=== PATIENT | female | born 1960 | race Caucasian/White ===

== ENCOUNTER → 2017-12-12 08:29 | Outpatient (CLI) | payer BC, MEDICARE, SELFPAY ==
--- NOTE | 2017-12-12 09:00 | XR_ITS ---
XR KUB CLINICAL INDICATION: ITS.REASON: TREATMENT TECHNICIAN FOR BE. PT TO BE RESCHEDULED PER ORDERING PHYSICIAN: Ronaldo Morrell MD PATIENT AGE: 57 years COMPARISON: None FINDINGS: Hydraulic Specialist exam obtained with barium in a shows residual stool within the transverse colon. Patient is rescheduled following more thorough bowel prep. There are degenerative changes in the lumbar spine. IMPRESSION: Mild amount of residual stool in the transverse colon
== END ==
PROVIDERS: Family Provider Internal Medicine Adolescent Medicine; PCP Internal Medicine Adolescent Medicine; Visit Provider Surgery
DX: Z86.010 Personal history of colon polyps (principal)
CPT/HCPCS: 74018

== ENCOUNTER → 2017-12-13 08:26 | Outpatient (CLI) | payer BC, MEDICARE, SELFPAY ==
--- NOTE | 2017-12-13 08:32 | FL_ITS ---
FL barium enema CLINICAL INDICATION: Evaluate for neoplasm ITS.REASON: FAILED COLONOSCOPY ORDERING PHYSICIAN: Ronaldo Morrell MD PATIENT AGE: 57 years COMPARISON: None FINDINGS: Case Management Specialist exam is unremarkable aside from some degenerative changes within the lower lumbar spine. The colon is visualized from rectum to cecum. The terminal ileum was not filled. There are scattered diverticula noted within the descending and sigmoid colon. No evidence of diverticulitis. No annular constricting lesions. No fixed polypoid filling defects. Small appendiceal stump did fill IMPRESSION: 1. Diverticulosis. 2. Otherwise negative air contrast barium enema
== END ==
PROVIDERS: Family Provider Internal Medicine Adolescent Medicine; PCP Internal Medicine Adolescent Medicine; Visit Provider Surgery
DX: Z86.010 Personal history of colon polyps (principal)
CPT/HCPCS: 74270

== ENCOUNTER → 2018-02-12 13:33 | Outpatient (CLI) | payer BC, MEDICARE, SELFPAY | PROVIDERS: Family Provider Internal Medicine Adolescent Medicine; PCP Internal Medicine Adolescent Medicine; Visit Provider Obstetrics & Gynecology | DX: N64.59 Other signs and symptoms in breast (principal); R92.8 Other abnormal and inconclusive findings on diagnostic imaging of breast | CPT/HCPCS: 77065 ==

== ENCOUNTER 2018-07-18 10:00 | Outpatient (RCR) | payer BC, MEDICARE, SELFPAY ==
--- NOTE | 2018-07-08 10:29 | HMH.PTOPWND ---
Rehab Outpt Wound Evaluation Rehab OP Wound Evaluation Start: 07/08/18 09:54 Freq: Status: Active Protocol: Document 07/08/18 10:07 CORNELL (Rec: 07/08/18 10:29 PHORPHAN [id number]) Electronically Signed By Ehsan Kim, PT 07/08/18 10:07 Subjective/History History History Pt is 58 yowf who presents with c/o savannah LE edema x ~ 2 yrs with insidious onset of syptoms. She reports edema is increased at night and results in pain and tingling. She reports being prescribed lasix for the edema with no decrease in symptoms. She has hx of appy, CLAUDIA, left foot bunionectomy and hammer toe fixation, right knee lawrence osetotomy, left knee scope, HTN, and fibromyalgia. Lymphedema Eval Classification of Lymphedema Secondary Lymphedema Yes Stemmer's sign Stemmer's Sign no Skin Changes Dry Skin Yes Other Changes Yes Pain Scale Pain Scale (0-10) 8 Affected Extremities Areas Affected by Lymphedema/Edema Right Lower Extremity Left Lower Extremity Manual Lymphatic Drainage Treatment Area MLD Treatment Area Right Lower Extremity Left Lower Extremity Wound Problems/Impairments Impairments Problems/Impairmments Palpation Tenderness Increased Edema Lymphedema Present Subjective C/O Pain Impaired Self Care/Self Management Prognosis Rehab Potential Good Clinical Impression Consistent with Diagnosis Yes Short Term Goals Number of Weeks 4 Decreased Palpation Tenderness Yes: to min Decrease Subjective C/O Pain Yes: 6/10 Patient to Understand Lymphedema Yes Treatment and Exercises Decrease Girth Measurments by (cm) Yes: by 5 cm Senior Care Goals Number of Weeks 8 Decreased Palpation Tenderness Yes: to none Decrease Subjective C/O Pain Yes: 3/10 Patient to be Ind w/ HEP Yes Patient to Adhere Lymphedema Precautions Yes Decrease Girth Measurments by (cm) Yes: by 15 cm Outpatient Therapy Plan of Care Treatment Plan May Include Therapeutic Exercise Including Home Yes Exercise Program Manual Therapy Techniques Yes Neuromuscular Re-education Yes Orthotics/Bracing/Splinting Yes Vasopneumatic Compression Pump
== END 2018-07-18 10:01 | disposition home or self-care (01) ==
LOC: PT 10:00
PROVIDERS: Visit Provider Internal Medicine Adolescent Medicine
DX: I89.0 Lymphedema, not elsewhere classified (principal)
CPT/HCPCS: 97140; 97162; 97760

== ENCOUNTER → 2018-09-22 08:45 | Outpatient (CLI) | payer BC, SELFPAY ==
--- NOTE | 2018-09-22 08:47 | XR_ITS ---
XR DEXA axial skeleton HISTORY: ITS.REASON: SCREENING ORDERING PHYSICIAN: Familia Ordoñez MD PATIENT AGE: 58 years COMPARISON: None FINDINGS: The BMD measured at the [Right] femoral neck is 0.981 g/cm squared with a T score of -0.4. This is considered Normal according to the World Health Organization criteria. Fracture risk is Low. Treatment is advised. L1 L4 density has a T score of 3.4 IMPRESSION: Normal bone density with low fracture risk. Recommend follow-up exam September 2020
--- NOTE | 2018-09-22 08:47 | MM_ITS ---
MM Dig screening mamm BI w/CAD CAD Screening COMPARISON: Digital mammograms with CAD 09/02/2017 and 6 month follow-up views right breast 02/12/2018 INDICATION: There is a history of breast cancer patient's paternal aunt diagnosed after menopause. There have been previous biopsies on each breast for benign disease. TECHNIQUE: Standard CC and MLO images were obtained. R2 CAD reviewed. FINDINGS: Moderate scattered fibroglandular densities are seen throughout both breasts. The asymmetric density central portion of the right breast is stable and unchanged from previous exams. There are scattered benign-appearing microcalcifications in each breast. There is a biopsy clip right breast. There is no suspicious lesion and no suspicious microcalcifications. IMPRESSION: Moderate breast density with no suspicious lesion seen BI-RADS Category: 2 Benign Finding(s) RECOMMENDED FOLLOW-UP: 1YR - 1 YEAR FOLLOW-UP (A letter has been sent to the patient regarding results of the study.)
== END ==
PROVIDERS: PCP Internal Medicine Adolescent Medicine; Visit Provider Obstetrics & Gynecology
DX: Z12.31 Encounter for screening mammogram for malignant neoplasm of breast (principal); Z01.419 Encounter for gynecological examination (general) (routine) without abnormal findings; Z78.0 Asymptomatic menopausal state; Z13.820 Encounter for screening for osteoporosis
CPT/HCPCS: 77067; 77080

== ENCOUNTER 2019-08-10 15:00 | Outpatient (RCR) | payer BC, SELFPAY ==
--- NOTE | 2019-08-06 17:34 | HMH.PTOPEV ---
PT Outpatient Evaluation Rehab PT Outpatient Evaluation Start: 08/06/19 16:36 Freq: Status: Active Protocol: Document 08/06/19 16:36 PDESEROUX (Rec: 08/06/19 17:34 PDESEROUX [id number]) Electronically Signed By Darian Monroe PT 08/06/19 16:36 Outpatient Therapy Subjective History Subjective History Pt. is a 59 year old female who presents to outpatient PT with complaints of chronic L 1st/2nd DIP ft. P !. Pt. reports recent exacerbation beginning in February 2019 d/t walking more. Pt. reports symptom relief with taping and using pads when she 's walking for a prolonged period of time. Pt. 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 Current medications include Lyrica, Furosemide, Diltiazem, Ranitidine, Oxybutynin, and Cyanocobalamin. PMH includes Cortisone inj. L knee, L/R Knee ATS, surgical reconstruction of hammertoe L ft., and a L ft. bunionectomy. Chief Complaint Pain Symptom Type Ache,Numbness Symptoms Relieved By Rest/Positioning,Brace/Support Symptoms Aggravated By Standing,Physical Activity, Walking Prior Functional Limitations None Current Functional Limitations Standing,Squatting,Recreation Activity,Walking,Stairs Symptom Description Constant but Variable Level of pain today (0-10) 6 Pain scale - at its best (0-10) 1 Pain scale - at its worst (0-10) 8 Ankle/Foot Eval Gait Observation General Gait Pattern Observation No Deviations/Normal Assistive Device Ambulation Assistive Device None Palpation Tenderness left Ankle/Foot Palpation Findings Tenderness Ankle/Foot Palpation Overall Comment grade 3 +TTP to 1st/2nd plantar DIP ROM bilateral Ankle/Foot ROM Reason Not Measured Within Functional Limits Great Toe ROM Reason Not Measured Within Functional Limits Accessory Movements Metatarsal Accessory Movements that 1st/2nd DIP L ft. Elicit Symptoms Toe Accessory Movement that Elicit DIP Dorsal [place],DIP Volar Symptoms [place],DIP Medial [place],DIP Lateral [place] MMT bilateral Ankle Dorsiflexion Strength Grade 5 Normal Ankle Plantarflexion Strength Grade 5 Normal
== END 2019-08-24 16:03 | disposition home or self-care (01) ==
LOC: PT.CARL 15:00
PROVIDERS: PCP Internal Medicine Adolescent Medicine; Visit Provider Internal Medicine Adolescent Medicine
DX: M20.42 Other hammer toe(s) (acquired), left foot (principal)
CPT/HCPCS: 97110; 97140; 97163

== ENCOUNTER → 2020-05-16 12:45 | Outpatient (CLI) | payer MEDICARE, BC, SELFPAY ==
--- NOTE | 2020-05-16 12:56 | MM_ITS ---
PROCEDURE: MM DIG SCREENING MAMM BI W/CAD Digital Breast Tomosynthesis Included CLINICAL INDICATION: SCREENING There is a history of breast cancer patient's paternal aunt. There has been a previous biopsy right breast for benign disease. There has been previous bilateral breast reduction surgery. Patient is currently on estrogen COMPARISON: MG DMDB DIG MAMM-DX LILI W/CAD from 09/02/2017 MG DXIMPRT MM Dig mamm DX implant RT CAD from 02/12/2018 MG SCBI MM Dig screening mamm BI w/CAD from 09/22/2018 TECHNIQUE: Standard CC and MLO images and 3D Tomosynthesis was obtained. R2 CAD reviewed. FINDINGS: Diffuse fibroglandular densities are seen throughout both breasts. There multiple benign-appearing micro in a few scattered macro calcifications in each breast. However there is a somewhat irregular asymmetric density upper-outer quadrant right breast with associated microcalcifications which appear to be somewhat indeterminate in appearance and have increased in number since the previous exam 09/22/2018. Recommend the patient return for spot compression magnification views and ultrasound for better evaluation and to determine if biopsy is indicated. No other suspicious abnormality is noted. IMPRESSION: Fibrofatty parenchyma with possible change in asymmetric density right breast with new somewhat indeterminate microcalcifications BI-RAD Category: 0 Need Additional Imaging Evaluation FOLLOW-UP: IMM Immediate Follow-up Recommended (A letter has been sent to the patient regarding results of the study.) Dictated Dr. Lenny Lindquist MD 05/20/2020 11:24 Dr. Lenny Urbina MD in [place] 05/20/2020 11:24
== END ==
PROVIDERS: PCP Internal Medicine Adolescent Medicine; Visit Provider Internal Medicine Adolescent Medicine
DX: Z12.31 Encounter for screening mammogram for malignant neoplasm of breast (principal)
CPT/HCPCS: 77063; 77067

== ENCOUNTER → 2020-05-25 08:11 | Outpatient (CLI) | payer MEDICARE, BC, SELFPAY ==
[2020-05-25 12:08] LABS: Coronavirus 19 IgM Antibody Negative (Negative)
[2020-05-25 12:10] LABS: Coronavirus 19 IgG Antibody Positive (Negative)
== END ==
PROVIDERS: Visit Provider Surgery
DX: Z20.828 Contact with and (suspected) exposure to other viral communicable diseases (principal)
CPT/HCPCS: 36415; 86328

== ENCOUNTER 2020-05-26 07:16 | Day surgery (SDC) | payer MEDICARE, BC, SELFPAY ==
[2020-05-24 12:59] VITALS: BMI 25.8
[2020-05-26] VITALS (7 sets, daily range): BP systolic 89–135; BP diastolic 51–93; PULSE 69–86; RESP 16–18; TEMP 36.3–36.4; O2SAT 94–98
--- NOTE | 2020-05-26 08:23 | P.PN_ITS ---
[facility] Anesthesia Checklist - Patient Identification Patient Identification: Arm Band - Structural Data Admitted From: Home Planned Operative Procedure/s: egd/colonoscopy Consent for Planned Operative Procedure(s) Verified: Yes Verified Documents: Surgical Consent, History and Physical - NPO Status Verified Time NPO: 00:00 - Additional verifications Anesthesia Reactions: No Hx Blood Transfusions: No Blood Transfusion Reaction: No - Airway Assessment C-Spine Mobility Assessed: Yes (mp2) TMJ Mobility Assessed: Yes Dentition: Good Dentition - Neurological Assessment Level of Consciousness: Awake, Alert - Anesthesia Plan Anesthesia Risk discussed: Yes Anesthesia Plan: Verified ASA Class: II Anesthesia Type: MAC [facility] History I have reviewed the patient's past medical history: Yes Medical History: Reports:: Gastroesophageal Reflux Disease(GERD), Hypertension Denies:: Cancer, Diabetes Mellitus Type 1, Diabetes Mellitus Type 2, Internal Pacemaker, Lung Disease, MRSA, Seizures *Have you ever received a pneumonia vaccine?: No *Have you received a flu vaccine this season?: Yes Other Medical History: Denies: Blood Transfusion Reaction Anesthesia experience/problems:: nac Laterality Cases: Right: Arthroscopy Shoulder, Bilateral: Arthroscopy Knee, Carpal Tunnel Release Other Surgeries: Yes: Appendectomy, Cardiac Catheterization, Colonoscopy, Hysterectomy-Total, Other. No: Pacemaker Amputation: No Fractures: No - *Social History Last grade of school completed: High school graduate Smoking Status: Never smoker # Packs/Day (cigarettes): 0 #Yrs smoked (if former smoker): 0 Alcohol Intake: never Substance Use Type: denies use *Occupational Status:: retired Housing: house Household Members: spouse *Travel in the last 8 weeks: None Family Hx:: Unable to obtain
--- NOTE | 2020-05-26 09:17 | HMH.SCOPE ---
- Procedure: Date: 05/26/20 Procedure Performed:: Esophagogastroduodenoscopy with biopsy Colonoscopy with polypectomy Indications:: History of peptic ulcer disease History of colon polyps Diverticulosis Abdominal pain Reflux Note: Significant difficulties in visualization on prior colonoscopy. Barium enema revealed no significant abnormality. Performing Provider:: Ronaldo Morrell MD Referring Provider:: . Sedation:: Monitored anesthesia care Procedure:: After informed consent was obtained the patient was taken to the endoscopy suite. Sedation ensued after the patient was transferred to the left lateral decubitus position. Pulse, blood pressure, and oxygen saturation were monitored throughout the procedure. The endoscope was advanced beyond the duodenal bulb. Retroflexion within the gastric lumen was accomplished. The gastroscope was carefully removed. Digital rectal exam revealed no significant abnormality. The colonoscope was placed in position. The entire colon was evaluated. The colonoscope was carefully removed and the patient was transferred to recovery in stable condition. Please see findings and specimens below for detail. Findings:: Gastroesophageal junction at 35 cm Moderate esophageal spasticity Mild to moderate streaking gastritis Minimal duodenitis Bowel preparation moderate Hemorrhoidal cushions Significant tortuosity of colon (especially sigmoid) Fairly severe spasticity/lack of relaxation Scattered diverticulosis Sessile polyp at 10 cm Specimens:: Antral biopsy Sessile colorectal polyp at 10 cm Recommendations:: Continue proton pump inhibition Timing of repeat colonoscopy is pending pathology but will likely be between 2-3 years secondary to history of complex polyps, spasticity, and lack of relaxation. Ongoing consideration of possible UGI/SBFT, gastric emptying study, and gastroenterology consultation. Complications:: No immediate Estimated blood obtained (mL): 1
== END 2020-05-26 10:18 | disposition home or self-care (01) ==
PROVIDERS: PCP Internal Medicine Adolescent Medicine; Visit Provider Surgery
PROC: 0DJ08ZZ Inspection of Upper Intestinal Tract, Via Natural or Artificial Opening Endoscopic (ICD-10-PCS; CPT 43235; principal; 2020-05-26 08:30)
DX: Z12.11 Encounter for screening for malignant neoplasm of colon (principal); K21.9 Gastro-esophageal reflux disease without esophagitis; K57.30 Diverticulosis of large intestine without perforation or abscess without bleeding; Z86.010 Personal history of colon polyps; K64.0 First degree hemorrhoids; Q43.8 Other specified congenital malformations of intestine; K62.1 Rectal polyp; Z87.11 Personal history of peptic ulcer disease; K22.4 Dyskinesia of esophagus; K29.60 Other gastritis without bleeding; K29.80 Duodenitis without bleeding; I10 Essential (primary) hypertension
CPT/HCPCS: 43239; 45380; 88305; J2704

== ENCOUNTER → 2020-06-07 13:50 | Outpatient (CLI) | payer MEDICARE, BC, SELFPAY ==
--- NOTE | 2020-06-07 13:59 | US_ITS ---
PROCEDURE: MM DIG MAMM DX UNILAT RT CAD Digital Breast Tomosynthesis Included CLINICAL INDICATION: ABN MAMM Abnormal mammogram COMPARISON: US BR US BREAST-RT COMPLETE W/AXILLA from 02/13/2017 MG DXIMPRT MM Dig mamm DX implant RT CAD from 02/12/2018 MG SCBI MM Dig screening mamm BI w/CAD from 09/22/2018 MG MM DIG SCREENING MAMM BI W/CAD from 05/16/2020 US US BREAST RT COMPLETE from 06/07/2020 TECHNIQUE: Spot-compression views performed along with right breast ultrasound FINDINGS: Magnification views of the right breast demonstrates coarse and fine granular somewhat dystrophic calcifications in the upper outer right breast. Suspect that the fine granular calcifications are so shaded with a vessel and therefore biopsy would be prohibitive. Would therefore recommend a six-month follow-up with Mag views to confirm short term stability. Right breast ultrasound: At 10 o'clock there are 2 nodules measuring 8 and 10 mm. These show peripheral areas of increased echogenicity with some heterogeneous decreased echogenicity centrally with some shadowing posteriorly under consistent with partially calcified cyst as seen on the mammogram possibly due to partially calcified oil cyst. No suspicious nodules are evident. IMPRESSION: BI-RAD Category: 3 Probably Benign Finding Short Term Follow-up FOLLOW-UP: 6M 6Month Follow-up (A letter has been sent to the patient regarding results of the study.) Dictated by: Lino Magana MD 06/13/2020 13:35 Lino Magana MD in [place] 06/13/2020 13:35
== END ==
PROVIDERS: PCP Internal Medicine Adolescent Medicine; Visit Provider Internal Medicine Adolescent Medicine
DX: R92.8 Other abnormal and inconclusive findings on diagnostic imaging of breast (principal)
CPT/HCPCS: 76641; 77061; 77065; G0279

== ENCOUNTER → 2020-06-15 16:39 | Outpatient (CLI) | payer MEDICARE, BC, SELFPAY ==
--- NOTE | 2020-06-15 16:43 | XR_ITS ---
PROCEDURE: XR KNEE RT 3V CLINICAL INDICATION: ACUTE PAIN OF R KNEE, EFUSSION, R KNEE COMPARISON: No exams were available for comparison FINDINGS: No fracture or dislocation. No lytic or blastic change. There is normal mineralization. There are minimal osteoarthritic changes of the medial and lateral compartment and at the patellofemoral joint with small suprapatellar effusion. There are 2 screws within the tibial tuberosity Other findings:None. IMPRESSION: Mild osteoarthritis with small knee joint effusion and postsurgical change Dictated by: Lino Magana MD 06/15/2020 17:50 Lino Magana MD in [place] 06/15/2020 17:50
== END ==
PROVIDERS: PCP Internal Medicine Adolescent Medicine; Visit Provider Nurse Practitioner Family
DX: M25.561 Pain in right knee (principal); M25.461 Effusion, right knee
CPT/HCPCS: 73562

== ENCOUNTER → 2020-07-12 08:41 | Outpatient (CLI) | payer MEDICARE, BC, SELFPAY ==
--- NOTE | 2020-07-12 08:41 | FL_ITS ---
PROCEDURE: FL UPPER GI SMALL BOWEL CLINICAL INDICATION: reflux Feels like food is stuck in stomach COMPARISON: No exams were available for comparison TECHNIQUE: FLUOROSCOPY TIME : 2 minutes and 9 seconds FINDINGS: The divider operator exam shows a faint soft tissue calcification along the mid aspect of the abdomen on the left. There are degenerative changes in the lumbar spine. There is some tertiary contraction of the esophagus. No hiatal hernia or annular constricting lesion. Stomach and duodenum have an unremarkable appearance. No ulcer or mass evident. The small bowel is unremarkable. No obstructing lesions masses or mucosal abnormalities. IMPRESSION: Mild esophageal dysmotility Otherwise negative upper GI and small-bowel follow-through. Dictated by: Lino Magana MD 07/12/2020 16:33 Lino Magana MD in [place] 07/12/2020 16:33
== END ==
PROVIDERS: PCP Internal Medicine Adolescent Medicine; Visit Provider Surgery
DX: K21.0 Gastro-esophageal reflux disease with esophagitis (principal); R10.10 Upper abdominal pain, unspecified
CPT/HCPCS: 74246; 74248

== ENCOUNTER → 2020-07-25 09:39 | Outpatient (CLI) | payer MEDICARE, BC, SELFPAY ==
--- NOTE | 2020-07-25 09:52 | NM_ITS ---
PROCEDURE: NM GASTRIC EMPTYING STUDY CLINICAL INDICATION: REFLUX AND UPPER ABD PAIN COMPARISON: No exams were available for comparison TECHNIQUE: Dose 0.58 mCi technetium sulfur colloid in radial labeled meal FINDINGS: The 1/2 emptying time is 72 minutes which is normal. At 243 minutes there was 19 percent retention. Images do not demonstrate any reflux. IMPRESSION: The 1/2 emptying time is normal at 72 minutes. However there was some delayed retention of approximately 19 percent at 240 minutes. Dictated by: Lino Magana MD 07/25/2020 14:45 Lino Magana MD in [place] 07/25/2020 14:45
--- NOTE | 2020-07-25 10:47 | HMH.ITSHM ---
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 []PROPRANOLOL PREGABALIN OXYBUTININ FUROSEMIDE ESTRADIOL DILTIAZEM SUCRALFATE OMEPRAZOLE
== END ==
PROVIDERS: PCP Internal Medicine Adolescent Medicine; Visit Provider Surgery
DX: K21.9 Gastro-esophageal reflux disease without esophagitis (principal); R10.10 Upper abdominal pain, unspecified
CPT/HCPCS: 78264; A9541

== ENCOUNTER 2020-08-30 10:00 | Outpatient (RCR) | payer MEDICARE, BC, SELFPAY | END 2020-09-05 17:30 | disposition home or self-care (01) | LOC: PT.CARL 10:00 | PROVIDERS: PCP Internal Medicine Adolescent Medicine; Visit Provider Orthopaedic Surgery | DX: M25.561 Pain in right knee (principal) | CPT/HCPCS: 97010; 97014; 97110; 97140; 97163; G0283 ==

== ENCOUNTER → 2020-10-17 09:30 | Outpatient (POV) | payer MEDICARE, BC, SELFPAY | PROVIDERS: Visit Provider Nurse Practitioner Family | DX: Z00.00 Encounter for general adult medical examination without abnormal findings (principal) ==

== ENCOUNTER → 2020-11-17 13:25 | Outpatient (CLI) | payer MEDICARE, BC, SELFPAY ==
--- NOTE | 2020-11-17 13:31 | XR_ITS ---
PROCEDURE: XR HAND RT MIN 3V CLINICAL INDICATION: OSTEOARTHRITIS Pain COMPARISON: No exams were available for comparison FINDINGS: No fracture or dislocation. No lytic or blastic change. There is normal mineralization. Mild osteoarthritic changes are present at the 1st metacarpophalangeal joint and 1st interphalangeal joint as well as the DIP and PIP of the 2nd digit and the DIP of the 3rd and 4th fingers. There has been prior joint replacement at the 1st carpal metacarpal joint with a metallic ball at this joint space. Other findings:None. IMPRESSION: Mild osteoarthritic changes. Dictated by: Lino Magana MD 11/17/2020 15:57 Lino Magana MD in [place] 11/17/2020 15:57
--- NOTE | 2020-11-17 13:31 | MM_ITS ---
PROCEDURE: MM DIG MAMM DX UNILAT RT CAD Digital Breast Tomosynthesis Included CLINICAL INDICATION: 6 mth f/u rt breast calcifications COMPARISON: MG SCBI MM Dig screening mamm BI w/CAD from 09/22/2018 MG MM DIG SCREENING MAMM BI W/CAD from 05/16/2020 MG MM DIG MAMM DX UNILAT RT CAD from 06/07/2020 TECHNIQUE: Standard images performed along with Mag views and 3D tomosynthesis FINDINGS: Average fibroglandular tissue. Multiple benign areas of calcification are noted with suspected or oil cyst. Indeterminate calcification noted in the upper outer aspect of the right breast. The calcifications may have slightly increased in number. Stereotactic biopsy suggested for further evaluation. IMPRESSION: BI-RAD Category: 4 Suspicious Abnormality - Biopsy Considered FOLLOW-UP: BIO Biopsy Recommended (A letter has been sent to the patient regarding results of the study.) Dictated by: Lino Magana MD 11/25/2020 13:16 Lino Magana MD in [place] 11/25/2020 13:16
--- NOTE | 2020-11-17 13:31 | XR_ITS ---
PROCEDURE: XR HAND LT MIN 3V CLINICAL INDICATION: Pain COMPARISON: No exams were available for comparison FINDINGS: There are mild osteoarthritic changes at the PIP and DIP of the 2nd and 3rd digits in the PIP of the 4th finger as well as the metacarpophalangeal joint of digits 2 and 3. The trapezium is not identified. Osteoarthritic changes present at the scapho triquetrum joint and at the 1st metacarpal-carpal joint. The base of the 1st metacarpal appears to articulate with the scaphoid with a trapezium not identified. IMPRESSION: Degenerative changes as described above Dictated by: Lino Magana MD 11/17/2020 16:00 Lino Magana MD in [place] 11/17/2020 16:00
== END ==
PROVIDERS: PCP Internal Medicine Adolescent Medicine; Visit Provider Internal Medicine Adolescent Medicine
DX: R92.8 Other abnormal and inconclusive findings on diagnostic imaging of breast (principal); M19.042 Primary osteoarthritis, left hand; M19.041 Primary osteoarthritis, right hand
CPT/HCPCS: 73130; 77061; 77065; G0279

== ENCOUNTER → 2020-12-21 09:29 | Outpatient (CLI) | payer MEDICARE, BC, SELFPAY ==
--- NOTE | 2020-12-21 | MM_ITS ---
PROCEDURE: MM STEREOTACTIC LOC RT CLINICAL INDICATION: ABN RT BREAST MAMM Right breast calcifications FINDINGS: Limited focused H&P: Limited physical exam performed by . Lungs: Clear. Heart: Regular rate and rhythm. Mental status: Within normal limits. Informed consent was obtained prior to the procedure. TECHNIQUE: The patient was given 1 mg of Xanax, Lortab 7.5 Mg, and analgesia and minor sedation. The patient was placed on the stereotactic table and the calcifications in the upper outer aspect of the right breast was localized in the most appropriate projection. The breast was prepped in the routine manner, with sterile prep and the overlying skin anesthetized. A 3 to 4 mm skin incision was performed and the 9 gauge sorus vacuum-assisted core biopsy needle was advanced to the region of the calcification. Pre- and post fire images were obtained. After adequate positioning relative to the calcifications was ensured, multiple biopsies were obtained in the region of the calcifications specifically. The core biopsies obtained were sent for specimen mammography. After the calcifications were indeed identified on the specimen mammogram, the procedure was terminated. There are a few calcifications demonstrated on the specimen radiograph. The clip placement however showed the clip to be in the region of the abnormal calcifications. Recommend six-month follow-up to confirm stability. Pathology: Benign breast showing mildly proliferative fibrocystic changes including adenosis and stromal fibrosis with features of early fibroma toys change. Microcalcifications were noted in fat necrosis and adenosis. Negative for carcinoma. A tiny titanium nonferromagnetic MicroMark as positioned through the mammotome needle into the biopsy site. IMPRESSION: 1. Successful stereotactic vacuum-assisted core biopsy of the breast calcifications. 2. Successful placement of a titanium metal MicroMark. 3. No noted complications. SPECIMEN RADIOGRAPH: The mammographically evident calcifications from the prior study are currently evident within the Peace dish and within the specimens obtained during mammotome procedure. This is considered an adequate specimen and the procedure was terminated. IMPRESSION: Successful removal of described breast calcifications. BREAST MAMMOGRAM: Compared to the prior study, a few of the previously noted calcification have been removed. A small MicroMark clip was inserted into the region of the calcifications. There is evidence of soft tissue changes in the region of the biopsy was soft tissue gas and edema. 4. Adequate placement of the MicroMark clip postbiopsy. 5. Postbiopsy changes within the breast. Dictated by: Lino Magana MD 01/06/2021 10:29 Lino Magana MD in [place] 01/06/2021 10:29
== END ==
PROVIDERS: PCP Internal Medicine Adolescent Medicine; Visit Provider Internal Medicine Adolescent Medicine
DX: R92.8 Other abnormal and inconclusive findings on diagnostic imaging of breast (principal); R92.1 Mammographic calcification found on diagnostic imaging of breast
CPT/HCPCS: 19081; 76098; 77065; 88305

== ENCOUNTER → 2021-01-16 08:47 | Outpatient (POV) | payer BC, MEDICARE, SELFPAY | PROVIDERS: Visit Provider Nurse Practitioner Family | DX: Z00.00 Encounter for general adult medical examination without abnormal findings (principal) ==

== ENCOUNTER → 2021-09-26 19:50 | Outpatient (CLI) | payer MEDICARE, BC, SELFPAY ==
[2021-09-26 20:02] LABS: Basophils # 0.1 K/mm3 (0-0.2); Basophils % 1.4 % (0.1-2.0); Eosinophils # 0.1 K/mm3 (0.0-0.4); Eosinophils % 1.2 % (0.1-12.0); Hemoglobin 14.3 g/dL (12.2-16.2); Lymphocytes # 2.2 K/mm3 (0.7-4.5); Lymphocytes % 36.3 % (10-50); Mean Corpuscular HGB Conc 33.9 g/dL (31.8-35.4); Mean Corpuscular Hemoglobin 32.3 pg (27.0-31.2); Mean Corpuscular Volume 95.2 fl (81-99); Mean Platelet Volume 9.7 fl (7.4-10.4); Monocytes # 0.4 K/mm3 (0.1-1.0); Monocytes % 6.8 % (1.7-9.3); Neutrophils # 3.3 K/mm3 (1.8-7.8); Neutrophils % 54.3 % (37.0-80.0); Platelet Count 293 K/mm3 (142-424); Red Blood Count 4.42 M/mm3 (4.20-5.40); Red Cell Distribution Width 12.8 % (11.5-17.5)
[2021-09-26 20:37] LABS: Alanine Aminotransferase 34 U/L (12-78); Albumin Level 4.4 g/dl (3.5-5.0); Albumin/Globulin Ratio 1.6 (1.1-1.8); Alkaline Phosphatase 91 U/L (38-126); Anion Gap 10.3 mEq/L (5-15); Aspartate Amino Transferase 34 U/L (14-36); Bilirubin,Total 0.3 mg/dl (0.2-1.3); Blood Urea Nitrogen 16 mg/dl (7-17); Calcium 9.1 mg/dl (8.4-10.2); Carbon Dioxide 27 mmol/L (22.0-30.0); Chloride 104 mmol/L (98-107); Chol/HDL Ratio 4.3 (1-3.5); Cholesterol 153 mg/dl (140-200); Estimated Glomerular Filt Rate 101 ml/min (>60); GFR (African American) 123 ML/MIN (>60); Globulin 2.7 g/dL (1.3-3.2); Glucose 92 mg/dl (74-100); HDL Cholesterol 36 mg/dl (40-60); Potassium 4.3 mmoL/L (3.5-5.1); Sodium 137 mmol/L (136-145); Total Protein,Serum 7.1 g/dl (6.3-8.2); Triglycerides 198 mg/dl (30-150); VLDL Cholesterol 40 mg/dL (0-40)
[2021-09-26 20:48] LABS: Direct LDL Cholesterol 82.58 mg/dL (100-129)
[2021-09-26 21:24] LABS: Vitamin B12 449 pg/mL (239-931)
[2021-09-26 21:49] LABS: Hemoglobin A1C 5.3 % (4.0-6.0)
[2021-09-26 22:03] LABS: 25-OH Vitamin D, Total 72.2 ng/mL (30-100)
[2021-09-26 22:04] LABS: Free Thyroxine Index 2.9 ug/dL (5.93-13.13); T4 (Thyroxine) 7.4 ug/dl (5.53-11.0); Triiodothryronine (T3) Uptake 39 % (23.5-40.5)
[2021-09-26 22:18] LABS: Thyroid Stimulating Hormone 1.75 uIU/mL (0.465-4.68)
== END ==
PROVIDERS: Visit Provider Internal Medicine Adolescent Medicine
DX: I10 Essential (primary) hypertension (principal); E53.8 Deficiency of other specified B group vitamins; G62.9 Polyneuropathy, unspecified; M81.0 Age-related osteoporosis without current pathological fracture; Z79.899 Other long term (current) drug therapy
CPT/HCPCS: 80053; 80061; 82306; 82607; 83036; 84436; 84443; 84479; 85025

== ENCOUNTER → 2021-10-23 08:52 | Outpatient (CLI) | payer MEDICARE, BC, SELFPAY ==
--- NOTE | 2021-10-23 08:57 | XR_ITS ---
FINAL REPORT TECHNIQUE: Bone mineral density was calculated of the lumbar spine and hip. CLINICAL HISTORY: OSTEOPOROSIS FINDINGS: Using L1-4, the bone mineral density of the spine is 1.458 g/cm2, corresponding to T-score of 3.6. Using the left hip, the bone mineral density of the femoral neck is 0.820 g/cm2, corresponding to a T-score of -0.3. NOTE: T-score: Standard deviation compared with peak bone mass of young adult mean. *Following the recommendations of the International Society of Bone densitometry, classification of hip BMD is based on the lower of two T-scores; total hip or femoral neck. IMPRESSION: Normal bone mineral density of the lumbar spine and left hip. Reviewed, Interpreted and Dictated by Andrés Hunt III, MD Transcribed by Marina Mullins Authenticated by Andrés Hunt III, MD on 10/23/2021 10:53:50 AM [facility]
== END ==
PROVIDERS: PCP Internal Medicine Adolescent Medicine; Visit Provider Internal Medicine Adolescent Medicine
DX: Z78.0 Asymptomatic menopausal state (principal)
CPT/HCPCS: 77080

== ENCOUNTER → 2021-12-14 10:01 | Outpatient (CLI) | payer MEDICARE, BC, SELFPAY ==
--- NOTE | 2021-12-14 10:05 | MM_ITS ---
PROCEDURE INFORMATION: Exam: MG Bilateral Screening 3D Mammography Exam date and time: 12/14/2021 10:05 AM Age: 61 years old Clinical indication: Encounter for screening mammogram for malignant neoplasm of breast; h/o breast reduction and lift TECHNIQUE: Imaging protocol: Bilateral Screening tomosynthesis and 2D mammography including computer-aided detection (CAD) when performed. COMPARISON: 1. MG MM CLIP PLACEMENT RT 12/21/2020 10:58 AM 2. MG DIGMAMMDX MAMMOGRAM DX-GREEN BUILDING DESIGN SPECIALIST N/C 09/12/2009 1:34 PM FINDINGS: MAMMOGRAPHY: Breast composition: The breast tissue is composed of scattered areas of fibroglandular density. Mass: None. Architectural distortion: Questionable architectural distortion in the posterior third of the right upper outer quadrant Calcifications: No suspicious calcifications. Asymmetric density: None. Skin thickening: None. Axillary adenopathy: None. IMPRESSION: Patient to be recalled for spot compression views of the right breast in the CC and MLO projections, a full 90 degree lateral view, and right breast ultrasound for further evaluation of questionable distortion ASSESSMENT: BI-RADS Category 0: Incomplete- Need Additional Imaging Evaluation and/or Prior Mammograms for Comparison
== END ==
PROVIDERS: PCP Internal Medicine Adolescent Medicine; Visit Provider Internal Medicine Adolescent Medicine
DX: Z12.31 Encounter for screening mammogram for malignant neoplasm of breast (principal)
CPT/HCPCS: 77063; 77067

== ENCOUNTER → 2022-01-12 14:09 | Outpatient (CLI) | payer MEDICARE, BC, SELFPAY ==
--- NOTE | 2022-01-12 14:13 | MM_ITS ---
PROCEDURE INFORMATION: Exam: US Right Breast, Complete MG Right Diagnostic Breast Tomosynthesis Exam date and time: 01/12/2022 2:21 PM Age: 61 years old Clinical indication: Patient recalled on the basis of a screening mammogram for further evaluation; Right breast; questionable distortion. History of prior mastopexy TECHNIQUE: Imaging protocol: Complete ultrasound of all four quadrants of the Right breast and the retroareolar regions, including ultrasound of the axilla when performed. Right Diagnostic tomosynthesis and 2D mammography including computer-aided detection (CAD) when performed. Unilateral or bilateral exam. COMPARISON: MG MM DIG SCREENING MAMM BI W/CAD 12/14/2021 10:05 AM FINDINGS: MAMMOGRAPHY: Digital diagnostic spot compression views of the right breast demonstrate normal overlapping fibroglandular structures without persistent distortion ULTRASOUND: Sonographic images of the right breast including the retroareolar region, all 4 quadrants and the axilla do not demonstrate any solid or cystic masses. No architectural distortion or acoustical shadowing. No skin thickening or axillary adenopathy. IMPRESSION: No mammographic or sonographic evidence of malignancy. Annual bilateral mammographic screening is recommended unless otherwise clinically indicated. ASSESSMENT: BI-RADS Category 1: Negative
== END ==
PROVIDERS: PCP Internal Medicine Adolescent Medicine; Visit Provider Internal Medicine Adolescent Medicine
DX: R92.8 Other abnormal and inconclusive findings on diagnostic imaging of breast (principal)
CPT/HCPCS: 76641; 77061; 77065; G0279

== ENCOUNTER 2022-04-25 09:00 | Outpatient (RCR) | payer MEDICARE, BC, OTHER, SELFPAY ==
--- NOTE | 2022-03-26 12:57 | HMH.PTOPEV ---
PT Outpatient Evaluation Rehab PT Outpatient Evaluation Start: 03/26/22 10:30 Freq: Status: Active Protocol: Document 03/26/22 10:30 HERMES (Rec: 03/26/22 12:57 PDESEROUX [id number]) Electronically Signed By Darian Monroe PT 03/26/22 10:30 Outpatient Therapy Subjective History Subjective History Pt. is a 61 year old female who presents to [facility] Out[facility] Therapy Services in [place] for the initial evaluation this date( 03/26/22) w/ c/o subacute on chronic and constant RUE shldr ./elbow/hand P!, numbness, weakness, and burning of insidious onset 4 weeks ago. Pt. reports having a chronic history of similar RUE shldr. symptoms, but states her Chiropractor would help to provide her w/ symptom relief through cervical/thoracic and rib manipulations. However, pt . reports having no symptom relief w/ going to her Chiropractor and was referred back to PCP for further assessment. Pt. reports having some symptom relief w/ a steroid injection, but states symptoms have returned. Pt. denies having any recent diagnostic imaging for current complaint. Pt. reports her hand will go numb while holding and looking down at her phone and scrubbing the floor. Pt. reports having some symptom relief w/ resting and OTC Ibuprofen. Pt. denies having any numbness/tingling into the LUE, denies having a pacemaker, denies history of cancer(self), denies Diabetes, denies latex allergy, but reports having a medicational allergy to Sulfa drugs. Current medications include Ibuprofen and Lyrica. PMH includes S/P RUE shldr. RC Repair, S/P Carpal Tunnel
== END 2022-05-15 09:24 | disposition home or self-care (01) ==
LOC: PT.CARL 09:00
PROVIDERS: PCP Internal Medicine Adolescent Medicine; Visit Provider Internal Medicine Adolescent Medicine
DX: M25.511 Pain in right shoulder (principal)
CPT/HCPCS: 20560; 97010; 97014; 97110; 97140; 97163; G0283

== ENCOUNTER → 2022-05-19 08:41 | Outpatient (CLI) | payer MEDICARE, BC, SELFPAY | PROVIDERS: PCP Internal Medicine Adolescent Medicine; Visit Provider Surgery | DX: U07.1 COVID-19 (principal) | CPT/HCPCS: C9803; U0003; U0005 ==

== ENCOUNTER → 2022-05-20 14:52 | Outpatient (CLI) | payer MEDICARE, BC, SELFPAY | PROVIDERS: PCP Internal Medicine Adolescent Medicine; Visit Provider Surgery | DX: Z01.812 Encounter for preprocedural laboratory examination (principal); Z20.822 Contact with and (suspected) exposure to COVID-19; Z12.11 Encounter for screening for malignant neoplasm of colon | CPT/HCPCS: C9803; U0003; U0005 ==

== ENCOUNTER → 2022-05-21 10:38 | Outpatient (CLI) | payer MEDICARE, BC, SELFPAY ==
[2022-05-21 10:57] LABS: Coronavirus 19, PCR Not Detected (NotDetected); Influenza A, PCR Not Detected (NotDetected); Influenza B, PCR Not Detected (NotDetected)
== END ==
PROVIDERS: PCP Internal Medicine Adolescent Medicine; Visit Provider Surgery
DX: Z01.812 Encounter for preprocedural laboratory examination (principal); Z20.822 Contact with and (suspected) exposure to COVID-19; Z12.11 Encounter for screening for malignant neoplasm of colon
CPT/HCPCS: C9803; U0003; U0005

== ENCOUNTER 2022-05-22 06:10 | Day surgery (SDC) | payer MEDICARE, BC, SELFPAY ==
[2022-05-17 12:13] VITALS: BMI 26.4
--- NOTE | 2022-05-20 09:54 | PC.NURSE ---
Attempted to call and notifiy pt of positive results for covid swab. no answer at home or on cell. message left to call house back. [phone]
[2022-05-22] VITALS (7 sets, daily range): BP systolic 82–137; BP diastolic 59–96; PULSE 69–75; RESP 16–18; TEMP 36.6; O2SAT 91–98
--- NOTE | 2022-05-22 07:02 | HMH.ANESCL ---
[facility] Anesthesia Checklist - Patient Identification Patient Identification: Arm Band - Structural Data Admitted From: Home Planned Operative Procedure/s: Colonoscopy Consent for Planned Operative Procedure(s) Verified: Yes - NPO Status Verified Time NPO: 02:30 (Prep) - Additional verifications Anesthesia Reactions: No Hx Blood Transfusions: No Blood Transfusion Reaction: No - Airway Assessment C-Spine Mobility Assessed: Yes TMJ Mobility Assessed: Yes Dentition: Good Dentition - Neurological Assessment Level of Consciousness: Awake Hx Seizures: No Numbness or tingling in extremities: No - Anesthesia Plan Anesthesia Risk discussed: Yes Anesthesia Plan: Verified ASA Class: II Anesthesia Type: MAC [facility] History I have reviewed the patient's past medical history: Yes Medical History: Reports:: Gastroesophageal Reflux Disease(GERD), Hypertension Denies:: Cancer, Diabetes Mellitus Type 1, Diabetes Mellitus Type 2, Internal Pacemaker, Lung Disease, MRSA, Seizures *Have you ever received a pneumonia vaccine?: No *Have you received a flu vaccine this season?: Yes Other Medical History: Denies: Blood Transfusion Reaction Anesthesia experience/problems:: None Laterality Cases: Right: Arthroscopy Shoulder, Bilateral: Arthroscopy Knee, Carpal Tunnel Release Other Surgeries: Yes: Appendectomy, Cardiac Catheterization, Colonoscopy, EGD, Hysterectomy-Total, Other. No: Pacemaker Amputation: No Fractures: No - *Social History Last grade of school completed: High school graduate Smoking Status: Never smoker # Packs/Day (cigarettes): 0 #Yrs smoked (if former smoker): 0 Alcohol Intake: never Substance Use Type: denies use *Occupational Status:: retired Housing: house Household Members: spouse *Travel in the last 8 weeks: None Family Hx:: Diabetes, Heart Attack, Hypertension
--- NOTE | 2022-05-22 08:06 | P.PCN_ITS ---
- Procedure: Date: 05/22/22 Patient Date of :: 1960 Procedure Performed:: Colonoscopy Indications:: History of colon polyps Colonoscopy 2 years ago revealed adenoma at 10 cm. Hemorrhoids and sigmoid diverticulosis also confirmed. Visualization somewhat limited secondary to tortuosity/spasticity/lack of relaxation. Performing Provider:: Ronaldo Morrell MD Referring Provider:: . Sedation:: Monitored anesthesia care Procedure:: After informed consent was obtained the patient was taken to the endoscopy suite. Sedation ensued after the patient was transferred to the left lateral decubitus position. Pulse, blood pressure, and oxygen saturation were monitored throughout the procedure. Digital rectal exam revealed no significant abnormali ty. The colonoscope was placed in position. The entire colon was evaluated. The colonoscope was carefully removed and the patient was transferred to recovery in stable condition. Please see findings and specimens below for detail. Findings:: Unchanged hemorrhoidal cushions Bowel preparation moderate Scattered sigmoid diverticulosis Fairly severe sigmoid tortuosity Moderate lack of relaxation/spasticity Specimens:: None Recommendations:: Repeat colonoscopy in 3-5 years secondary to history of polyps, slightly- limiting bowel preparation, and spasticity/tortuosity/lack of relaxation. Complications:: No immediate Estimated blood obtained (mL): 0
== END 2022-05-22 08:44 | disposition home or self-care (01) ==
LOC: OUTP 06:12
PROVIDERS: PCP Internal Medicine Adolescent Medicine; Visit Provider Surgery
PROC: 0DJD8ZZ Inspection of Lower Intestinal Tract, Via Natural or Artificial Opening Endoscopic (ICD-10-PCS; principal; 2022-05-22 07:30)
DX: Z12.11 Encounter for screening for malignant neoplasm of colon (principal); Z86.010 Personal history of colon polyps; I10 Essential (primary) hypertension; K21.9 Gastro-esophageal reflux disease without esophagitis; Z79.899 Other long term (current) drug therapy
CPT/HCPCS: G0105; J2704

== ENCOUNTER → 2022-07-23 06:11 | Outpatient (CLI) | payer MEDICARE, BC, OTHER, SELFPAY ==
--- NOTE | 2022-07-23 | CA_ITS ---
APPROVED REPORT Exam: Exercise Treadmill Technologist: Sherron Matson, Ht: 5 ft 6 in Wt: 171 lbs BSA: 1.87 m2 HR: 57 bpm BP: 143/93 mmHg Medical History Medications: Omeprazole,,,,, Propranolol,,,,, Lyrica,,,,, Sucralfate,,,,, LiNZESS,,,,, Furosemide,,,,, DilTiazem HCI,,,,, Stress Test Details Test: Arsenio HR Resting HR: 49 bpm Max Heart Rate (APMHR): 157.699729 bpm Max HR Achieved: 136 bpm Target HR (85% APMHR): 133.959418 bpm % of APMHR: 86.62 Recovery HR: 104 bpm BP Resting BP: 143/92 mmHg Max BP: 191/103 mmHg Recovery BP: 175.0/100.0 mmHg ECG Clinical Exercise duration: 09:06 min Highest Stage Achieved: IV Exercise capacity: 10.1 METs Stress ECG Conclusion Monitor having trouble accurately reading Heart rate. Symptoms: No CP/SOA present. Arrhythmias/Ectopy: occasional PAC/PVC ST-T Changes: <1.5mm ST changes. Test Summary REST . . . . . . . Sitting REST . . . . . . . Sitting REST . . . . . . . Standing REST 08:09 0.0 0.0 49 . 143/ 92 . . Stage 1 01:00 10.0 1.7 78 . . . . Stage 1 02:00 10.0 1.7 46 . . . . Stage 1 03:00 10.0 1.7 37 . 148/ 94 . . Stage 2 01:00 12.0 2.5 33 . . . . Stage 2 02:00 12.0 2.5 102 . . . . Stage 2 03:00 12.0 2.5 58 . 158/ 98 . . Stage 3 01:00 14.0 3.4 97 . . . . Stage 3 02:00 14.0 3.4 66 . . . . Stage 3 03:00 14.0 3.4 85 . 150/100 . . Stage 4 00:06 16.0 4.2 88 . . . Stop exercise at 09:06 RECOVERY 01:00 0.0 0.0 74 . . . . RECOVERY 02:00 0.0 0.0 . . 191/103 . . RECOVERY 03:00 0.0 0.0 . . 173/104 . . RECOVERY 03:58 0.0 0.0 . . 175/100 . . Electronically signed by : Lamine Fernandez MD 07/24/2022 06:34:37
--- NOTE | 2022-07-23 06:19 | NM_ITS ---
APPROVED REPORT Exam: Nuclear Stress Test Indication: fm hx, c.p., lt arm pain, palpitations, sycope Patient Location: Outpatient Stress Tech: Sherron Louis CO Tech:Brit Perkins, ARRT RT (R)(N)(M) Ht: 5 ft 6 in Wt: 165 lbs Bra Size: 36C HR: 49 bpm BP: 143/92 mmHg BSA: 1.84 m2 TID: 1.42 BMI: 26.6 History: fm hx, c.p., lt arm pain, palpitations, sycope Procedure: Patient exercised on Arsenio protocol 9:06 minutes and sec, resting heart rate 49 bpm, resting blood pressure 143/92 mmHg, with exercise maximum heart rate achived was 136 bpm which is 87 % of the maximum predicted heart rate and blood pressure was 197/103 mmHg. Test was stopped due to fatigue. Patient denied any complaint of chest pain. Patient has good exercise capacity, achieved 10.1 METs of workload on treadmill, the blood pressure response to exercise was Hypertensive. Electrocardiogram Resting electrocardiogram shows sinus rhythm low-voltage QRS complexes right ventricular conduction delay, with exercise there is less than 1.[address] segment depression noted from the baseline EKG. The EKG portion of the exercise Myoview is negative for ischemia. Cardiac Stress and Resting SPECT Images: Cardiac Stress and Resting SPECT images were obtained using technetium 99m Myoview 31.7 mCi stress and 10.52 mCi at rest. Gated SPECT for analysis of segmental wall motion and calculation of the ejection fraction also done. Prone images were also obtained. Cardiac stress and rest SPECT may show uniform myocardial activity without segmental perfusion abnormality, computer derived ejection fraction is 59% with no regional wall motion abnormality, right ventricle is normal size and contractility. There is transient ischemic dilatation of the left ventricular with value of 1.45 . Conclusion: 1. The EKG portion of the exercise is negative for ischemia, patient has good exercise capacity achieved 10.1 METs of workload on treadmill, the blood pressure response to exercise was hypertensive. There was no exercise-induced chest discomfort. 2. No scintigraphic evidence of reversible ischemia seen, computer derived ejection fraction is 59% with no regional wall motion abnormality, right ventricle is normal size and contractility. There is transient ischemic dilatation of the left ventricle seen as described above, but causes for transient ischemic dilatation without perfusion abnormality include hypertensive heart disease, microvascular disease, diabetes and elevated left ventricular end-diastolic pressure. Clinical correlation is recommended. 3. Likely normal exercise Myoview study with exception of hypertensive blood pressure response to exercise. Electronically signed by : Lamine Fenrandez MD 07/24/2022 06:41:16
== END ==
PROVIDERS: PCP Internal Medicine Adolescent Medicine; Visit Provider Internal Medicine Adolescent Medicine
DX: M25.511 Pain in right shoulder (principal); R07.9 Chest pain, unspecified; R00.2 Palpitations
CPT/HCPCS: 78452; 93017; A9502

== ENCOUNTER 2022-10-25 10:00 | Outpatient (RCR) | payer MEDICARE, BC, SELFPAY ==
--- NOTE | 2022-10-08 10:40 | HMH.PTOPWND ---
Rehab Outpt Wound Evaluation Rehab OP Wound Evaluation Start: 10/08/22 09:56 Freq: Status: Active Protocol: Document 10/08/22 10:27 CORNELL (Rec: 10/08/22 10:40 PHORPHAN [id number]) E-signed By Ehsan Kim, PT Subjective/History History History This is the initial PT eval for Ruthy Giraldo 62 yowf who presents with B LE edema over the past several years, but worse over the past 1-2 mos. She reports significant increased pain in B feet and ankles as well. She reports swelling is worse as the day goes on, especially with dependent positioning of B LE. She reports hx of L foot surgery, B knee surgery, CLAUDIA, spleen cyst removal, abdominal hernia repair, SBO with ex-lap, tummy tuck, and fibromyalgia. Subjective Subjective Pt c/o 5/10 pain at this time in B feet and legs, 10/10 at worst. 1+ pitting edema noted to B ankles this date. .1/4 tenderness to palpation noted to B LE in gaitor area. Lymphedema Eval Classification of Lymphedema Secondary Lymphedema Yes Stemmer's sign Stemmer's Sign no Stage of Lymphedema Lymphedema stages Stage I (Pitting edema, reduces w/ elevation, no fibrosis) Skin Changes Dry Skin Yes Discoloration of Skin Yes Other Changes Yes Pain Scale Pain Scale (0-10) 5 Affected Extremities Areas Affected by Lymphedema/Edema Right Lower Extremity,Left Lower Extremity Manual Lymphatic Drainage Treatment Area MLD Treatment Area Right Lower Extremity,Left Lower Extremity Wound Problems/Impairments Impairments Problems/Impairmments Palpation Tenderness,Impaired Walking,Impaired Standing, Impaired Sitting,Impaired Recreational Activities, Increased Edema,Lymphedema Present,Subjective C/O Pain, Impaired Self Care/Self Management Prognosis Rehab Potential Good Clinical Impressi
== END 2022-10-25 10:05 | disposition home or self-care (01) ==
LOC: PT 10:00
PROVIDERS: PCP Internal Medicine Cardiovascular Disease; Visit Provider Internal Medicine Adolescent Medicine
DX: I89.0 Lymphedema, not elsewhere classified (principal)
CPT/HCPCS: 97140; 97162

== ENCOUNTER 2022-11-03 11:11 | Emergency (ER) | payer MEDICARE, BC, SELFPAY ==
[2022-11-03 11:25] VITALS: BP 130/78; PULSE 82; RESP 18; TEMP 36.6; O2SAT 99; BMI 31.7
[2022-11-03 11:30] VITALS: BP 130/78; PULSE 82; RESP 18; TEMP 36.7; O2SAT 99; BMI 31.6
--- NOTE | 2022-11-03 11:45 | EXP.UTC ---
Discharge Plan Disposition Patient Disposition: Home, Self-Care Condition: Good Prescriptions Prescriptions: New erythromycin 5 mg/gram (0.5 %) ointment 0.5 inch ophthalmic (eye) BID Qty: 3.5 0RF No Action diltiazem HCl 30 mg tablet 30 mg PO DAILY furosemide 20 mg tablet 20 mg PO TID pregabalin [Lyrica] 200 mg capsule 200 mg PO BID Linzess 72 mcg capsule 72 mcg PO DAILY esomeprazole magnesium 20 MG granules for susp in packet 20 mg PO DAILY famotidine 20 MG tablet 20 mg PO BID progesterone micronized 200 MG capsule 200 mg PO DAILY xpnczfva-mqy-IR-lycopen-lutein 1 EACH tablet 1 each PO DAILY thyroid (pork) 30 MG tablet 30 mg PO DAILY Bifidobacterium animalis 6 MG capsule 6 mg PO DAILY L. acidophilus-dig enz cmb 5 1 EACH capsule 1 each PO DAILY Referrals Follow up/Referrals: Toy Paredes MD [Primary Care Provider] - See instructions Activity Restrictions/Add. Instructions Additional Instructions/Restrictions: keep eye patch in place for 24 hours then remove, call Dr Arechiga for any issues Clinical Impressions Clinical Impression: Acute left eye pain Instructions Patient Instructions: Conjunctivitis Discharge ED Provider: Sherlyn ([facility])[place] [facility] [place] General Stated complaint: LT Eye inflammation redness and pain Mode of Arrival: Ambulatory Source of Information: Patient Limitations: No Limitations Time Seen by Provider: 11/03/22 11:45 Description of Symptoms (Recalled from Triage Doc. by RN): PATIENT C/O REDNESS, WATERING, AND IRRITATION TO LEFT EYE THAT STARTED TODAY. HEENT Symptoms (Recalled from RN notes): Yes Resp Symptoms (Recalled from RN notes): No Skin Symptoms (Recalled from RN notes): No MS Symptoms (Recalled from RN notes): No Functional Status (Recalled from RN notes): WNL History of Present Illness Provider Complaint: 62 yr old female presents for left eye watering, sensitive to light, red and painful. pt states no injury. pt states she woke up this am with her eye hurting and draining. Related Data Home Medications Medication Instructions Recorded Confirmed furosemide 20 mg tablet 20 mg PO TID Edema 10/15/17 05/22/22 diltiazem HCl 30 mg tablet 30 mg PO DAILY High blood pressure 10/01/19 05/22/22 linaclotide 72 mcg capsule 72 mcg PO DAILY . 03/15/22 05/22/22 (Linzess) pregabalin 200 mg capsule (Lyrica) 200 mg PO BID fibromyalgea 03/15/22 05/22/22 esomeprazole magnesium 20 mg 20 mg PO DAILY GERD 05/17/22 05/22/22 granules delayed release for susp Bifidobacterium animalis 6 mg (5 6 mg PO DAILY Supplement 05/22/22 05/22/22 billion cell) capsule L. acidophilus 5 mg-digestive 1 each PO DAILY Supplement 05/22/22 05/22/22 enzymes combo no.5 250 mg capsule famotidine 20 mg tablet 20 mg PO BID Reflux/Acid reflux 05/22/22 05/22/22 ygtmhdbf-sfw-tsobb acid 0.4 1 each PO DAILY supplement' 05/22/22 05/22/22 mg-lycopene 300 mcg-lutein 250 mcg tablet progesterone micronized 200 mg 200 mg PO DAILY Supplement 05/22/22 05/22/22 capsule thyroid (pork) 30 mg tablet 30 mg PO DAILY thyroid 05/22/22 05/22/22 Previous Rx's Medication Instructions Recorded erythromycin 5 mg/gram (0.5 %) eye 0.5 inch ophthalmic (eye) BID #3.5 11/03/22 ointment grams Allergies Allergy/AdvReac Type Severity Reaction Status Date / Time Sulfa (Sulfonamide Allergy Unknown I-HIVES Verified 03/15/22 10:18 Antibiotics) [SULFA (SULFONAMIDE ANTIBIOTICS)] Worker's Comp Is this a Worker's Comp case?: No [facility] Disclaimer: The information contained in this section may have been updated after the patient was seen, as this information can be updated by other users. Medical History , BAT[employer]CH[employer]IC) History of gastroesophageal reflux (GERD) Surgical History , BATTER[employer] MECH[employer]IC) History of appendectomy History of
[2022-11-03 12:00] VITALS: BP 130/78; PULSE 82; RESP 18; TEMP 36.7; O2SAT 99
== END 2022-11-03 12:04 | disposition home or self-care (01) ==
PROVIDERS: Emergency Provider Nurse Practitioner Family; PCP Internal Medicine Adolescent Medicine
DX: H57.12 Ocular pain, left eye
CPT/HCPCS: 99212; 99213; G0463

== ENCOUNTER → 2023-01-28 10:16 | Outpatient (CLI) | payer MEDICARE, BC, SELFPAY ==
--- NOTE | 2023-01-28 10:26 | MM_ITS ---
PROCEDURE INFORMATION: Exam: MG Bilateral Screening 3D Mammography Exam date and time: 01/28/2023 10:28 AM Age: 62 years old Clinical indication: Screening examination. A paternal aunt had breast cancer. TECHNIQUE: Imaging protocol: Bilateral Screening tomosynthesis and 2D mammography including computer-aided detection (CAD) when performed. COMPARISON: 1. MG MM DIG MAMM DX UNILAT RT CAD 01/12/2022 2:21 PM 2. MG MM DIG SCREENING MAMM BI W/CAD 12/14/2021 10:05 AM 3. MG MM CLIP PLACEMENT RT 12/21/2020 10:58 AM 4. 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 Mass: None. Architectural distortion: Stable diffuse bilateral architectural distortion with history of mastopexy. Calcifications: No suspicious calcifications. Asymmetric density: None. Skin thickening: None. Axillary adenopathy: None. IMPRESSION: No mammographic evidence of malignancy. Annual screening is recommended unless otherwise clinically indicated. ASSESSMENT: BI-RADS Category 2: Benign
== END ==
PROVIDERS: PCP Internal Medicine Adolescent Medicine; Visit Provider Internal Medicine Adolescent Medicine
DX: Z12.31 Encounter for screening mammogram for malignant neoplasm of breast (principal)
CPT/HCPCS: 77063; 77067

== ENCOUNTER 2024-01-31 12:43 | Outpatient (CLI) | payer MEDICARE, BC, SELFPAY ==
--- NOTE | 2024-01-31 12:47 | MM_ITS ---
PROCEDURE INFORMATION: Exam: MG Bilateral Screening 3D Mammography Exam date and time: 01/31/2024 12:54 PM Age: 63 years old Clinical indication: Screening examination TECHNIQUE: Imaging protocol: Bilateral Screening tomosynthesis and 2D mammography including computer-aided detection (CAD) when performed. COMPARISON: 1. MG MM DIG SCREENING MAMM BI W/CAD 01/28/2023 10:28 AM 2. MG MM DIG MAMM DX UNILAT RT CAD 01/12/2022 2:21 PM FINDINGS: MAMMOGRAPHY: Breast composition: There are scattered areas of fibroglandular density. Mass: None. Architectural distortion: None. Calcifications: No suspicious calcifications. Asymmetric density: None. Skin thickening: None. Axillary adenopathy: None. IMPRESSION: No mammographic evidence of malignancy. Annual screening is recommended unless otherwise clinically indicated. ASSESSMENT: BI-RADS Category 1: Negative
== END 2024-01-31 23:59 ==
LOC: RAD 12:43
PROVIDERS: PCP Internal Medicine Adolescent Medicine; Visit Provider Internal Medicine Adolescent Medicine
DX: Z12.31 Encounter for screening mammogram for malignant neoplasm of breast (principal)
CPT/HCPCS: 77063; 77067

== ENCOUNTER 2024-03-26 14:00 | Outpatient (RCR) | payer MEDICARE, BC, SELFPAY | END 2024-05-04 09:12 | disposition home or self-care (01) | LOC: PT 14:00 | PROVIDERS: Visit Provider Orthopaedic Surgery | DX: M25.522 Pain in left elbow (principal) | CPT/HCPCS: 97010; 97014; 97110; 97140; 97163; 97164; 97530; G0283 ==

== ENCOUNTER 2024-11-12 10:00 | Outpatient (RCR) | payer MEDICARE, BC, SELFPAY | END 2024-11-12 23:59 | disposition home or self-care (01) | LOC: PT 10:00 | PROVIDERS: PCP Internal Medicine Adolescent Medicine; Visit Provider Orthopaedic Surgery | DX: Z96.651 Presence of right artificial knee joint (principal) | CPT/HCPCS: 97014; 97110; 97163; G0283 ==

== ENCOUNTER 2024-11-30 10:00 | Outpatient (RCR) | payer MEDICARE, BC, SELFPAY | END 2024-11-30 23:59 | disposition home or self-care (01) | LOC: PT 10:00 | PROVIDERS: PCP Internal Medicine Adolescent Medicine; Visit Provider Orthopaedic Surgery | DX: Z96.651 Presence of right artificial knee joint (principal) | CPT/HCPCS: 97014; 97110; 97530; G0283 ==

== ENCOUNTER 2025-02-01 07:41 | Outpatient (CLI) | payer MEDICARE, BC, SELFPAY ==
--- NOTE | 2025-02-01 07:44 | MM_ITS ---
PROCEDURE INFORMATION: Exam: MG Bilateral Screening 3D Mammography Exam date and time: 02/01/2025 8:12 AM Age: 64 years old Clinical indication: Screening examination TECHNIQUE: Imaging protocol: Bilateral Screening tomosynthesis and 2D mammography including computer-aided detection (CAD) when performed. COMPARISON: 1. MG MM DIG SCREENING MAMM BI W/CAD 01/31/2024 12:54 PM 2. MG MM DIG SCREENING MAMM BI W/CAD 01/28/2023 10:28 AM FINDINGS: MAMMOGRAPHY: Breast composition: There are scattered areas of fibroglandular density. Mass: None. Architectural distortion: No unexplained distortion. Calcifications: No suspicious calcifications. Asymmetric density: None. Skin thickening: None. Axillary adenopathy: None. IMPRESSION: No mammographic evidence of malignancy. Annual screening is recommended unless otherwise clinically indicated. ASSESSMENT: BI-RADS Category 1: Negative.
== END 2025-02-01 23:59 | disposition home or self-care (01) ==
LOC: RAD 07:41
PROVIDERS: PCP Internal Medicine Adolescent Medicine; Visit Provider Internal Medicine Adolescent Medicine
DX: Z12.31 Encounter for screening mammogram for malignant neoplasm of breast (principal)
CPT/HCPCS: 77063; 77067

== ENCOUNTER 2025-05-20 12:01 | Day surgery (SDC) | payer MEDICARE, BC, SELFPAY ==
[2025-05-11 11:04] VITALS: BMI 25.8
[2025-05-20 12:59] VITALS: BP 160/90; PULSE 87; RESP 19; TEMP 36.4; O2SAT 96
--- NOTE | 2025-05-20 13:41 | EXP.HP ---
History of Present Illness *Admission Date: 05/20/25 *History of present illness: Mrs. Giraldo is a 64-year-old female who is here for surveillance/screening colonoscopy secondary to a personal history of adenomatous colon polyps. She did have a colonoscopy in 2019 (Ronaldo Morrell M.D) and had a single polyp (tubular adenoma removed). The examination is deemed medically necessary for screening/surveillance colonoscopy. The patient has been seen, interviewed and examined prior to the procedure by both myself and the anesthesia provider. [facility] Disclaimer: The information contained in this section may have been updated after the patient was seen, as this information can be updated by other users. Medical History History of gastroesophageal reflux (GERD) Surgical History Colonoscopy planned History of tubal ligation History of hysterectomy History of cholecystectomy History of appendectomy Family History Other No significant family history Social History Smoking Status: Never smoker alcohol intake: never substance use type: denies use current occupational status: retired Travel in the last 8 weeks?: None household members: spouse housing: house current occupational exposures/hazards: No caffeine: Yes Have you lived/traveled outside US in past 30 days?: No Contact w/someone who lives/traveled outside US past 30 days?: No Exposure to someone with infectious disease in past 14 days?: No Do you have a fever (greater than 100.4 F or 38 C)?: No Have you tested positive for COVID-19?: No Exposed to someone with COVID-19 in past 14 days?: No Do you have a sore throat?: No Do you have a cough?: No Do you have any weakness?: No Do you have any diarrhea?: No Are you experiencing any unusual bleeding?: No Do you have any muscle aches/pain?: No Do you have any abdominal pain?: No Are you experiencing loss of taste or smell?: No Other Medical History Have you received the Flu Vaccine for this season: Yes Have you received the Pneumonia Vaccine: No Review of Systems Review of Systems Review of systems (narrative): Negative *Cardiovascular Comments: Negative *Gastrointestinal Comments: Negative *Genitourinary Comments: Negative *Musculoskeletal Comments: Negative *Neurologic Comments: Negative Meds Home Medications and Allergies Home Medications ?Medication ?Instructions ?Recorded ?Confirmed ?Type furosemide 20 mg tablet 20 mg PO TID Edema 10/15/17 05/11/25 History diltiazem HCl 30 mg tablet 30 mg PO DAILY High blood pressure 10/01/19 05/11/25 History famotidine 20 mg tablet 20 mg PO BID Reflux/Acid reflux 05/22/22 05/11/25 History ggkmfbdy-kwc-vqzns acid 0.4 1 each PO DAILY supplement' 05/22/22 05/11/25 History mg-lycopene 300 mcg-lutein 250 mcg tablet ondansetron HCl 4 mg tablet 4 mg PO NEEDED PRN . 01/11/25 05/11/25 History pregabalin 200 mg capsule (Lyrica) 225 mg PO BID fibromyalgea 01/11/25 05/11/25 History rosuvastatin 10 mg tablet 10 mg PO DAILY 01/11/25 05/11/25 History semaglutide 0.25 mg or 0.5 mg (2 0.5 mg SQ WEEKLY 01/11/25 05/11/25 History mg/3 mL) subcutaneous pen injector (Ozempic) venlafaxine 37.5 mg tablet 37.5 mg PO DAILY 01/11/25 05/11/25 History linaclotide 72 mcg capsule 72 mcg PO DAILY . #90 caps 05/03/25 05/11/25 Rx (Linzess) buspirone 10 mg tablet 10 mg PO DAILY 05/11/25 05/11/25 History New Prescriptions to Start Prescriptions: Allergies Allergy/AdvReac Type Severity Reaction Status Date / Time Sulfa (Sulfonamide Allergy Unknown I-HIVES Verified 05/20/25 12:56 Antibiotics) (SULFA (SULFONAMIDE ANTIBIOTICS)) Exam Data for Last 24 hours Vital signs and Labs for Last 24 Hours: Temp Pulse Resp BP Pulse Ox O2 Del Method 97.5 F L 87 19 160/90 H 96 Room Air 05/20/25 12:59 05/20/25 12:59 05/20/25 12:59 05/20/25 12:59 05/20/25 12:59 05/20/25 12:59 *Routine HEENT Exam Head: Present normocephalic Eye: Present EOMI and PERRL ENT: Present mucous membranes moist *Routine Neck Exam Neck: Present supple *Routine Respiratory Exam Respiratory: Present CTA bilaterally *Routine Cardiovascular Exam Cardiovascular: Present RRR *Routine Abdominal Exam Abdominal: Present soft and normoactive bowel sounds; Absent tenderness *Routine Rectal Exam Rectal:: deferred *Routine Genitalia Exam Genitalia:: deferred *Routine Extremities Exam Extremities: Absent cyanosis, clubbing or edema *Routine Skin Exam Skin: Present warm; Absent rash *Routine Neurological Exam Neurological: Present alert and oriented X3 Assessment and Plan *Assessment and plan (1) History of adenomatous polyp of colon: Status: Acute Category: Medical Code(s): Z86.0101 - Personal history of adenomatous and serrated colon polyps Plan A/P: 1. Personal history of adenomatous colon polyp is the preprocedural diagnosis. The patient will be anesthetized/sedated using MAC sedation. The patient has been seen and examined. Cardiac and lung assessment prior to the examination is stable. Proceed with planned screening/surveillance colonoscopy.
--- NOTE | 2025-05-20 13:58 | EXP.ANES.CKL ---
[facility] Disclaimer: The information contained in this section may have been updated after the patient was seen, as this information can be updated by other users. Medical History History of gastroesophageal reflux (GERD) Surgical History Colonoscopy planned History of tubal ligation History of hysterectomy History of cholecystectomy History of appendectomy Family History Other No significant family history Social History Smoking Status: Never smoker alcohol intake: never substance use type: denies use current occupational status: retired Travel in the last 8 weeks?: None household members: spouse housing: house current occupational exposures/hazards: No caffeine: Yes Have you lived/traveled outside US in past 30 days?: No Contact w/someone who lives/traveled outside US past 30 days?: No Exposure to someone with infectious disease in past 14 days?: No Do you have a fever (greater than 100.4 F or 38 C)?: No Have you tested positive for COVID-19?: No Exposed to someone with COVID-19 in past 14 days?: No Do you have a sore throat?: No Do you have a cough?: No Do you have any weakness?: No Do you have any diarrhea?: No Are you experiencing any unusual bleeding?: No Do you have any muscle aches/pain?: No Do you have any abdominal pain?: No Are you experiencing loss of taste or smell?: No [facility] Anesthesia Checklist Patient Identification Patient Identification: Arm Band and Family Structural Data Admitted From: Home Planned Operative Procedure/s: Colonoscopy Consent for Planned Operative Procedure(s) Verified: Yes Verified Documents: Surgical Consent and History and Physical NPO Status Verified Time NPO: 00:00 Additional verifications Patient : No Anesthesia Reactions: No Hx Blood Transfusions: No Blood Transfusion Reaction: No Cephalosporin Allergy: No Airway Assessment Mallampati Score:: Class II C-Spine Mobility Assessed: Yes TMJ Mobility Assessed: Yes Dentition: Good Dentition Neurological Assessment Level of Consciousness: Awake, Alert and Appropriate Hx Seizures: No Numbness or tingling in extremities: No Anesthesia Plan Anesthesia Risk discussed: Yes ASA Class: II Anesthesia Type: MAC
--- NOTE | 2025-05-20 14:07 | HMH.PROCNOTE ---
[facility] Procedure Note Date: 05/20/25 Time: 14:25 Procedure Note:: Colonoscopy Procedure Report: Colonoscopy Endoscopist: Matt Rivas II, MD Referring physician: Toy Paredes M.D. Date of Procedure: May 20, 2025 Equipment: Olympus [id number] adult colonoscope Sedation: MAC sedation Indication: Mrs. Giraldo is a 64-year-old female who is here for follow-up screening/surveillance colonoscopy secondary to a personal history of an adenomatous colon polyp. She did have a colonoscopy and May 2020 (Ronaldo Morrell M.D.) and had a single polyp (tubular adenoma) removed. The patient reports no abdominal pain, weight loss, change in her bowel habits or rectal bleeding. She reports no family history of colon cancer. The patient does have a long history of IBS and has been on Linzess plus fiber bowel regimen (MiraLAX plus Metamucil). She also has a history of sucrase deficiency and has been on Sucraid and low sucrose diet. Procedure: Prior to the procedure, a history and physical exam was performed, and patient's medications and allergies were reviewed. The risks, benefits and alternatives of the sedation and procedure were discussed with the patient. All questions were answered and informed consent was obtained. The patient was brought to the procedure room. Patient identification and proposed procedure were verified by the physician and the nurse. The patient was placed in a left lateral decubitus position and the scope was passed under direct vision. Throughout the procedure, the patient's blood pressure, pulse, and oxygen saturations were monitored continuously. The colonoscopy was accomplished without difficulty. The patient tolerated the procedure well. Findings: On digital rectal examination there was normal rectal tone. There were no external hemorrhoids and small external tags. The colonoscope was introduced through the anal canal to the rectum and advanced to the cecum. The ileocecal valve and appendiceal orifice were identified. The scope was advanced a short distance into the ileum which appeared grossly normal. The scope was then withdrawn into the colon. The cecum, ascending and transverse colon and mucosa were grossly normal. There were extensively scattered diverticuli throughout the descending and sigmoid colon (LEFT colon). There were some pericolonic adhesions adjacent to the sigmoid colon (presumably from prior hysterectomy). The rectum itself was normal. Upon retroflexion within the rectum there were grade 1-2 internal hemorrhoids. The preparation was excellent throughout with Bingham Preparation Score of 9. The cecal time was 12 minutes. Impression: 1. Extensive left-sided diverticulosis 2. Grade 1-2 internal hemorrhoids Plan: The patient will not require surveillance colonoscopy again for 10 years by ACS guidelines. I would continue the fiber bowel regimen (combined MiraLAX plus Metamucil) and Linzess.
[2025-05-20 14:29] VITALS: BP 113/67; PULSE 83; RESP 16; TEMP 36.5; O2SAT 93
[2025-05-20 14:39] VITALS: BP 118/59; PULSE 78; RESP 16; O2SAT 94
[2025-05-20 14:49] VITALS: BP 116/75; PULSE 79; RESP 16; O2SAT 98
[2025-05-20 14:59] VITALS: BP 121/74; PULSE 80; RESP 18; O2SAT 98
== END 2025-05-20 15:03 | disposition home or self-care (01) ==
PROVIDERS: PCP Internal Medicine Adolescent Medicine; Visit Provider Internal Medicine Gastroenterology
PROC: 0DJD8ZZ Inspection of Lower Intestinal Tract, Via Natural or Artificial Opening Endoscopic (ICD-10-PCS; CPT 45378; principal; 2025-05-20 13:30)
DX: Z12.11 Encounter for screening for malignant neoplasm of colon (principal); K57.30 Diverticulosis of large intestine without perforation or abscess without bleeding; K64.0 First degree hemorrhoids; K64.1 Second degree hemorrhoids; Z86.0101 Personal history of adenomatous and serrated colon polyps; K21.9 Gastro-esophageal reflux disease without esophagitis; Z88.2 Allergy status to sulfonamides; Z79.84 Long term (current) use of oral hypoglycemic drugs; Z79.899 Other long term (current) drug therapy
CPT/HCPCS: 45378; J2003; J2704

== ENCOUNTER 2025-08-02 15:53 | Inpatient (IN) | payer MEDICARE, BC, SELFPAY ==
--- OUTSIDE RECORDS SUMMARY | 2024-02-27 07:45 | XMS_ITS ---
Author Organization [facility] Address [address] [place] [address] Care Team Providers Care Income Tax Preparer Name Role Phone Toy Paredes Primary Care Provider [phone] Encounters Encounter Location Date Provider Diagnosis [place] [address] [address] 02/27/2024 Toy Paredes Plan Of Treatment Next Appt Details Provider Name:Toy Paredes, 08/03/2025 10:45:00 AM, [address] [place] [address], [phone], Provider Name:Toy Paredes, 08/10/2025 10:15:00 AM, [address] [place] [address], [phone], Progress Notes * My GIRALDOhDOB: (65 yo F)Acc No.[id number]:02/27/2024 Progress Notes Patient: Naga Ruthy MEDINA Provider: Jo Ann Paredes MD :1960 A ge:63 Y S ex:Female Date:02/27/2024 [address] [id number] Subjective: * Chief Complaints: * * Medical History: Objective: * Vitals: Assessment: Plan: * Treatment: * * Electronic signature of Orlando Paredes MD FAAP on 08/02/2025 at 04:12 PM EDT Sign off status: Pending * Provider: Jo Ann Paredes MD Date: 0 02/27/2024 Generated for Araceli qiu/Debbie/Ayaz on: 1 04:12 PM EDT
--- OUTSIDE RECORDS SUMMARY | 2025-01-16 17:30 | XMS_ITS ---
Author Organization 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 Name Role Phone Toy Paredes Primary Care Provider Migration, Provider Unavailable Unavailable Allergies Allergen (clinical drug ingredient) Drug/Non Drug Allergy documented on EMR Reaction Allergy Type Onset Date Status SULFA (uncoded) Unknown Allergy Acti ve [facility] Conversion Encounter Medications Medication SIG (Take, Route, Frequency, Duration) Notes Start Date End Date Status Venlafaxine HCl 37.5 MG 1 tab(s) orally 2 times a day; Duration: 30 days Active OZEMPIC 2 MG/3 ML (0.25 MG OR 0.5 MG DOSE) 0.5 MG SUBCUTANEOUSLY ONCE A WEEK; Duration: 30 DAYS *Please review for potential replacement for e-prescription and drug interaction check* Active Furosemide 20 MG 3 tabs orally daily; Duration: 90 days Active ADACEL (TDAP) 5 UNITS-2 UNITS-15.5 MCG/0.5 ML 0.5 ML INTRAMUSCULARLY ONCE; Duration: 1 DAYS *Please review for potential replacement for e-prescription and drug interaction check* 12/22/2024 Active Pregabalin 225 MG 1 cap(s) orally 2 times a day; Duration: 30 days 12/22/2024 Active Rosuvastatin Calcium 10 MG 1 tab(s) orally once a day; Duration: 90 days Active Diclofenac Sodium 75 MG 1 tab(s) orally BID as needed for arthritis pain; Duration: 30 day(s) 06/15/2020 Active Famotidine 20 MG 1 tab(s) orally 2 times a day; Duration: 30 days 04/05/2020 Active dilTIAZem HCl 30 MG 1 tab(s) orally ever y 12 hours; Duration: 90 days Active Fluticasone Propionate 50 MCG/ACT 1 spray(s) intranasally once a day; Duration: 90 days Active busPIRone HCl 10 MG 1 tab(s) orally once daily Active BEANO *Please review for potential replacement for e-prescription and drug interaction check* Active Progesterone 200 MG 1 cap(s) orally once a day; Duration: 10 day(s) Active Linzess 72 MCG 1 cap(s) orally once a day; Duration: 30 day(s) Active MiraLax - DIRECTED ORALLY TWICE DAILY *Please review and pick correct strength-formulat ion from GoMore options. If intended option is not shown, discontinue and re-order from Quick Search* Active Metamucil Smooth Texture 58.6 % as directed orally once a day; Duration: 7 day(s) Active Sucralfate 1 GM/10ML 10 mL orally 4 times a day (before meals and at bedtime) Active Acyclovir 400 MG 1 tab(s) orally 2 times a day Active Encounters Encounter Location Date Provider Diagnosis [facility] [address] [facility] [address] [place] [address] 01/16/2025 Provider Migration Fibromyalgia M79.7 and Encounter for immunization Z23 Assessments Encounter Date Diagnosis (ICD Code) Assessment Notes Treatment Notes Treatment Clinical Notes Section Notes 01/16/2025 Fibromyalgia (ICD-10 - M79.7) 01/16/2025 Encounter for immunization (ICD-10 - Z23) Plan Of Treatment Medication Medication Name Sig Start Date Stop Date Notes ADACEL (TDAP) 5 UNITS-2 UNITS-15.5 MCG/0.5 ML 0.5 ML INTRAMUSCULARLY ONCE; Duration: 1 DAYS 12/22/2024 *Please review fo r potential replacement for e-prescription and drug interaction check* Pregabalin 225 MG 1 cap(s) orally 2 ti mes a day; Duration: 30 days 12/22/2024 Next Appt Details Provider Name:Toy Paredes, 08/10/2025 10:15:00 AM, [address] [facility], [place], [address], Progress Notes * My GIRALDOhDOB: (65 yo F)Acc No.[id number]:01/16/2025 Patient: Ruthy DOMINGUEZ Provider: Marbin baca Migration :1960 A ge:64 Y S ex:Female Date:01/16/2025 Address:[address] [place] [address], [place], [id number] Pcp:Toy Paredes Subjective: * Chief Complaints: * 1 . [facility] Conversion Encounter. * Medical History: * Medications: T aking Acyclovir 400 MG Tablet 1 tab(s) orally 2 times a day , Taking Sucralfate 1 GM/10ML Suspension 10 mL orally 4 times a day (before meals and at bedtime) , Taking Metamucil Smooth Texture 58.6 % Powder as directed orally once a day , Taking BEANO , Notes to Pharmacist: *Please review for potential replacement for e-prescription and drug interaction check*, Taking busPIRone HCl 10 MG Tablet 1 tab(s) orally once daily , Taking MiraLax - POWDER FOR RECONSTITUTION DIRECTED ORALLY TWICE DAILY , Notes to Pharmacist: *Please review and pick correct strength-formulation from Medispan options. If intended option is not shown, discontinue and re-order from Quick Search*, Taking Linzess 72 MCG Capsule 1 cap(s) orally once a day , Taking Progesterone 200 MG Capsule 1 cap(s) orally once a day , Taking Famotidine 20 MG Tablet 1 tab(s) orally 2 times a day , Taking Diclofenac Sodium 75 MG Tablet Delayed Release 1 tab(s) orally BID as needed for arthritis pain , Taking Fluticasone Propionate 50 MCG/ACT Suspension 1 spray(s) intranasally once a day , Taking dilTIAZem HCl 30 MG Tablet 1 tab(s) orally every 12 hours , Taking Rosuvastatin Calcium 10 MG Tablet 1 tab(s) orally once a day , Taking Venlafaxine HCl 37.5 MG Tablet 1 tab(s) orally 2 times a day , Taking Furosemide 20 MG Tablet 3 tabs orally daily , Taking OZEMPIC 2 MG/3 ML (0.25 MG OR 0.5 MG DOSE) SOLUTION 0.5 MG SUBCUTANEOUSLY ONCE A WEEK , Notes to Pharmacist: *Please review for potential replacement for e-prescription and drug interaction check* * Allergies: S ULFA. Objective: * Vitals: Assessment: * Assessment: 1. F ibromyalgia - M79.7 2 . E ncounter for immunization - Z23 ? Plan: * Treatment: 2. E ncounter for immunization Start ADACEL (TDAP) SUSPENSION, 5 UNITS-2 UNITS-15.5 MCG/0.5 ML, 0.5 ML, INTRAMUSCULARLY, ONCE, 1 DAYS, 1, Refills 0, Notes to Pharmacist: *Please review for potential replacement for e-prescription and drug interaction check*. * * Electronic signature of Matias macdonald Migration on 08/03/2025 at 03:25 PM EDT Sign off status: Pending * Provider: Marbin baca Migration Date: 0 01/16/2025 Generated for Araceli qiu/Debbie/Elieitting on: 1 03:25 PM EDT
--- OUTSIDE RECORDS SUMMARY | 2025-01-16 17:30 | XMS_ITS ---
Author Organization [facility] Address [address] [place] [address] Care Team Providers Care Collector Of Aquarium Specimens Name Role Phone Toy Paredes Primary Care Provider Migration, Provider Unavailable Unavailable Allergies Allergen (clinical drug ingredient) Drug/Non Drug Allergy documented on EMR Reaction Allergy Type Onset Date Status SULFA (uncoded) Unknown Allergy Acti ve [facility] Conversion Encounter Medications Medication SIG (Take, Route, [...] review and pick correct strength-formulat ion from Encore Alert options. If intended option is not shown, discontinue and re-order from Quick Search* Active Metamucil Smooth Texture 58.6 % as directed orally once a day; Duration: 7 day(s) Active Sucralfate 1 GM/10ML 10 mL orally 4 times a day (before meals and at bedtime) Active Acyclovir 400 MG 1 tab(s) orally 2 times a day Active Encounters Encounter Location Date Provider Diagnosis [facility] [address] [facility] [address] [place] [address] 01/16/2025 Provider Migration Fibromyalgia M79.7 and Encounter [...] 12/22/2024 Next Appt Details Provider Name:Toy Paredes, 08/03/2025 10:45:00 AM, [address] [address], [place], [address], Provider Name:Toy Paredes, 08/10/2025 10:15:00 AM, [address] [address], [place], [address], Progress Notes * My GIRALDOhDOB: (65 yo F)Acc No.[id number]:01/16/2025 Patient: Ruthy DOMINGUEZ Provider: Marbin Lyon :1960 A ge:64 Y S ex:Female Date:01/16/2025 Address:[address] [place] [address], [id number] Pcp:Toy Paredes Subjective: * Chief Complaints: * [facility] . [facility]. * Medical History: * Medications: [...] interaction check*. * * Electronic signature of Prov ider Migration on 08/02/2025 at 04:12 PM EDT Sign off status: Pending * Provider: Marbin baca Migration Date: 0 01/16/2025 Generated for Araceli qiu/Debbie/Ayaz on: 1 04:12 PM EDT
--- OUTSIDE RECORDS SUMMARY | 2025-06-29 06:15 | XMS_ITS ---
Author Organization [facility]AFUL Address [address] [place] [address] Care Team Providers Care Foreign Correspondent Name Role Phone Toy Paredes Primary Care Provider Allergies Allergen (clinical drug ingredient) Drug/Non Drug Allergy documented on EMR Reaction Allergy Type Onset Date Status SULFA (uncoded) Unknown Allergy Acti ve Results Component Value Reference Range Notes Microalbumin (In-House) Reviewed date:06/29/2025 10:51:03 AM Interpretation:Abnormal Performing Lab: Notes/Report: Abnormal ALB 80 CRE 50 A:C 30-300 THYROID PANEL WITH TSH (7444 ) Reviewed date:07/01/2025 10:37:45 AM Interpretation: Performing Lab:STEVEN, Xencor-TrustID [id number] Cirrus InsightteKen Cadet [id number] Marty John Notes/Report: NON-FASTING; NON-FASTING; NON-FASTING; NON-FASTING; NON-FAST FASTING:YES FASTING: YES T3 UPTAKE 29 22-35 % T4 (THYROXINE), TOTAL 5.3 5.1-11.9 mcg/dL FREE T4 INDEX (T7) 1.5 1.4-3.8 TSH 1.46 0.40-4.50 mIU/L LIPID PANEL, STANDARD (7600) Reviewed date:07/01/2025 10:32:50 AM Interpretation: Performing Lab:STEVEN Mozenda [id number] Mitt[address] [facility] [id number] Marty John Notes/Report: NON-FASTING; NON-FASTING; NON-FASTING; NON-FASTING; NON-FAST FASTING:YES FASTING: YES CHOLESTEROL, TOTAL 126 <200 mg/dL HDL CHOLESTEROL 60 > OR = 50 mg/dL TRIGLYCERIDES 211 <150 mg/dL If a non-fasting specimen was collected, consider repeat triglyceride testing on a fasting specimen if clinically indicated. Rajani et al. J. of Clin. Lipidol. 2015;9:129-169. LDL-CHOLESTEROL 38 Reference range: <100 Desirable range <100 mg/dL for primary prevention; <70 mg/dL for patients with CHD or diabetic patients with > or = 2 CHD risk factors. LDL-C is now calculated using the Abad-Novak calculation, which is a validated novel method providing better accuracy than the Friedewald equation in the estimation of LDL-C. Abad ANNA et al. NATALIA. 2013;310(19): 1999-8707 (http://education.[employer]/faq/FDG425) CHOL/HDLC RATIO 2.1 <5.0 (calc) NON HDL CHOLESTEROL 66 <130 mg/dL (calc) For patients with diabetes plus 1 major ASCVD risk factor, treating to a non-HDL-C goal of <100 mg/dL (LDL-C of <70 mg/dL) is considered a therapeutic option. COMPREHENSIVE METABOLIC ALYSE Borges (40573) Reviewed date:07/01/2025 10:32:56 AM Interpretation: Performing Lab:CB, Yuanfen~[facility] [id number] [facility], [facility] CenterGkvmEM[address] Marty John Notes/Report: NON-FASTING; NON-FASTING; NON-FASTING; NON-FASTING; NON-FAST FASTING:YES FASTING: YES GLUCOSE 93 65-99 mg/dL Fasting reference interval UREA NITROGEN (BUN) 9 7-25 mg/dL CREATININE 0.69 0.50-1.05 mg/dL EGFR 96 > OR = 60 mL/min/1.73m2 BUN/CREATININE RATIO SEE NOTE: 6-22 (calc) Not Reported: BUN and Creatinine are within reference range. SODIUM 138 135-146 mmol/L POTASSIUM 4.0 3.5-5.3 mmol/L CHLORIDE 99 98-110 mmol/L CARBON DIOXIDE 26 20-32 mmol/L CALCIUM 9.3 8.6-10.4 mg/dL PROTEIN, TOTAL 7.2 6.1-8.1 g/dL ALBUMIN 4.3 3.6-5.1 g/dL GLOBULIN 2.9 1.9-3.7 g/dL (calc) ALBUMIN/GLOBULIN RATIO 1.5 1.0-2.5 (calc) BILIRUBIN, TOTAL 0.4 0.2-1.2 mg/dL ALKALINE PHOSPHATASE 81 37-153 U/L AST 22 10-35 U/L ALT 24 6-29 U/L CBC (INCLUDES DIFF/PLT) (639 9) Reviewed date:07/01/2025 10:32:43 AM Interpretation: Performing Lab:STEVEN Xencor-Ken Salazare1355 [facility] UnitKen [id number] Marty John Notes/Report: NON-FASTING; NON-FASTING; NON-FASTING; NON-FASTING; NON-FAST FASTING:YES FASTING: YES WHITE BLOOD CELL COUNT 6.6 3.8-10.8 Thousand/ uL RED BLOOD CELL COUNT 4.66 3.80-5.10 Million/uL HEMOGLOBIN 14.9 11.7-15.5 g/dL HEMATOCRIT 45.4 35.0-45.0 % MCV 97.4 80.0-100.0 fL MCH 32.0 27.0-33.0 pg MCHC 32.8 32.0-36.0 g/dL For adults, a slight decrease in the calculated MCHC value (in the range of 30 to 32 g/dL) is most likely not clinically significant; however, it should be interpreted with caution in correlation with other red cell parameters and the patient's clinical condition. RDW 13.8 11.0-15.0 % PLATELET COUNT 282 140-400 Thousand/uL MPV 9.3 7.5-12.5 fL ABSOLUTE NEUTROPHILS 3584 0245-8100 cells/uL ABSOLUTE LYMPHOCYTES 2145 850-3900 cells/uL ABSOLUTE MONOCYTES 673 200-950 cells/uL ABSOLUTE EOSINOPHILS 139 15-500 cells/uL ABSOLUTE BASOPHILS 59 0-200 cells/uL NEUTROPHILS 54.3 LYMPHOCYTES 32.5 MONOCYTES 10.2 EOSINOPHILS 2.1 BASOPHILS 0.9 HEMOGLOBIN A1c (496) Reviewed date:07/01/2025 10:32:26 AM Interpretation: Performing Lab:STEVEN Xencor-TrustID [id number] [facility] [employer]ighttel [facility], [facility] [id number] Marty John Notes/Report: NON-FASTING; NON-FASTING; NON-FASTING; NON-FASTING; NON-FAST FASTING:YES FASTING: YES HEMOGLOBIN A1c 5.9 <5.7 % For someone without known diabetes, a hemoglobin A1c value between 5.7% and 6.4% is consistent with prediabetes and should be confirmed with a follow-up test. For someone with known diabetes, a value <7% indicates that their diabetes is well controlled. A1c targets should be individualized based on duration of diabetes, age, comorbid conditions, and other considerations. This assay result is consistent with an increased risk of diabetes. Currently, no consensus exists regarding use of hemoglobin A1c for diagnosis of diabetes for children. VITAMIN B12/FOLATE, SERUM GILMER SCHAEFER (7065) Reviewed date:07/01/2025 10:32:37 AM Interpretation: Performing Lab:STEVEN, Xencor-TrustID [id number] [facility] [employer], [facility] [id number] Marty John Notes/Report: NON-FASTING; NON-FASTING; NON-FASTING; NON-FASTING; NON-FAST FASTING:YES FASTING: YES VITAMIN B12 259 496-8975 pg/mL Please Note: Although the reference range for vitamin B12 is 200-1100 pg/mL, it has been reported that between 5 and 10% of patients with values between 200 and 400 pg/mL may experience neuropsychiatric and hematologic abnormalities due to occult B12 deficiency; less than 1% of patients with values above 400 pg/mL will have symptoms. FOLATE, SERUM >24.0 Reference Range Low: <3.4 Borderline: 3.4-5.4 Normal: >5.4 REASON FOR VISIT 3 month ck, sinus pressure , cough , yellowish mucus since Saturday Medications Medication SIG (Take, Route, Frequency, Duration) Notes Start Date End Date Status Pregabalin 225 MG 1 cap(s) orally 2 times a day; Duration: 30 days 03/30/2025 Active Losartan Potassium 25 MG 1 tablet Orally Once a day; Duration: 90 days 06/29/2025 Active Rosuvastatin Calcium 10 MG Take 1 tablet by mouth once daily; Duration: 90 Active Venlafaxine HCl 37.5 MG Take 1 tablet by mouth twice daily for 30 days; Duration: 30 days Active Ozempic (0.25 or 0.5 MG/DOSE) 2 MG/3ML INJECT 0.5MG SUBCUTANEOUSLY ONCE A WEEK; Duration: 28 Active Diclofenac Sodium 75 MG 1 tab(s) orally BID as needed for arthritis pain; Duration: 30 day(s) 06/15/2020 Active dilTIAZem HCl 30 MG 1 tab(s) orally ever y 12 hours; Duration: 90 days Active Fluticasone Propionate 50 MCG/ACT 1 spray(s) intranasally once a day; Duration: 90 days Active Furosemide 20 MG 3 tabs orally daily; Duration: 90 days Active Zithromax Z-Adalid 250 MG 2 tablets on the first day, then 1 tablet daily for 4 days orally once a day; Duration: 5 days 06/29/2025 Active Famotidine 20 MG 1 tab(s) orally 2 times a day; Duration: 30 days 04/05/2020 Active MiraLax - DIRECTED ORALLY TWICE DAILY *Please review and pick correct strength-formulati on from [employer] Software options. If intended option is not shown, discontinue and re-order from Quick Search* Active busPIRone HCl 10 MG 1 tab(s) orally once daily Active Progesterone 200 MG 1 cap(s) orally once a day; Duration: 10 day(s) Active Linzess 72 MCG 1 cap(s) orally once a day; Duration: 30 day(s) Active Acyclovir 400 MG 1 tab(s) orally 2 times a day Active Metamucil Smooth Texture 58.6 % as directed orally once a day; Duration: 7 day(s) Active Sucralfate 1 GM/10ML 10 mL orally 4 times a day (before meals and at bedtime) Active BEANO *Please review f or potential replacement for e-prescription and drug interaction check* Active Social History Tobacco Use: Social History Observation Description Date Details (start date - stop date) Never Smoker NA - NA Smoking: Question Answer Notes Are you a: nonsmoker Additional Findings: Tobacco Non-User Current no n-smoker Section Notes: Lives with spouse. Vital Signs Temperature 98 degrees Fahrenheit 06/29/2025 Blood pressure systolic 112 mm Hg 06/29/20 25 Blood pressure diastolic 78 mm Hg 025 Heart Rate 78 /min 06/29/2025 Height 65 in 06/29/2025 Weight 170 lbs 06/29/2025 BMI 28.29 kg/m2 06/29/2025 Encounters Encounter Location Date Provider Diagnosis [facility] [address] [address] 06/29/2025 Toy Paredes Acute bronchitis, unspecified organism J20.9 ; Type 2 diabetes mellitus with other specified complication E11.69 ; Hyperlipidemia, unspecified E78.5 ; Acquired hypothyroidism E03.9 and Vitamin B12 deficiency E53.8 Assessments Encounter Date Diagnosis (ICD Code) Assessment Notes Treatment Notes Treatment Clinical Notes Section Notes 06/29/2025 Acute bronchitis, unspecified organism (ICD-10 - J20.9) Discussed the etiology and expected course of bronchitis. Discussed the rationale for antibiotics and steroid use and the importance of completeing the prescription as prescribed. Discussed supportive care. Discussed the signs and symptoms of worsening infection/respir atory distress that may indicate need for reassement in clinic/ED. 06/29/2025 Type 2 diabetes mellitus with other specified complication (ICD-10 - E11.69) Microalbumin testing shows mild proteinuria. Start low-dose losartan. Her blood pressure is 112 systolic, discussed that if she felt weak would drop down to 1/2 tablet. Follow-up in 6 weeks to reevaluate blood pressure, flu shot, excetra. Check A1c today. All reviewed personally 06/29/2025 Hyperlipidemia, unspecified (ICD-10 - E78.5) 06/29/2025 Acquired hypothyroidism (ICD-10 - E03.9) Check labs to monitor her therapy 06/29/2025 Vitamin B12 deficiency (ICD-10 - E53.8) Plan Of Treatment Medication Medication Name Sig Start Date Stop Date Notes Losartan Potassium 25 MG 1 tablet Orally Once a day; Duration: 90 days 06/29/2025 Zithromax Z-Adalid 250 MG 2 tablets on the first day, then 1 tablet daily for 4 days orally once a day; Duration: 5 days 06/29/2025 Treatment Notes Assessment Notes Acute bronchitis, unspecified organism D iscussed the etiology and expected course of bronchitis. Discussed the rationale for antibiotics and steroid use and the importance of completeing the prescription as prescribed. Discussed supportive care. Discussed the signs and symptoms of worsening infection/respiratory distress that may indicate need for reassement in clinic/ED. Type 2 diabetes mellitus wit h other specified complication Microalbumin testing shows mild proteinuria. Start low-dose losartan. Her blood pressure is 112 systolic, discussed that if she felt weak would drop down to 1/2 tablet. Follow-up in 6 weeks to reevaluate blood pressure, flu shot, excetra. Check A1c today. All reviewed personally Acquired hypothyroidism Check labs to mo nitor her therapy Next Appt Details Follow Up: 6 Weeks, Reason: Provider Name:Toy Paredes, 08/10/2025 10:15:00 AM, [address] [place] [address], [id number], Progress Notes * SAMANTHA, DeborahDOB: (65 yo F)Acc No.[id number]:06/29/2025 Progress Notes Patient: Ruthy DOMINGUEZ Provider: Jo Ann Paredes MD :[id number] A ge:65 Y S ex:Female Date:06/29/2025 Address:[address] [place] [address], [id number] Subjective: * Chief Complaints: * 1 . 3 month ck. 2. sinus pressure , cough , yellowish mucus since Saturday. * HPI: g en: Patient here to follow-up for multiple medical problems. Reports that her fibromyalgia is under good control with low-dose pregabalin. No dizziness, no falls, recently returned from a cruise with her , no issues with functional status. Does have a cough productive of yellow sputum and some low-grade temperatures over the past 4 to 5 days. Her 's had a similar illness but he improved. He is due for labs. Otherwise no complaints. * Medical History: H ormone replacement therapy, Esophageal reflux, Depressive disorder, HLD, Arthritis, Trigeminal neuralgia, Goiter, Neuropathy, Depressive disorder NOS, Colonoscopy 2008: no polyps. Repeat in 2018. Repeated in 2019 with complex polyps - no polyps in 05/2022, normal bone density via DEXA scan 2016 and normal DEXA scan October 2021 - Diagnosis of osteoporosis based on compression fracture but osteopenia on DEXA scan 04/07, Breast US and mamm with suspicious lesions in 2020-biopsy was negative for carcinoma -repeat ultrasound in and December - And a normal mammogram again January 2023, Raynaud's syndrome, Normal Mammogram 02/05. * Surgical History: r ight hand , right elbow , right shoulder , right knee , tummy tuck/ hernia repair x 3 06/2015, Lt knee replacement , LT arm , RT knee replacement 10/21/2024, colonscopy 05/2025. * Hospitalization/Major Diagno stic Procedure: lyle cheek [facility]- knee surgery 10/21-06/2025. * Family History: F ather: , lupus. M other: , diagnosed with Heart Disease, Hypertension, Diabetes. P aternal Grand Father: . P aternal Grand Mother: . M aternal Grand Father: . M aternal Grand Mother: . P aternal uncle: alive. P aternal aunt: alive. M aternal aunt: alive. S iblings: , [place], diagnosed with Diabetes, Hypertension, Heart Disease. C gloriaen: alive, diagnosed with Hypertension. 1 brother(s) . 1 son(s) - healthy. . Cousin dx with breast cancer. * Social History: S moking A re you a: n onsmoker, A dditional Findings: Tobacco Non-User C urrent non-smoker. R ecreational drug use: no, Walking 5-10K steps daily. Exercise: yes. Home smoke detector use: yes. Caffeine: no. Living Will: No. Alcohol: no, Type: , Frequency: ,Years: , Determination:. Sexually active: yes. Travel outside [place]: no. Occupation: retired. Lives with spouse. * Medications: T aking Acyclovir 400 MG [...] tab(s) orally every 12 hours , Taking Furosemide 20 MG Tablet 3 tabs orally daily , Taking Pregabalin 225 MG Capsule 1 cap(s) orally 2 times a day , Taking Rosuvastatin Calcium 10 MG Tablet Take 1 tablet by mouth once daily , Taking Ozempic (0.25 or 0.5 MG/DOSE) 2 MG/3ML Solution Pen-injector INJECT 0.5MG SUBCUTANEOUSLY ONCE A WEEK , Taking Venlafaxine HCl 37.5 MG Tablet Take 1 tablet by mouth twice daily for 30 days , Medication List reviewed and reconciled with the patient * Allergies: S ULFA. Objective: * Vitals: N urse: dw, Pain: 6, Temp: 98, RR: 20, HR: 78, BP: 112/78, Ht: 65, Wt: 170, BMI:28.29. * Examination: G eneral Examination: General P leasant and Cooperative, NAD on RA,. Heart: R egular Rate and Rhythm, no murmur, rubs or gallops. Lungs: S cattered Rhonchi that clear with coughing. No wheezes, crackles, or focal sounds,. Abdomen: S oft, NTND, BSNA, No organomegaly or peritoneal signs.. Assessment: * Assessment: 1. A cute bronchitis, unspecified organism - J20.9 (Primary) 2 . T ype 2 diabetes mellitus with other specified complication - E11.69 3 . H yperlipidemia, unspecified - E78.5 4 . A cquired hypothyroidism - E03.9 5 . Vitamin B12 deficiency - E53.8 Plan: * Treatment: 2. T ype 2 diabetes mellitus with other specified complication Start Losartan Potassium Tablet, 25 MG, 1 tablet, Orally, Once a day, 90 days, 90 Tablet, Refills 1. L AB: COMPREHENSIVE METABOLIC PANEL (41537) Value Reference Range G LUCOSE 93 65-99 - mg/dL * U KAMRAN NITROGEN (BUN) 9 7-25 - mg/dL * C REATININE 0.69 0.50-1.05 - mg/dL * B UN/CREATININE RATIO SEE NOTE: 04-04 - (calc) * S ODIUM 138 135-146 - mmol/L * P OTASSIUM 4.0 3.5-5.3 - mmol/L * C HLORIDE 99 98-110 - mmol/L * C ARBON DIOXIDE 26 20-32 - mmol/L * C ALCIUM 9.3 8.6-10.4 - mg/dL * P ROTEIN, TOTAL 7.2 6.1-8.1 - g/dL * A LBUMIN 4.3 3.6-5.1 - g/dL * G LOBULIN 2.9 1.9-3.7 - g/dL (calc ) * A LBUMIN/GLOBULIN RATIO 1.5 1.0-2.5 - (calc) * B ILIRUBIN, TOTAL 0.4 0.2-1.2 - mg/dL * A LKALINE PHOSPHATASE 81 37-153 - U/L * A ST 22 10-35 - U/L * A LT 24 6-29 - U/L * E GFR 96 > OR = 60 - mL/min/1 .73m2 * This lab was reviewed by Danii Romero on 07/01/2025 at 10:32 AM EDT ?LAB: HEMOGLOBIN A1c (496)* Value Reference Range H EMOGLOBIN A1c 5.9 H <5.7 - % * This lab was reviewed by Danii Romero on 07/01/2025 at 10:32 AM EDT ?LAB: Microalbumin (In-House) (Collection Date & Time - 06/29/2025)?Abnormal * Value Reference Range A LB 80 * C RE 50 * A :C 30-300 Notes: Microalbumin testing shows mild proteinuria. Start low-dose losartan. Her blood pressure is 112 systolic, discussed that if she felt weak would drop down to 1/2 tablet. Follow-up in 6 weeks to reevaluate blood pressure, flu shot, excetra. Check A1c today. All reviewed personally??3.?Hyperlipidemia, unspecified?LAB: LIPID PANEL, STANDARD (1120)* Value Reference Range T RIGLYCERIDES 211 H <150 - mg/dL * C HOLESTEROL, TOTAL 126 <200 - mg/dL * H DL CHOLESTEROL 60 > OR = 50 - mg/dL * L DL-CHOLESTEROL 38 - mg/dL (calc) * C HOL/HDLC RATIO 2.1 <5.0 - (calc) * N ON HDL CHOLESTEROL 66 <130 - mg/dL (calc) * This lab was reviewed by Danii Romero on 07/01/2025 at 10:32 AM EDT 4.?Acquired hypothyroidism?LAB: THYROID PANEL WITH TSH (7444)* Value Reference Range T 3 UPTAKE 29 22-35 - % * T 4 (THYROXINE), TOTAL 5.3 5.1-11.9 - mcg/dL * F REE T4 INDEX (T7) 1.5 1.4-3.8 - * T SH 1.46 0.40-4.50 - mIU/L * Helena Romero 07/01/2025 10:37:34 AM EDT > patient informedThis lab was reviewed by Helena Romero on 07/01/2025 at 10:37 AM EDT ?LAB: CBC (INCLUDES DIFF/PLT) (2960)* Value Reference Range W STELLA BLOOD CELL COUNT 6.6 3.8-10.8 - Thousan d/uL * R ED BLOOD CELL COUNT 4.66 3.80-5.10 - Million/ uL * H EMOGLOBIN 14.9 11.7-15.5 - g/dL * H EMATOCRIT 45.4 H 35.0-45.0 - % * M CV 97.4 80.0-100.0 - fL * M CH 32.0 27.0-33.0 - pg * M CHC 32.8 32.0-36.0 - g/dL * R DW 13.8 11.0-15.0 - % * P LATELET COUNT 282 140-400 - Thousand/u L * N EUTROPHILS 54.3 - % * A BSOLUTE NEUTROPHILS 3584 6556-4462 - cells/uL * L YMPHOCYTES 32.5 - % * A BSOLUTE LYMPHOCYTES 2145 850-3900 - cells/uL * M ONOCYTES 10.2 - % * A BSOLUTE MONOCYTES 673 200-950 - cells/uL * E OSINOPHILS 2.1 - % * A BSOLUTE EOSINOPHILS 139 15-500 - cells/uL * B ASOPHILS 0.9 - % * A BSOLUTE BASOPHILS 59 0-200 - cells/uL * M PV 9.3 7.5-12.5 - fL * This lab was reviewed by Danii Romero on 07/01/2025 at 10:32 AM EDT ?LAB: VITAMIN B12/FOLATE, SERUM PANEL (7065)* Value Reference Range F OLATE, SERUM >24.0 - ng/mL * V ITAMIN B12 074 947-3712 - pg/mL * This lab was reviewed by Danii Romero on 07/01/2025 at 10:32 AM EDT Notes: Check labs to monitor her therapy??5.?Vitamin B12 deficiency?LAB: THYROID PANEL WITH TSH (7444)* Value Reference Range T 3 UPTAKE 29 22-35 - % * T 4 (THYROXINE), TOTAL 5.3 5.1-11.9 - mcg/dL * F REE T4 INDEX (T7) 1.5 1.4-3.8 - * T SH 1.46 0.40-4.50 - mIU/L * Helena Romero 07/01/2025 10:37:34 AM EDT > patient informedThis lab was reviewed by Helena Romero on 07/01/2025 at 10:37 AM EDT ?LAB: CBC (INCLUDES DIFF/PLT) (3203)* Value Reference Range W STELLA BLOOD CELL COUNT 6.6 3.8-10.8 - Thousan d/uL * R ED BLOOD CELL COUNT 4.66 3.80-5.10 - Million/ uL * H EMOGLOBIN 14.9 11.7-15.5 - g/dL * H EMATOCRIT 45.4 H 35.0-45.0 - % * M CV 97.4 80.0-100.0 - fL * M CH 32.0 27.0-33.0 - pg * M CHC 32.8 32.0-36.0 - g/dL * R DW 13.8 11.0-15.0 - % * P LATELET COUNT 282 140-400 - Thousand/u L * N EUTROPHILS 54.3 - % * A BSOLUTE NEUTROPHILS 3584 2285-1937 - cells/uL * L YMPHOCYTES 32.5 - % * A BSOLUTE LYMPHOCYTES 2145 850-3900 - cells/uL * M ONOCYTES 10.2 - % * A BSOLUTE MONOCYTES 673 200-950 - cells/uL * E OSINOPHILS 2.1 - % * A BSOLUTE EOSINOPHILS 139 15-500 - cells/uL * B ASOPHILS 0.9 - % * A BSOLUTE BASOPHILS 59 0-200 - cells/uL * M PV 9.3 7.5-12.5 - fL * This lab was reviewed by Danii Romero on 07/01/2025 at 10:32 AM EDT ?LAB: VITAMIN B12/FOLATE, SERUM PANEL (7065)* Value Reference Range F OLATE, SERUM >24.0 - ng/mL * V ITAMIN B12 279 201-3037 - pg/mL * This lab was reviewed by Danii Romero on 07/01/2025 at 10:32 AM EDT * Procedure Codes: 8 2044 MICROALBUMIN, URINE, Modifiers: QW , G2211 Complex e/m visit add on * Follow Up: 6 Weeks * * Sign off status: Completed true * Provider: Jo Ann Paredes MD Date: 0 06/29/2025 Generated for Gildardoi ng/Josselineg/eTransmitting on: 1 03:26 PM EDT History and Physical Notes * HPI (History of Present Illness) Category Sub-Category Detail Notes Category Not es gen Patient here to follow-up for multiple medical problems. Reports that her fibromyalgia is under good control with low-dose pregabalin. No dizziness, no falls, recently returned from a cruise with her , no issues with functional status. Does have a cough productive of yellow sputum and some low-grade temperatures over the past 4 to 5 days. Her 's had a similar illness but he improved. He is due for labs. Otherwise no complaints. Examination Category Sub-Category Detail Notes Category Not es General Examination Heart: Regular Rate and Rhythm, no murmur, rubs or gallops Lungs: Scattered Rhonchi th at clear with coughing. No wheezes, crackles, or focal sounds, Abdomen: Soft, NTND, BSNA, No organomegaly or peritoneal signs. General Pleasant and Coopera tive, NAD on RA,
--- OUTSIDE RECORDS SUMMARY | 2025-06-29 06:15 | XMS_ITS ---
Author Organization [facility] Address [address] [place] [address] Care Team Providers Care Outside Sales Account Representative Name Role Phone Toy Paredes Primary Care Provider [phone] Allergies Allergen (clinical drug ingredient) Drug/Non Drug Allergy documented on EMR Reaction Allergy Type Onset Date Status SULFA (uncoded) Unknown Allergy Acti ve Results Component Value Reference Range Notes Microalbumin (In-House) Reviewed date:06/29/2025 10:51:03 AM Interpretation:Abnormal Performing Lab: Notes/Report: Abnormal ALB 80 CRE 50 A:C 30-300 THYROID PANEL WITH TSH (7444 ) Reviewed date:07/01/2025 10:37:45 AM Interpretation: Performing Lab:STEVEN, [facility] [id number] [id number] Marty John Notes/Report: NON-FASTING; NON-FASTING; NON-FASTING; NON-FASTING; NON-FAST FASTING:YES FASTING: YES T3 UPTAKE 29 22-35 % T4 (THYROXINE), TOTAL 5.3 5.1-11.9 mcg/dL FREE T4 INDEX (T7) 1.5 1.4-3.8 TSH 1.46 0.40-4.50 mIU/L LIPID PANEL, STANDARD (7600) Reviewed date:07/01/2025 10:32:50 AM Interpretation: Performing Lab:STEVEN [employer] [id number] [facility] [facility] HospitalAhzwAP[address] Marty John Notes/Report: NON-FASTING; NON-FASTING; NON-FASTING; NON-FASTING; [...] LDL-C. Abad ANNA et al. NATALIA. 2013;310(19): 7671-0805 (http://education.[employer]/faq/JVT245) CHOL/HDLC RATIO 2.1 <5.0 (calc) NON HDL CHOLESTEROL 66 <130 mg/dL (calc) For patients with diabetes plus 1 major ASCVD risk factor, treating to a non-HDL-C goal of <100 mg/dL (LDL-C of <70 mg/dL) is considered a therapeutic option. COMPREHENSIVE METABOLIC ALYSE Borges (35887) Reviewed date:07/01/2025 10:32:56 AM Interpretation: Performing Lab:CB, [facility] W[address] [facility], [facility] HospitalLtpqVQ[address] Marty John Notes/Report: NON-FASTING; NON-FASTING; NON-FASTING; NON-FASTING; [...] Reviewed date:07/01/2025 10:32:43 AM Interpretation: Performing Lab:STEVEN [facility] Salazare[address] [facility] HospitalKen OneillL[address] Marty John Notes/Report: NON-FASTING; NON-FASTING; NON-FASTING; [...] MPV 9.3 7.5-12.5 fL ABSOLUTE NEUTROPHILS 3584 8197-9716 cells/uL ABSOLUTE LYMPHOCYTES 2145 850-3900 cells/uL ABSOLUTE MONOCYTES 673 200-950 cells/uL ABSOLUTE EOSINOPHILS 139 15-500 cells/uL ABSOLUTE BASOPHILS 59 0-200 cells/uL NEUTROPHILS 54.3 LYMPHOCYTES 32.5 MONOCYTES 10.2 EOSINOPHILS 2.1 BASOPHILS 0.9 HEMOGLOBIN A1c (496) Reviewed date:07/01/2025 10:32:26 AM Interpretation: Performing Lab:STEVEN [facility] Th[address] [facility], [facility] HospitalScyiJJ[address] Marty John Notes/Report: NON-FASTING; NON-FASTING; NON-FASTING; NON-FASTING; [...] Reviewed date:07/01/2025 10:32:37 AM Interpretation: Performing Lab:STEVEN, [facility] Mqat[address] [facility], [facility] HospitalHngiDI[address] Marty John Notes/Report: NON-FASTING; NON-FASTING; NON-FASTING; NON-FASTING; NON-FAST FASTING:YES FASTING: YES VITAMIN B12 [phone] pg/mL Please Note: Although the reference range [...] review and pick correct strength-formulati on from [employer] options. If intended option is not shown, [...] 06/29/2025 Encounters Encounter Location Date Provider Diagnosis [facility] [address] [address] 06/29/2025 Toy Paredes Acute bronchitis, unspecified organism [...] Up: 6 Weeks, Reason: Provider Name:Toy Paredes, 08/03/2025 10:45:00 AM, [address], [address], Provider Name:Toy Paredes, 08/10/2025 10:15:00 AM, 2016 [facility], [facility], [place], [address], Progress Notes * My GIRALDOhDOB: (65 yo F)Acc No.[id number]:06/29/2025 Progress Notes Patient: Naga LUISANTELMORuthy Provider: Jo Ann Paredes MD :[id number] A ge:65 Y S ex:Female Date:06/29/2025 Address:[address] [place] [address], [id number] Subjective: * Chief Complaints: * 1 . [...] was negative for carcinoma -repeat ultrasound in [place] and December - And a normal mammogram again January 2023, Raynaud's syndrome, Normal Mammogram 02/05. * Surgical History: r ight hand , right elbow , right shoulder , right knee , tummy tuck/ hernia repair x 3 06/2015, Lt knee replacement , LT arm , RT knee replacement 10/21/2024, colonscopy 05/2025. * Hospitalization/Major Diagno stic Procedure: lyle cheek [facility]- knee surgery 10/21-06/2025. * Family History: F ather: , lupus. M other: , diagnosed with Heart Disease, Hypertension, Diabetes. P aternal Grand Father: . P aternal Grand Mother: . M aternal Grand Father: . M aternal Grand Mother: . P aternal uncle: alive. P aternal aunt: alive. M aternal aunt: alive. S sonia: , DC, diagnosed with Diabetes, Hypertension, Heart Disease. C mayelin: alive, diagnosed with Hypertension. 1 brother(s) . [...] Refills 1. L AB: COMPREHENSIVE METABOLIC PANEL (98456) Value Reference Range G LUCOSE 93 65-99 - mg/dL * U KAMRAN NITROGEN (BUN) 9 7-25 - mg/dL * C REATININE 0.69 0.50-1.05 - mg/dL * B UN/CREATININE RATIO SEE NOTE: 6-22 - (calc) * S ODIUM 138 135-146 [...] All reviewed personally??3.?Hyperlipidemia, unspecified?LAB: LIPID PANEL, STANDARD (6340)* Value Reference Range T RIGLYCERIDES 211 H [...] EDT 4.?Acquired hypothyroidism?LAB: THYROID PANEL WITH TSH (5044)* Value Reference Range T 3 UPTAKE 29 22-35 - % * T 4 (THYROXINE), TOTAL 5.3 5.1-11.9 - mcg/dL * F REE T4 INDEX (T7) 1.5 1.4-3.8 - * T SH 1.46 0.40-4.50 - mIU/L * Helena Romero 07/01/2025 10:37:34 AM EDT > patient informedThis lab was reviewed by Helena Romero on 07/01/2025 at 10:37 AM EDT ?LAB: CBC (INCLUDES DIFF/PLT) (3682)* Value Reference Range W STELLA BLOOD CELL [...] - % * A BSOLUTE NEUTROPHILS 3584 7953-8348 - cells/uL * L YMPHOCYTES 32.5 - [...] >24.0 - ng/mL * V ITAMIN B12 435 561-7973 - pg/mL * This lab was reviewed [...] 10:37 AM EDT ?LAB: CBC (INCLUDES DIFF/PLT) (9099)* Value Reference Range W STELLA BLOOD CELL [...] - % * A BSOLUTE NEUTROPHILS 3584 2520-7496 - cells/uL * L YMPHOCYTES 32.5 - [...] >24.0 - ng/mL * V ITAMIN B12 636 295-0106 - pg/mL * This lab was reviewed by Danii Romero on 07/01/2025 at 10:32 AM EDT * Procedure Codes: 8 2044 MICROALBUMIN, URINE, Modifiers: QW , G2211 Complex e/m visit add on * Follow Up: 6 Weeks * * Sign off status: Completed true * Provider: Jo Ann Paredes MD Date: 0 06/29/2025 Generated for Printi ng/Faxing/eTransmitting on: 1 04:12 PM EDT History and Physical Notes * [...] or peritoneal signs. General Pleasant and Cooper[place] tive NAD on RA,
[2025-08-02] VITALS (9 sets, daily range): BP systolic 108–149; BP diastolic 63–88; PULSE 74–122; RESP 12–18; TEMP 37–37.1; O2SAT 92–96; BMI 26.6
--- NOTE | 2025-08-02 16:06 | ED_ITS ---
<Statement entered by Kasey Newberry DO - 08/03/25 00:05> I was consulted by the DAIANA, and we discussed the complexity of problems being addressed. I approve the treatment and management plan for this patient's care in the emergency department, thus performing a substantial portion of the medical decision making. Kasey Newberry DO Discharge Plan Disposition Chief Complaint: Extremity Injury, Upper Prescriptions Prescriptions: No Action diltiazem HCl 30 mg tablet 30 mg PO DAILY ondansetron HCl 4 mg tablet 4 mg PO NEEDED PRN (Reason: .) Patient Comments: TAKE 1 TABLET BY MOUTH EVERY 8 HOURS DIRECTED FOR NAUSEA AND VOMITING venlafaxine 37.5 mg tablet 37.5 mg PO DAILY rosuvastatin 10 mg tablet 10 mg PO DAILY Ozempic 0.25 mg or 0.5 mg (2 mg/3 mL) pen injector 0.5 mg SQ WEEKLY furosemide 20 mg tablet 20 mg PO TID pregabalin [Lyrica] 200 mg capsule 225 mg PO BID Linzess 72 mcg capsule 72 mcg PO DAILY Qty: 90 3RF buspirone 10 mg tablet See Rx Instructions .ROUTE .COMPLEX Qty: 90 0RF Dose Instruction: Take 1 tablet by mouth twice daily Rx Instructions: Take 1 tablet by mouth twice daily famotidine 20 MG tablet 20 mg PO BID ntedxwzj-ogn-UZ-lycopen-lutein 1 EACH tablet 1 each PO DAILY Referrals Follow up/Referrals: Toy Paredes MD [Primary Care Provider, Internal Medicine] - See instructions Print Language Print Language: Upper Sorbian Discharge ED Provider: Kasey Newberry General Adult HPI <GILMER Castaneda - Last Filed: 08/02/25 19:50> General Chief complaint: Extremity Injury, Upper Stated complaint: Rash on Right Forearm Time Seen by Provider: 08/02/25 16:00 Mode of Arrival: Ambulatory Source of Information: Patient Description of Symptoms (Recalled from ER Triage Doc. by RN): PT c/o R arm redness, swelling, and pain. Pt stated she woke up this morning and noticed her arm was red and hot. Pt also c/o just overall feeling unwell, tired, nausea, aches. History of Present Illness HPI narrative: This is a 65-year-old female with a past medical history of GERD, IBS, peptic ulcer disease presenting to the emergency department today for evaluation of right upper extremity redness and swelling that began this morning. Patient noticed her right upper extremity to be red and warm this morning. She also reports some swelling that is not typical. Additionally she has felt like she is short of breath throughout the day today. This is worse with exertion. She has not had any chest pain. She has felt some abdominal bloating. She reports normal bowel movements today. No nausea or vomiting. Patient denies hormone use, cancer history, recent sedentary state, and no recent travel. This has never happened in the past. She is otherwise healthy. Related Data Home Medications ?Medication ?Instructions ?Recorded ?Confirmed furosemide 20 mg tablet 20 mg PO TID Edema 10/15/17 08/02/25 diltiazem HCl 30 mg tablet 30 mg PO DAILY High blood p ressure 10/01/19 08/02/25 famotidine 20 mg tablet 20 mg PO BID Reflux/Acid ref lux 05/22/22 08/02/25 gzigfyeu-pgi-wyuaz acid 0.4 1 each PO DAILY supplement ' 05/22/22 08/02/25 mg-lycopene 300 mcg-lutein 250 mcg tablet ondansetron HCl 4 mg tablet 4 mg PO NEEDED PRN . 08/02/25 pregabalin 200 mg capsule (Lyrica) 225 mg PO BID fibro myalgea 01/11/25 08/02/25 rosuvastatin 10 mg tablet 10 mg PO DAILY 01/11/2507/15 semaglutide 0.25 mg or 0.5 mg (2 0.5 mg SQ WEEKLY 12/1408/02/25 mg/3 mL) subcutaneous pen injector (Ozempic) venlafaxine 37.5 mg tablet 37.5 mg PO DAILY 01/11/25 1 Previous Rx's ?Medication ?Instructions ?Recorded linaclotide 72 mcg capsule 72 mcg PO DAILY . #90 caps 05/03/25 (Linzess) buspirone 10 mg tablet See Rx Instructions .Route 1 .COMPLEX #90 tabs Allergies Allergy/AdvReac Type Severity Reaction Status Date / Time Sulfa (Sulfonamide Allergy Unknown I-HIVES Verified 05/20/25 12:56 Antibiotics) (SULFA (SULFONAMIDE ANTIBIOTICS)) PFS <GILMER Castaneda - Last Filed: 08/02/25 19:50> PFS Disclaimer: The information contained in this section may have been updated after the patient was seen, as this information can be updated by other users. Medical History History of gastroesophageal reflux (GERD) Surgical History Colonoscopy planned History of tubal ligation History of hysterectomy History of cholecystectomy History of appendectomy Family History Other No significant family history Social History Smoking Status: Never smoker alcohol intake: never substance use type: denies use current occupational status: retired Travel in the last 8 weeks?: None household members: spouse housing: house current occupational exposures/hazards: No caffeine: Yes Have you lived/traveled outside US in past 30 days?: No Contact w/someone who lives/traveled outside US past 30 days?: No Exposure to someone with infectious disease in past 14 days?: No Do you have a fever (greater than 100.4 F or 38 C)?: No Have you tested positive for COVID-19?: No Exposed to someone with COVID-19 in past 14 days?: No Do you have a sore throat?: No Do you have a cough?: No Do you have any weakness?: No Do you have any diarrhea?: No Are you experiencing any unusual bleeding?: No Do you have any muscle aches/pain?: No Do you have any abdominal pain?: No Are you experiencing loss of taste or smell?: No Other Medical History Have you received the Flu Vaccine for this season: Yes Have you received the Pneumonia Vaccine: No <GILMER Castaneda - Last Filed: 08/02/25 19:50> ROS Obtained: Yes Systems reviewed as appropriate & no additional complaints except as documented Physical Exam <GILMER Castaneda - Last Filed: 08/02/25 19:50> General General appearance: alert and in no apparent distress Head Head exam: atraumatic and normocephalic Neck Neck exam: Present normal inspection and full ROM Respiratory Respiratory exam: Present normal lung sounds bilaterally; Absent respiratory distress, wheezes or stridor Cardiovascular Cardiovascular exam: Present tachycardia Abdominal Exam Abdominal exam: Present soft; Absent distention or tenderness Expanded Upper Extremity Exam Right: Elbow exam: Present full ROM Forearm/Wrist exam: Present full ROM, swelling and erythema Hand exam: Present full ROM Neurological Exam Neurological exam: Present alert and oriented X3 Psychiatric Psychiatric exam: Present normal affect Skin Skin exam: Present other (distal right forearm erythematous and warm. Slightly larger than left upper extremity. Radial and ulnar pulses 2+ and equal bilaterally. Cap refill <2 seconds. No induration or fluctuance.) Medical Decision Making <GILMER Castaneda - Last Filed: 08/02/25 19:50> Medical Records Screening: Per USPSTF and CDC recommendations, given the prevalence of disease in our region, it is our hospital?s policy to screen for HIV and viral Hepatitis for all patients aged 18 and over and those with ongoing risk factors. Dileep Inquiry Pt receiving controlled substance: No Vital Signs: 08/02/25 15:56 08/02/25 16:01 08/02/25 16:30 Temperature 98.7 F 98.7 F Temperature Source Oral Oral Pulse Rate 122 H 114 H Pulse Rate [Right] 120 H Respiratory Rate 18 18 Blood Pressure 134/76 146/88 H Blood Pressure [Right Arm] 134/76 Blood Pressure Mean 98 Blood Pressure Mean [Right Arm] 95 Blood Pressure Source [Right Arm] Automatic Cuff Blood Pressure Position [Right Arm] Sitting 02 Sat by Pulse Oximetry 96 96 92 L Oxygen Delivery Method Room Air Room Air 08/02/25 17:11 08/02/25 17:30 08/02/25 17:50 Temperature Temperature Source Pulse Rate 100 H 95 H 102 H Pulse Rate [Right] Respiratory Rate Blood Pressure 108/63 L 117/65 134/66 Blood Pressure [Right Arm] Blood Pressure Mean 78 79 74 Blood Pressure Mean [Right Arm] Blood Pressure Source [Right Arm] Blood Pressure Position [Right Arm] 02 Sat by Pulse Oximetry 92 L 93 L 93 L Oxygen Delivery Method 08/02/25 18:00 Temperature Temperature Source Pulse Rate 102 H Pulse Rate [Right] Respiratory Rate Blood Pressure 122/78 Blood Pressure [Right Arm] Blood Pressure Mean 90 Blood Pressure Mean [Right Arm] Blood Pressure Source [Right Arm] Blood Pressure Position [Right Arm] 02 Sat by Pulse Oximetry 93 L Oxygen Delivery Method Lab Data Lab Results 08/02/25 16:15: WBC 23.8 H*, RBC 4.39, Hgb 13.9, Hct 41.8, MCV 95.2, MCH 31.7 H, MCHC 33.3, RDW 12.9, Plt Count 229, MPV 9.5, Neut % (Auto) 80.5 H, Lymph % (Auto) 10.1, [place] % (Auto) 7.8, Eos % (Auto) 0.1, Baso % (Auto) 0.4, Neut # (Auto) 19.2 H, Lymph # (Auto) 2.4, [place] # (Auto) 1.9 H, Eos # (Auto) 0.0, Baso # (Auto) 0.1, Total Counted 100, Neutrophils % (Manual) 85 H, Band Neutrophils % 3.0, Lymphocytes % (Manual) 9 L, Monocytes % (Manual) 3, Platelet Estimate Normal, RBC Morphology Normal, D-Dimer 0.98 H, Sodium 134 L, Potassium 3.3 L, C hloride 93 L, Carbon Dioxide 28, Anion Gap 16.3 H, BUN 12, Creatinine 0.80, Estimated Creat Clear 65, Estimated GFR 72, Est GFR ( Amer) 87, Glucose 163 H, Calcium 8.8, Total Bilirubin 1.5 H, AST 37 H, ALT 29, Alkaline Phosphatase 83, Troponin I < 0.01, C-Reactive Protein 124.6 H, Total Protein 7.3, Albumin 4.2, Globulin 3.1, Albumin/Globulin Ratio 1.4 08/02/25 16:56: SARS-CoV-2 (PCR) Not detected, Influenza A Untype (PCR) Not detected, Influenza Type B (PCR) Not detected 08/02/25 16:15 08/02/25 16:15 Orders (Tests/Meds): ED MEDICATIONS Generic Name Dose Route Start Last Admin Trade Name Freq PRN Reason Stop Dose Admin Miscellaneous 1 each 08/02/25 17:15 Vancomycin Consult Request NOTAPPLIC 09/01/25 17:14 CONSULT PHARMACY [facility] Sodium Chloride 10 ml 08/02/25 17:26 08/02/25 17:27 Sodium Chloride 0.9% 10ml Syr (Rad Only) IV 09/01/25 17:25 10 ml NEEDED PRN Administration Maintain IV Site Discontinued Medications Generic Name Dose Route Start Last Admin Trade Name Freq PRN Reason Stop Dose Admin Sodium Chloride 1,000 mls @ 999 mls/hr 08/02/25 17:06 08/02/25 18:23 Sod Chlor 0.9% 1000ml Bag IV 08/02/25 18:06 Infused .Q1H1M ONE Infusion Ceftriaxone Sodium 2 gm/ 100 mls @ 200 mls/hr 08/02/25 17:08 08/02/25 18:45 Sodium Chloride IV 08/02/25 17:37 Infused ONCE ONE Infusion Vancomycin/PEG/NADA/Lysine/Water 1.5 gm in 300 mls @ 150 mls/hr 08/02/25 17:15 08/02/25 18:38 Vancomycin 1.5gm/300ml (Peg) Premix IV 08/02/25 19:14 150 mls/hr ONCE ONE Administration Iopamidol 70 ml 08/02/25 17:26 08/02/25 17:27 Iopamidol-370 (76%);100ml Bottle IV 08/02/25 17:27 70 ml ONCE ONE Administration Ondansetron HCl 4 mg 08/02/25 16:51 08/02/25 17:00 Ondansetron 4mg/2ml Vial IV 08/02/25 16:52 4 mg ONCE ONE Administration Sodium Chloride 1,000 ml 08/02/25 16:39 08/02/25 17:05 Sodium Chloride 0.9% 500ml Bag IV 08/02/25 16:40 Not Given ONCE ONE Sodium Chloride 50 ml 08/02/25 17:26 08/02/25 17:27 0.9 % Sodium Chloride 50 Ml Vial IV 08/02/25 17:27 50 ml ONCE ONE Administration ORDERS Category Date Time Status CT abdomen pelvis w con Stat Cat Scan 08/02/25 16:[address] angio chest PE protocol Stat Cat Scan 08/02/25 16:39 Completed CBC w/Auto Diff [Complete Blood Count Auto Diff] Stat Lab 08/02/25 16:15 Completed CMP [Comprehensive Metabolic Panel] Stat Lab 08/02/25 16:15 Completed CRP [C-Reactive Protein] Stat Lab 08/02/25 16:15 Completed D-Dimer Stat Lab 08/02/25 16:15 Completed Rapid PCR Covid and Flu A/B Stat Lab 08/02/25 16:56 Completed Trop I [Troponin I] Stat Lab 08/02/25 16:15 Completed Troponin I Q3H Lab 08/02/25 19:45 Ordered Troponin I Q3H Lab 08/02/25 22:45 Ordered Blood Culture Stat Micro 08/02/25 17:47 Received CA venous doppler UE RT Stat Y 08/02/25 16:39 Completed Medical Decision Narrative: In summary, this is a 65-year-old female presenting to the emergency department today for evaluation of right upper extremity redness, warmth and swelling that began today. No known trauma, bite or injury. Patient also reports shortness of breath throughout the day that has worsened with exertion. She has never experienced this in the past. She denies chest pain. She does have some generalized abdominal pain but reports normal bowel and bladder output. On exam patient is well-appearing and in no acute distress. She is tachycardic. She speaks in full sentences without having to stop for breath. The lungs are clear to auscultation bilaterally without adventitious sounds. Respiratory rate and effort are normal and nonlabored. On exam of the right upper extremity there is right distal forearm erythema, warmth, and mild edema. Radial and ulnar pulses 2+ equal bilaterally. Capillary refill less than 2 seconds. The abdomen is soft and nondistended. Patient reports generalized tenderness to palpation. No CVA tenderness. Lower extremities without edema or skin changes. Exam otherwise unremarkable. Differential diagnoses include but are not limited to cellulitis, contusion, DVT, PE, among others. Will obtain laboratory workup as well as CTA of the chest to rule out pulmonary embolism. Will also obtain CT abdomen pelvis with IV contrast given reported abdominal bloating and generalized tenderness to palpation. We will give Zofran, and fluid bolus. 5:05PM Patient meets sepsis criteria. We will obtain blood cultures and will give broad spectrum antibiotics. CBC reveals white count of 23.8 with neutrophil shift of 80.5%. D-dimer elevated at 0.98. CRP elevated at 124.6. 6:05 PM On reassessment, patient remains well-profused with capillary refill <2-3 seconds. Antibiotics in process. CTAP without acute findings. 7:42 PM CTPE negative. Patient will require admission for treatment of right upper extremity cellulitis. I consulted our hospitalist to proceed with admission. Their team will evaluate and will continue management of RUE cellulitis. <Maria R Green (ED), VAMP LINER - Last Filed: 08/02/25 18:14> Vital Signs: 08/02/25 15:56 08/02/25 16:01 08/02/25 16:30 Temperature 98.7 F 98.7 F Temperature Source Oral Oral Pulse Rate 122 H 114 H Pulse Rate [Right] 120 H Respiratory Rate 18 18 Blood Pressure 134/76 146/88 H Blood Pressure [Right Arm] 134/76 Blood Pressure Mean 98 Blood Pressure Mean [Right Arm] 95 Blood Pressure Source [Right Arm] Automatic Cuff Blood Pressure Position [Right Arm] Sitting 02 Sat by Pulse Oximetry 96 96 92 L Oxygen Delivery Method Room Air Room Air 08/02/25 17:11 08/02/25 17:30 08/02/25 17:50 Temperature Temperature Source Pulse Rate 100 H 95 H 102 H Pulse Rate [Right] Respiratory Rate Blood Pressure 108/63 L 117/65 134/66 Blood Pressure [Right Arm] Blood Pressure Mean 78 79 74 Blood Pressure Mean [Right Arm] Blood Pressure Source [Right Arm] Blood Pressure Position [Right Arm] 02 Sat by Pulse Oximetry 92 L 93 L 93 L Oxygen Delivery Method 08/02/25 18:00 Temperature Temperature Source Pulse Rate 102 H Pulse Rate [Right] Respiratory Rate Blood Pressure 122/78 Blood Pressure [Right Arm] Blood Pressure Mean 90 Blood Pressure Mean [Right Arm] Blood Pressure Source [Right Arm] Blood Pressure Position [Right Arm] 02 Sat by Pulse Oximetry 93 L Oxygen Delivery Method Lab Data Lab Results 08/02/25 16:15: WBC 23.8 H*, RBC 4.39, Hgb 13.9, Hct 41.8, MCV 95.2, MCH 31.7 H, MCHC 33.3, RDW 12.9, Plt Count 229, MPV 9.5, Neut % (Auto) 80.5 H, Lymph % (Auto) 10.1, [place] % (Auto) 7.8, Eos % (Auto) 0.1, Baso % (Auto) 0.4, Neut # (Auto) 19.2 H, Lymph # (Auto) 2.4, [place] # (Auto) 1.9 H, Eos # (Auto) 0.0, Baso # (Auto) 0.1, Total Counted 100, Neutrophils % (Manual) 85 H, Band Neutrophils % 3.0, Lymphocytes % (Manual) 9 L, Monocytes % (Manual) 3, Platelet Estimate Normal, RBC Morphology Normal, D-Dimer 0.98 H, Sodium 134 L, Potassium 3.3 L, C hloride 93 L, Carbon Dioxide 28, Anion Gap 16.3 H, BUN 12, Creatinine 0.80, Estimated Creat Clear 65, Estimated GFR 72, Est GFR ( Amer) 87, Glucose 163 H, Calcium 8.8, Total Bilirubin 1.5 H, AST 37 H, ALT 29, Alkaline Phosphatase 83, Troponin I < 0.01, C-Reactive Protein 124.6 H, Total Protein 7.3, Albumin 4.2, Globulin 3.1, Albumin/Globulin Ratio 1.4 08/02/25 16:56: SARS-CoV-2 (PCR) Not detected, Influenza A Untype (PCR) Not detected, Influenza Type B (PCR) Not detected Orders (Tests/Meds): ED MEDICATIONS Generic Name Dose Route Start Last Admin Trade Name Freq PRN Reason Stop Dose Admin Miscellaneous 1 each 08/02/25 17:15 Vancomycin Consult Request NOTAPPLIC 09/01/25 17:14 CONSULT PH[facility]Y [facility] Sodium Chloride 10 ml 08/02/25 17:26 08/02/25 17:27 Sodium Chloride 0.9% 10ml Syr (Rad Only) IV 09/01/25 17:25 10 ml NEEDED PRN Administration Maintain IV Site Discontinued Medications Generic Name Dose Route Start Last Admin Trade Name Freq PRN Reason Stop Dose Admin Sodium Chloride 1,000 mls @ 999 mls/hr 08/02/25 17:06 08/02/25 18:23 Sod Chlor 0.9% 1000ml Bag IV 08/02/25 18:06 Infused .Q1H1M ONE Infusion Ceftriaxone Sodium 2 gm/ 100 mls @ 200 mls/hr 08/02/25 17:08 08/02/25 18:45 Sodium Chloride IV 08/02/25 17:37 Infused ONCE ONE Infusion Vancomycin/PEG/NADA/Lysine/Water 1.5 gm in 300 mls @ 150 mls/hr 08/02/25 17:15 08/02/25 18:38 Vancomycin 1.5gm/300ml (Peg) Premix IV 08/02/25 19:14 150 mls/hr ONCE ONE Administration Iopamidol 70 ml 08/02/25 17:26 08/02/25 17:27 Iopamidol-370 (76%);100ml Bottle IV 08/02/25 17:27 70 ml ONCE ONE Administration Ondansetron HCl 4 mg 08/02/25 16:51 08/02/25 17:00 Ondansetron 4mg/2ml Vial IV 08/02/25 16:52 4 mg ONCE ONE Administration Sodium Chloride 1,000 ml 08/02/25 16:39 08/02/25 17:05 Sodium Chloride 0.9% 500ml Bag IV 08/02/25 16:40 Not Given ONCE ONE Sodium Chloride 50 ml 08/02/25 17:26 08/02/25 17:27 0.9 % Sodium Chloride 50 Ml Vial IV 08/02/25 17:27 50 ml ONCE ONE Administration ORDERS Category Date Time Status CT abdomen pelvis w con Stat Cat Scan 08/02/25 16:[address] angio chest PE protocol Stat Cat Scan 08/02/25 16:39 Completed CBC w/Auto Diff [Complete Blood Count Auto Diff] Stat Lab 08/02/25 16:15 Completed CMP [Comprehensive Metabolic Panel] Stat Lab 08/02/25 16:15 Completed CRP [C-Reactive Protein] Stat Lab 08/02/25 16:15 Completed D-Dimer Stat Lab 08/02/25 16:15 Completed Rapid PCR Covid and Flu A/B Stat Lab 08/02/25 16:56 Completed Trop I [Troponin I] Stat Lab 08/02/25 16:15 Completed Troponin I Q3H Lab 08/02/25 19:45 Ordered Troponin I Q3H Lab 08/02/25 22:45 Ordered Blood Culture Stat Micro 08/02/25 17:47 Received CA venous doppler UE RT Stat Y 08/02/25 16:39 Completed Critical Care <Maria R Green (KOMAL), VAMP LINER - Last Filed: 08/02/25 18:14> Critical Care Time Critical Care Time: No
--- OUTSIDE RECORDS SUMMARY | 2025-08-02 16:11 | XMS_ITS | Clinical Summary ---
Author Organization Address [address] [place] [address] Care Team Providers Care Color Corrector Name Role Phone Toy Paredes MD Primary Care Provider + [phone] Allergies Active Allergy Reactions Criticality Noted Date Comments Sulfa Drugs Hives Medium 12/29/2023 Social History Tobacco Use Types Packs/Day Years Used Date Smoking Tobacco: Never Assessed Comments Unknown Sex and Gender Information Value Date Recorded Sex Assigned at Not on file Legal Sex Female 8:15 PM EDT Gender Identity Not on file Sexual Orientation Not on file Last Filed Vital Signs Vital Sign Reading Time Taken Comments Blood Pressure 140/93 12/29/2023 4:58 PM EDT Pulse 83 12/29/2023 4:58 PM EDT Temperature 36.3 C (97.4 F) 12/29/2023 4:58 PM EDT Respiratory Rate 18 12/29/2023 4:58 PM EDT Oxygen Saturation 96% 12/29/2023 4:58 PM EDT Inhaled Oxygen Concentration - - Weight 77.1 kg (170 lb) 12/29/2023 11:11 AM EDT Height 167.6 cm (5' 6 ) 12/29/2023 11:11 AM EDT Body Mass Index 27.44 12/29/2023 11:11 AM EDT Plan of Treatment Health Maintenance Due Date Last Done Comments [facility]-Bone Density Scan 1959 [facility]-Depression Screening 1959 [facility]-Hepatitis C Screening 1959 [facility]-Medicare Annual Wellness (AWV) 1959 [facility]-Infant/Child/Adol SDOH Screenings 1959 [facility]-Obesity Intervention 1965 [facility]- SDOH Screenings 1977 [facility]-Adult SDOH Screenings 1977 [facility]-DTaP,Tdap,and Td Vaccines (1 - Tdap) 1978 CT Colonography 2004 Colonoscopy 2004 FIT-DNA 2004 FIT 2004 FOBT 2004 Sigmoidoscopy 2004 [facility]-Colorectal Cancer Screening 2004 [facility]-Breast Cancer Screening 2009 [facility]-Pneumococcal Vaccine: 50+ Years (1 of 1 - PCV) 2009 [id number] Vaccine (4 - season) 2025 10/19/2021, 02/09/2021, 01/12/2021 [facility]-Influenza Vaccine (#1) 06/14/202508/22, 06/20/2021, 08/16/2020, Additional history exists [facility]-Hepatitis A Vaccines Aged Out 09/19/2018 No longer eligible based on patient's age to complete this topic [facility]-Zoster Vaccines Completed 02/07/2022, [facility]-RSV Vaccine: 60+ Years or Completed 08/22/2023 HPV Vaccines Aged Out No longer eligi ble based on patient's age to complete this topic [facility]-HIB Vaccines Aged Out No longer e ligible based on patient's age to complete this topic [facility]-IPV Vaccines Aged Out No longer e ligible based on patient's age to complete this topic [facility]-Rotavirus Vaccines Aged Out No lo nger eligible based on patient's age to complete this topic [place] [address] ANTHEM Care Teams Color Corrector Relationship Specialty Start Date End Date Toy Paredes MD [address] [place] [address] [place] [id number] PCP - General 02/24/21
--- OUTSIDE RECORDS SUMMARY | 2025-08-02 16:12 | XMS_ITS | Patient Health Record ---
Author Organization [facility] Address [address] [place] [address] Care Team Providers Care Cleaning Attendant Name Role Phone Toy Carlos Primary Care Provider Migration, Provider Unavailable Unavailable Allergies Allergen (clinical drug ingredient) Drug/Non Drug Allergy documented on EMR Reaction Allergy Type Onset Date Status SULFA (uncoded) Unknown Allergy Acti ve Results Component Value Reference Range Notes HEMOGLOBIN A1c (496) Reviewed date:07/01/2025 10:32:26 AM Interpretation: Performing Lab:CB, [facility] Yevw1353 [facility], [facility] ClinicOgnzKB[address] Marty John Notes/Report: NON-FASTING; NON-FASTING; NON-FASTING; NON-FASTING; [...] of diabetes for children. VITAMIN B12/FOLATE, SERUM PA SILVANO (1057) Reviewed date:07/01/2025 10:32:37 AM Interpretation: Performing Lab:CB, [facility] [address], SkiApps.comRvrnAU[address] Marty John Notes/Report: NON-FASTING; NON-FASTING; NON-FASTING; NON-FASTING; NON-FAST FASTING:YES FASTING: YES VITAMIN B12 715 806-2250 pg/mL Please Note: Although the reference range [...] Range Low: <3.4 Borderline: 3.4-5.4 Normal: >5.4 CBC (INCLUDES DIFF/PLT) (639 9) Reviewed date:07/01/2025 10:32:43 AM Interpretation: Performing Lab:STEVEN, [facility] [address], SkiApps.comTzhiXL[address] Marty John Notes/Report: NON-FASTING; NON-FASTING; NON-FASTING; NON-FASTING; [...] MPV 9.3 7.5-12.5 fL ABSOLUTE NEUTROPHILS 3584 8030-9203 cells/uL ABSOLUTE LYMPHOCYTES 2145 850-3900 cells/uL ABSOLUTE MONOCYTES 673 200-950 cells/uL ABSOLUTE EOSINOPHILS 139 15-500 cells/uL ABSOLUTE BASOPHILS 59 0-200 cells/uL NEUTROPHILS 54.3 LYMPHOCYTES 32.5 MONOCYTES 10.2 EOSINOPHILS 2.1 BASOPHILS 0.9 COMPREHENSIVE METABOLIC PANE L (95627) Reviewed date:07/01/2025 10:32:56 AM Interpretation: Performing Lab:STEVEN Spark CRMSt. Cloud Hospitale1355 [facility] HospitalAudiBell DesignsHob[facility], [facility] ClinicTkhqVW[address] Marty John Notes/Report: NON-FASTING; NON-FASTING; NON-FASTING; NON-FASTING; [...] 22 10-35 U/L ALT 24 6-29 U/L LIPID PANEL, STANDARD (7600) Reviewed date:07/01/2025 10:32:50 AM Interpretation: Performing Lab:STEVEN Spark CRMSt. Cloud Hospitale1355 KnowledgeTreeHoboken [facility], [facility] ClinicSgwsOB[address] Marty John Notes/Report: NON-FASTING; NON-FASTING; NON-FASTING; NON-FASTING; [...] factors. LDL-C is now calculated using the Patricia calculation, which is a validated novel method providing better accuracy than the Friedewald equation in the estimation of LDL-C. Abad ANNA et al. NATALIA. 2013;310(67): 4215-7190 (http://education.Tranzlogic/faq/YQJ720) CHOL/HDLC RATIO 2.1 <5.0 (calc) NON HDL CHOLESTEROL 66 <130 mg/dL (calc) For patients with diabetes plus 1 major ASCVD risk factor, treating to a non-HDL-C goal of <100 mg/dL (LDL-C of <70 mg/dL) is considered a therapeutic option. THYROID PANEL WITH TSH (7444 ) Reviewed date:07/01/2025 10:37:45 AM Interpretation: Performing Lab:STEVEN Spark [facility]-Environmental Operating Solutionse[address], SkiApps.comVncvMH[address] Marty John Notes/Report: NON-FASTING; NON-FASTING; NON-FASTING; NON-FASTING; NON-FAST FASTING:YES FASTING: YES T3 UPTAKE 29 22-35 % T4 (THYROXINE), TOTAL 5.3 5.1-11.9 mcg/dL FREE T4 INDEX (T7) 1.5 1.4-3.8 TSH 1.46 0.40-4.50 mIU/L Microalbumin (In-House) Reviewed date:06/29/2025 10:51:03 AM Interpretation:Abnormal Performing Lab: Notes/Report: Abnormal ALB 80 CRE 50 A:C 30-300 Mammogram : Bilateral Reviewed date:02/08/2025 02:01:22 PM Interpretation: Performing Lab: Notes/Report: LIPID PANEL, STANDARD (7600) Reviewed date:12/24/2024 10:38:25 AM Interpretation: Performing Lab:STEVEN dreamsha.[address] [employer], SkiApps.comJsidPM[address] Marty John Notes/Report: NON-FASTING; NON-FASTING; NON-FASTING; NON-FASTING; NON-FAST FASTING:NO FASTING: NO CHOLESTEROL, TOTAL 145 <200 mg/dL HDL CHOLESTEROL 61 > OR = 50 mg/dL TRIGLYCERIDES 172 <150 mg/dL LDL-CHOLESTEROL 59 Reference range: <100 Desirable range <100 mg/dL for primary prevention; <70 mg/dL for patients with CHD or diabetic patients with > or = 2 CHD risk factors. LDL-C is now calculated using the Patricia calculation, which is a validated novel method providing better accuracy than the Friedewald equation in the estimation of LDL-C. Abad SS et al. NATALIA. 2013;310(98): 6362-1117 (http://education.Tranzlogic/faq/YBM416) CHOL/HDLC RATIO 2.4 <5.0 (calc) NON HDL CHOLESTEROL 84 <130 mg/dL (calc) For patients with diabetes plus 1 major ASCVD risk factor, treating to a non-HDL-C goal of <100 mg/dL (LDL-C of <70 mg/dL) is considered a therapeutic option. COMPREHENSIVE METABOLIC PANAlexis Borges (06876) Reviewed date:08/19/2024 04:07:46 PM Interpretation: Performing Lab:STEVEN, [facility]-Ken Salazare1355 [facility], Ken AdkinsHjlmKH[address] Marty John Notes/Report: NON-FASTING; NON-FASTING; NON-FASTING; NON-FASTING GLUCOSE 83 65-99 mg/dL Fasting reference interval UREA NITROGEN (BUN) 8 7-25 mg/dL CREATININE 0.67 0.50-1.05 mg/dL EGFR 97 > OR = 60 mL/min/1.73m2 BUN/CREATININE RATIO SEE NOTE: 6-22 (calc) Not Reported: BUN and Creatinine are within reference range. SODIUM 139 135-146 mmol/L POTASSIUM 4.1 3.5-5.3 mmol/L CHLORIDE 100 98-110 mmol/L CARBON DIOXIDE 29 20-32 mmol/L CALCIUM 9.6 8.6-10.4 mg/dL PROTEIN, TOTAL 7.2 6.1-8.1 g/dL ALBUMIN 4.4 3.6-5.1 g/dL GLOBULIN 2.8 1.9-3.7 g/dL (calc) ALBUMIN/GLOBULIN RATIO 1.6 1.0-2.5 (calc) BILIRUBIN, TOTAL 0.5 0.2-1.2 mg/dL ALKALINE PHOSPHATASE 74 37-153 U/L AST 24 10-35 U/L ALT 23 6-29 U/L COMPREHENSIVE METABOLIC PANE L (26355) Reviewed date:12/24/2024 10:38:25 AM Interpretation: Performing Lab:STEVEN [address] [facility] Marty John Notes/Report: NON-FASTING; NON-FASTING; NON-FASTING; NON-FASTING; NON-FAST FASTING:NO FASTING: NO GLUCOSE 97 65-139 mg/dL Non-fasting reference interval UREA NITROGEN (BUN) 8 7-25 mg/dL CREATININE 0.67 0.50-1.05 mg/dL EGFR 97 > OR = 60 mL/min/1.73m2 BUN/CREATININE RATIO SEE NOTE: 6-22 (calc) Not Reported: BUN and Creatinine are within reference range. SODIUM 139 135-146 mmol/L POTASSIUM 3.8 3.5-5.3 mmol/L CHLORIDE 102 98-110 mmol/L CARBON DIOXIDE 27 20-32 mmol/L CALCIUM 9.4 8.6-10.4 mg/dL PROTEIN, TOTAL 7.4 6.1-8.1 g/dL ALBUMIN 4.6 3.6-5.1 g/dL GLOBULIN 2.8 1.9-3.7 g/dL (calc) ALBUMIN/GLOBULIN RATIO 1.6 1.0-2.5 (calc) BILIRUBIN, TOTAL 0.4 0.2-1.2 mg/dL ALKALINE PHOSPHATASE 74 37-153 U/L AST 23 10-35 U/L ALT 30 6-29 U/L VITAMIN B12 (927) Reviewed date:12/24/2024 10:38:25 AM Interpretation: Performing Lab:STEVEN Spark CRMSyntaxin [address] [facility], [facility] ClinicWkxyVF[address] Marty John Notes/Report: NON-FASTING; NON-FASTING; NON-FASTING; NON-FASTING; NON-FAST FASTING:NO FASTING: NO VITAMIN B12 423 278-0490 pg/mL Please Note: Although the reference range for vitamin B12 is 200-1100 pg/mL, it has been reported that between 5 and 10% of patients with values between 200 and 400 pg/mL may experience neuropsychiatric and hematologic abnormalities due to occult B12 deficiency; less than 1% of patients with values above 400 pg/mL will have symptoms. CBC (INCLUDES DIFF/PLT) (639 9) Reviewed date:12/24/2024 10:38:25 AM Interpretation: Performing Lab:STEVEN [facility] [address], [facility] HospitalFfegVG[address] Marty John Notes/Report: NON-FASTING; NON-FASTING; NON-FASTING; NON-FASTING; NON-FAST FASTING:NO FASTING: NO WHITE BLOOD CELL COUNT 6.5 3.8-10.8 Thousand/ uL RED BLOOD CELL COUNT 4.55 3.80-5.10 Million/uL HEMOGLOBIN 15.3 11.7-15.5 g/dL HEMATOCRIT 45.4 35.0-45.0 % MCV 99.8 80.0-100.0 fL MCH 33.6 27.0-33.0 pg MCHC 33.7 32.0-36.0 g/dL For adults, a slight decrease in the calculated MCHC value (in the range of 30 to 32 g/dL) is most likely not clinically significant; however, it should be interpreted with caution in correlation with other red cell parameters and the patient's clinical condition. RDW 13.3 11.0-15.0 % PLATELET COUNT 284 140-400 Thousand/uL MPV 9.5 7.5-12.5 fL ABSOLUTE NEUTROPHILS 3842 8145-6036 cells/uL ABSOLUTE LYMPHOCYTES 2035 850-3900 cells/uL ABSOLUTE MONOCYTES 553 200-950 cells/uL ABSOLUTE EOSINOPHILS 33 15-500 cells/uL ABSOLUTE BASOPHILS 39 0-200 cells/uL NEUTROPHILS 59.1 LYMPHOCYTES 31.3 MONOCYTES 8.5 EOSINOPHILS 0.5 BASOPHILS 0.6 CBC (INCLUDES DIFF/PLT) (639 9) Reviewed date:08/19/2024 04:07:47 PM Interpretation: Performing Lab:STEVEN [facility] [address] [employer], St[facility] HospitalTskfKJ[address] Marty John Notes/Report: NON-FASTING; NON-FASTING; NON-FASTING; NON-FASTING WHITE BLOOD CELL COUNT 6.2 3.8-10.8 Thousand/ uL RED BLOOD CELL COUNT 4.42 3.80-5.10 Million/uL HEMOGLOBIN 14.8 11.7-15.5 g/dL HEMATOCRIT 45.6 35.0-45.0 % MCV 103.2 80.0-100.0 fL MCH 33.5 27.0-33.0 pg MCHC 32.5 32.0-36.0 g/dL For adults, a slight decrease in the calculated MCHC value (in the range of 30 to 32 g/dL) is most likely not clinically significant; however, it should be interpreted with caution in correlation with other red cell parameters and the patient's clinical condition. RDW 11.8 11.0-15.0 % PLATELET COUNT 257 140-400 Thousand/uL MPV 9.6 7.5-12.5 fL ABSOLUTE NEUTROPHILS 3063 9608-9518 cells/uL ABSOLUTE LYMPHOCYTES 2406 850-3900 cells/uL ABSOLUTE MONOCYTES 583 200-950 cells/uL ABSOLUTE EOSINOPHILS 81 15-500 cells/uL ABSOLUTE BASOPHILS 68 0-200 cells/uL NEUTROPHILS 49.4 LYMPHOCYTES 38.8 MONOCYTES 9.4 EOSINOPHILS 1.3 BASOPHILS 1.1 HEMOGLOBIN A1c (496) Reviewed date:08/19/2024 04:07:47 PM Interpretation: Performing Lab:STEVEN Spark [facility]-[employer]al Operating Solutionse[address], SkiApps.comSqozQU[address] Marty John Notes/Report: NON-FASTING; NON-FASTING; NON-FASTING; NON-FASTING HEMOGLOBIN A1c 5.5 <5.7 % of total Hgb For the purpose of screening for the presence of diabetes: <5.7% Consistent with the absence of diabetes 5.7-6.4% Consistent with increased risk for diabetes (prediabetes) > or =6.5% Consistent with diabetes This assay result is consistent with a decreased risk of diabetes. Currently, no consensus exists regarding use of hemoglobin A1c for diagnosis of diabetes in children. According to [place] Diabetes Association (ADA) guidelines, hemoglobin A1c <7.0% represents optimal control in non- diabetic patients. Different metrics may apply to specific patient populations. Standards of Medical Care in Diabetes(ADA). HEMOGLOBIN A1c (496) Reviewed date:12/24/2024 10:38:25 AM Interpretation: Performing Lab:STEVEN Spark [facility]-[employer] Operating Solutionse[address] [employer], ESC CompanyQwbeMF[address] Marty John Notes/Report: NON-FASTING; NON-FASTING; NON-FASTING; NON-FASTING; NON-FAST FASTING:NO FASTING: NO HEMOGLOBIN A1c 5.6 <5.7 % of total Hgb For the purpose of screening for the presence of diabetes: <5.7% Consistent with the absence of diabetes 5.7-6.4% Consistent with increased risk for diabetes (prediabetes) > or =6.5% Consistent with diabetes This assay result is consistent with a decreased risk of diabetes. Currently, no consensus exists regarding use of hemoglobin A1c for diagnosis of diabetes in children. According to [place] Diabetes Association (ADA) guidelines, hemoglobin A1c <7.0% represents optimal control in non- diabetic patients. Different metrics may apply to specific patient populations. Standards of Medical Care in Diabetes(ADA). VITAMIN B12/FOLATE, SERUM PA SILVANO (7065) Reviewed date:08/19/2024 04:07:47 PM Interpretation: Performing Lab:STEVEN Spark [facility]-Environmental Operating Solutionse[address] [employer], Environmental Operating SolutionsObvcRD[address] Marty John Notes/Report: NON-FASTING; NON-FASTING; NON-FASTING; NON-FASTING VITAMIN B12 059 307-0465 pg/mL Please Note: Although the reference range [...] Range Low: <3.4 Borderline: 3.4-5.4 Normal: >5.4 VITAMIN D,25-OH,TOTAL,IA (17 306) Reviewed date:12/24/2024 10:38:26 AM Interpretation: Performing Lab:STEVEN [facility]in [address], Environmental Operating SolutionsIvdsXP[address] Marty John Notes/Report: NON-FASTING; NON-FASTING; NON-FASTING; NON-FASTING; NON-FAST FASTING:NO FASTING: NO VITAMIN D,25-OH,TOTAL,IA 68 30-100 ng/mL Vitamin D Status 25-OH Vitamin D: Deficiency: <20 ng/mL Insufficiency: 20 - 29 ng/mL Optimal: > or = 30 ng/mL For 25-OH Vitamin D testing on patients on D2-supplementation and patients for whom quantitation of D2 and D3 fractions is required, the [facility]) 25-OH VIT D, (D2,D3), LC/MS/MS is recommended: order code 11189 (patients >2yrs). See Note 1 Note 1 For additional information, please refer to http://education.Flavourso ClassBadges.com/faq/FLI639 (This link is being provided for informational/ educational purposes only.) DEXA VERTEBRAL FX ASSESS Reviewed date:04/15/2025 09:33:41 AM Interpretation: Performing Lab: Notes/Report: [address] [place] [address] Name: RUTHY GIRALDO Exam Date: 04/05/2025 : 1960 Age 64 years Gender: F Physician: TOY CARLOS Facility: [facility] Facility HSV: Outpatient Exam: DEXA VERTEBRAL FX ASSESS EXAMINATION: DUAL X-RAY ABSORPTIOMETRY (DXA) FOR BONE MINERAL DENSITY. CLINICAL INDICATION: 64 years old, Female. Postmenopausal. M81.0 - Age-related osteoporosis without current pathological fracture. TECHNIQUE: An axial (e.g., hips, spine) and/or appendicular (e.g., radius) exam was performed, as appropriate, using Schoology densitometer. Images are obtained for bone mineral density measurement and are not obtained for diagnostic purposes. [id number] COMPARISON: None. FINDINGS: Scan quality: Good. LUMBAR SPINE (L1-L4): BMD (in g/cm*2): 1.552. T-score: 3.1. Z-score: 4.4. LEFT FEMORAL NECK: BMD (in g/cm*2): 0.921. T-score: -0.8. Z-score: 0.5. LEFT TOTAL HIP: BMD (in g/cm*2): 1.010. T-score: 0.0. Z-score: 1.1. RIGHT FEMORAL NECK: BMD (in g/cm*2): 0.870. T-score: -1.2. Z-score: 0.1. RIGHT TOTAL HIP: BMD (in g/cm*2): 0.965. T-score: -0.3. Z-score: 0.7. FRAX 10-YEAR PROBABILITY OF FRACTURE: 10-year fracture risk is performed using the [employer] FRAX calculator based on patient-reported risk factors. Major osteoporotic fracture: 14.1%. Hip fracture: 1.3%. IMPRESSION: Osteopenia based on BMD. World Health Organization criteria for BMD impression classify patients as: - Normal (T-score at or above -1.0). - Osteopenia (T-score between -1.0 and -2.5). - Osteoporosis (T-score at or below -2.5). Per the Bone Health and Osteoporosis Foundation the FRAX tool is most useful in patients with low femoral neck bone mineral density (osteopenia). FRAX is Legally authenticated by DILCIA COTA MD 2025-04-05 14:26:39 calculated per request. RECOMMENDATIONS: 1. All patients should optimize their calcium and vitamin D intake. 2. Consider FDA-approved medical therapies in postmenopausal women and men aged 50 years and older, based on the following: - A hip or vertebral (clinical or morphometric) fracture. - T-score less than or equal to -2.5 at the femoral neck or spine after appropriate evaluation to exclude secondary causes. - Low bone density (T-score between -1.0 and -2.5 at the femoral neck or spine) and a 10-year probability of a hip fracture greater than or equal to 3% or a 10-year probability of a major osteoporosis-related fracture greater than or equal to 20% based on FRAX calculation. - Clinician judgment and/or patient preferences may indicate treatment for people with 10-year fracture probabilities above or below these levels. - Further guidance on treatment can be found at the National Osteoporosis Foundation's website bonesource.org. 3. Patients with diagnosis of osteoporosis or at high risk for fracture should have regular bone mineral density tests. For patients eligible for Medicare, routine testing is allowed once every 2 years. The testing frequency can be increased to one year for patients who have rapidly progressing disease, those who are receiving or discontinuing medical therapy to restore bone mass or have additional risk factors. Electronically signed by: Armaan Frias MD 04/09/2025 03:16 PM EDT Dictated By: Armaan Frias Transcribed By: Transcribed On: 04/05/2025 2:26 PM Electronically signed by: Armaan Frias 04/05/2025 Thank you for referring RUTHY GIRALDO to [facility]. Legally authenticated by DILCIA COTA MD 2025-04-05 14:26:39 Medications Medication SIG (Take, Route, Frequency, Duration) Notes Start Date End Date Status Losartan Potassium 25 MG 1 tablet Orally Once a day; Duration: 90 days 06/29/2025 Active Zithromax Z-Adalid 250 MG 2 tablets on the first day, then 1 tablet daily for 4 days orally once a day; Duration: 5 days 06/29/2025 Active Rosuvastatin Calcium 10 MG Take 1 tablet by mouth once daily; Duration: 90 Active dilTIAZem HCl 30 MG 1 tab(s) orally ever y 12 hours; Duration: 90 days Active Diclofenac Sodium 75 MG 1 tab(s) orally BID as needed for arthritis pain; Duration: 30 day(s) 06/15/2020 Active Famotidine 20 MG 1 tab(s) orally 2 times a day; Duration: 30 days 04/05/2020 Active Acyclovir 400 MG 1 tab(s) orally 2 times a day Active Fluticasone Propionate 50 MCG/ACT 1 spray(s) intranasally once a day; Duration: 90 days Active Metamucil Smooth Texture 58.6 % as directed orally once a day; Duration: 7 day(s) Active Sucralfate 1 GM/10ML 10 mL orally 4 times a day (before meals and at bedtime) Active Furosemide 20 MG 3 tabs orally daily; Duration: 90 days Active BEANO *Please review f or potential replacement for e-prescription and drug interaction check* Active MiraLax - DIRECTED ORALLY TWICE DAILY *Please review and pick correct strength-formulati on from VAZATAan options. If intended option is not shown, discontinue and re-order from Quick Search* Active Venlafaxine HCl 37.5 MG Take 1 tablet by mouth twice daily for 30 days; Duration: 30 days Active Pregabalin 225 MG Take 1 capsule by mouth twice daily; Duration: 30 days 07/30/2025 Active busPIRone HCl 10 MG 1 tab(s) orally once daily Active Ozempic (0.25 or 0.5 MG/DOSE) 2 MG/3ML INJECT 0.5MG SUBCUTANEOUSLY ONCE A WEEK; Duration: 28 Active Progesterone 200 MG 1 cap(s) orally once a day; Duration: 10 day(s) Active Linzess 72 MCG 1 cap(s) orally once a day; Duration: 30 day(s) Active Immunizations Vaccine Route Administration Date Status Comme nts SHINGRIX Unknown 11/02/2021 Administered SHINGRIX Unknown 02/07/2022 Administered Prevnar PCV-20 (Pneumococcal conjugate 20) IM Intramuscular 05/05/2024 Administered Influenza-Fluzone 3+years (NON-MEDICARE) IM Intramuscular 07/03/2016 Administered Influenza-Fluzone 3+years (NON-MEDICARE) IM Intramuscular 07/02/2017 Administered Influenza-Fluzone 3+years (NON-MEDICARE) IM Intramuscular 07/01/2018 Administered Hep A Adult 2 Dose IM Intramuscular 09/19/2018 Administere d Fluzone High Dose IM Intramuscular 08/18/2024 Administered FLUZONE 6MO - OLDER IM Intramuscular 08/22/2023 Administer ed Flublok IM Intramuscular 08/16/2020 Administered Flublok IM Intramuscular 06/20/2021 Administered Flublok IM Intramuscular 07/10/2022 Administered Boostrix Unknown 12/22/2024 Administered Arexvy Unknown 08/22/2023 Administered Adacel (Tdap) IM Intramuscular 01/07/2013 Administered Social History Tobacco Use: Social History Observation Description Date Details (start date - stop date) Never Smoker NA - NA Smoking: Question Answer Notes Are you a: nonsmoker Additional Findings: Tobacco Non-User Current no n-smoker Section Notes: Lives with spouse. Lives with spouse. Lives with spouse. Lives with spouse. Lives with spouse. Lives with spouse. Lives with spouse. Lives with spouse. Lives with spouse. Lives with spouse. Lives with spouse. Lives with spouse. Lives with spouse. Lives with spouse. Lives with spouse. Lives with spouse. Lives with spouse. Lives with spouse. Lives with spouse. Lives with spouse. Lives with spouse. Lives with spouse. Lives with spouse. Lives with spouse. Lives with spouse. Lives with spouse. Lives with spouse. Lives with spouse. Lives with spouse. Lives with spouse. Lives with spouse. Lives with spouse. Lives with spouse. Lives with spouse. Lives with spouse. Lives with spouse. Lives with spouse. Lives with spouse. Lives with spouse. Lives with spouse. Lives with spouse. Lives with spouse. Lives with spouse. Lives with spouse. Lives with spouse. Lives with spouse. Lives with spouse. Lives with spouse. Problems Problem Type SNOMED Code ICD Code Onset Dates Problem Status W/U Status Risk Notes Problem Type 2 diabetes mellitus with other specified complication (E11.69) Active confirmed Problem Mixed hyperlipidemia (457624651) Mixed hyperlipidemia (E78.2) Active confirmed Problem Localized, primary osteoarthritis of the hand (278806946) Primary osteoarthritis, left hand (M19.042) Active confirmed Problem Fibromyalgia (737146268) Fibromyalgia (M79.7) Active confirmed Problem Age-related osteoporosis (334992010) Age-related osteoporosis without current pathological fracture (M81.0) Active confirmed Problem Vitamin B12 deficiency (140481384) Vitamin B12 deficiency (E53.8) Active confirmed Problem Arthritis (2417722) Arthritis (M19.90) Active c onfirmed Problem Insomnia (657136351) Insomnia (G47.00) Active c onfirmed Problem Neuropathy (733164007) Neuropathy (G62.9) Active confirmed Problem Gastroesophageal reflux disease (084419212) GERD without esophagitis (K21.9) Active confirmed Problem Essential hypertension (11810820) Hypertension, essential (I10) Active confirmed Problem Lymphedema (27881096) Lymphedema (I89.0) Active confirmed Problem Mammography abnormal (463044579) Abnormal mammogram of right breast (R92.8) Active confirmed Problem Hyperlipidemia (28824052) Hyperlipidemia, unspecified (E78.5) Active confirmed Problem Obesity (333309105) Obesity (BMI 30-39.9) (E66.9) Active confirmed Problem Acquired hypothyroidism (029835007) Acquired hypothyroidism (E03.9) Active confirmed Problem Physical examination (0750285) Routine physical examination (Z00.00) Active confirmed Problem Recurrent major depression in full remission (47290010) Recurrent major depressive disorder, in full remission (F33.42) Active confirmed Problem Type II diabetes mellitus without complication (699410444) Type 2 diabetes mellitus without complication, without long-term current use of insulin (E11.9) Active confirmed Problem Pure hypercholesterolemia (488438481) Pure hypercholesterolemia (E78.00) Active confirmed Problem Artificial knee join t present (268436460302) Status post right knee replacement (Z96.651) Active confirmed Problem Acquired hammer toe of left foot (8479758548454995) Hammertoe of left foot (M20.42) Active confirmed Vital Signs Heart Rate 78 /min 06/29/2025 Temperature 98 degrees Fahrenheit 06/29/2025 Blood pressure diastolic 78 mm Hg 06/29/2025 Height 65 in 06/29/2025 Blood pressure systolic 112 mm Hg 06/29/2025 Weight 170 lbs 06/29/2025 BMI 28.29 kg/m2 06/29/2025 Encounters Encounter [facility] Date [facility] [address] [place], [place] [address] 01/16/2025 Provider Migration Fibromyalgia M79.7 and Encounter for immunization Z23 [facility] [address] [address] 08/18/2024 Toy Carlos Hypertension, essent ial I10 ; Pure hypercholesterolemia E78.00 ; Vitamin B12 deficiency E53.8 ; Fibromyalgia M79.7 ; Type 2 diabetes mellitus with other specified complication E11.69 ; Hyperlipidemia, unspecified E78.5 and Immunization(s) administered Z23 [facility] [address] [address] 11/03/2024 Toy [facility] discharge follow-up Z09 and Status post right knee replacement Z96.[address] [address] 12/22/2024 Toy Carlos Vitamin B12 deficien cy E53.8 ; Pure hypercholesterolemia E78.00 ; Acquired hypothyroidism E03.9 ; Type 2 diabetes mellitus with other specified complication E11.69 ; Mixed hyperlipidemia E78.2 ; Recurrent major depressive disorder, in full remission F33.42 ; Age-related osteoporosis without current pathological fracture M81.0 ; Lymphedema I89.0 ; Hypertension, essential I10 ; GERD without esophagitis K21.9 ; Fibromyalgia M79.7 ; Routine medical exam Z00.00 and Encounter for immunization Z23 [address] [address] 03/30/2025 Toy Carlos Fibromyalgia M79.7 ; Neuropathy G62.9 ; Lymphedema I89.0 ; Hypertension, essential I10 and Age-related osteoporosis without current pathological fracture M81.0 [facility] [address] [address] 06/29/2025 Toy Carlos Acute bronchitis, unspecified organism J20.9 ; Type 2 diabetes mellitus with other specified complication E11.69 ; Hyperlipidemia, unspecified E78.5 ; Acquired hypothyroidism E03.9 and Vitamin B12 deficiency E53.8 [facility] [address] [address] 08/04/2024 [facility] [address] [address] 01/18/2025 Toy Carlos Breast cancer screen ing by mammogram Z12.31 [facility] PRAFUL [address] [place], [place] [address] 02/16/2025 Toy Carlos [facility] [address] [address] 07/30/2025 Toy Carlos Fibromyalgia M79.7 Assessments Encounter Date Diagnosis (ICD Code) Assessment Notes Treatment Notes Treatment Clinical Notes Section Notes 08/18/2024 Hypertension, essent ial (ICD-10 - I10) - chronic, well controlled - continue to monitor, no current pharmcotherapy needs - managed with diet and lifestyle modifications at this time 08/18/2024 Pure hypercholesterolemia (ICD-10 - E78.00) - Chronic - repeat Lipid panel today - continue Rosuvastain daily 11/03/2024 Hospital discharge follow-up (ICD-10 - Z09) Patient was hospitalized from 10/21-10/22/2024 for right-sided total knee arthroplasty. Patient is doing well and has no concerns. She is working with physical therapy and is ambulating with the assistance of a cane. Swelling to right leg is minimal. Patient is receiving adequate pain control. She reports taking OTC tylenol during the day and taking her prescription pain medicine at night for symptom control. Patient has a follow-up with her orthopedic surgeon in 1 week. Follow-up in 1 month for routine medical visit. Problem list verified and reviewed... d/c summary and meds reconciled by me persoanally. 11/03/2024 Status post right kn ee replacement (ICD-10 - Z96.651) See notes below 12/22/2024 Vitamin B12 deficien cy (ICD-10 - E53.8) History of vitamin B12 deficiency. I will check labs personally. 12/22/2024 Pure hypercholesterolemia (ICD-10 - E78.00) Seems to be doing well on statin therapy. Check labs. Make sure LDL is at goal, once again I will review all labs personally 01/18/2025 Breast cancer screen ing by mammogram (ICD-10 - Z12.31) 03/30/2025 Fibromyalgia (ICD-10 - M79.7) Patient has been compliant with our office and [place] regulations r.e. meds. No concerns on my part about diversion or misuse. Labs and Dileep reports reviewed and are appropriate. 03/30/2025 Neuropathy (ICD-10 - G62.9) Stable on pregabalin. No changes in plan 06/29/2025 Type 2 diabetes mellitus with other specified complication (ICD-10 - E11.69) Microalbumin testing shows mild proteinuria. Start low-dose losartan. Her blood pressure is 112 systolic, discussed that if she felt weak would drop down to 1/2 tablet. Follow-up in 6 weeks to reevaluate blood pressure, flu shot, excetra. Check A1c today. All reviewed personally 06/29/2025 Acute bronchitis, unspecified organism (ICD-10 - J20.9) Discussed the etiology and expected course of bronchitis. Discussed the rationale for antibiotics and steroid use and the importance of completeing the prescription as prescribed. Discussed supportive care. Discussed the signs and symptoms of worsening infection/respir atory distress that may indicate need for reassement in clinic/ED. 07/30/2025 Fibromyalgia (ICD-10 - M79.7) 03/30/2025 Lymphedema (ICD-10 - I89.0) Overall lymphedema is doing well. No changes in plan 06/29/2025 Hyperlipidemia, unspecified (ICD-10 - E78.5) 12/22/2024 Acquired hypothyroid ism (ICD-10 - E03.9) Appears euthyroid. Check labs 08/18/2024 Vitamin B12 deficien cy (ICD-10 - E53.8) - recheck Vitamin B12 level today 03/30/2025 Hypertension, essent ial (ICD-10 - I10) Stable blood pressure 12/22/2024 Type 2 diabetes mellitus with other specified complication (ICD-10 - E11.69) Will reevaluate A1c and kidney function 08/18/2024 Fibromyalgia (ICD-10 - M79.7) - reports symptoms fluctuate, no acute pains at this time - well controlled with Lyrica and Venlafaxine - continue current management at this time 06/29/2025 Acquired hypothyroid ism (ICD-10 - E03.9) Check labs to monitor her therapy 06/29/2025 Vitamin B12 deficien cy (ICD-10 - E53.8) 08/18/2024 Type 2 diabetes mellitus with other specified complication (ICD-10 - E11.69) - last Hgb A1c 6.3% - repeating Hgb A1c today - continue Ozempic, tolerating well 12/22/2024 Mixed hyperlipidemia (ICD-10 - E78.2) 03/30/2025 Age-related osteoporosis without current pathological fracture (ICD-10 - M81.0) Has a history of osteoporosis. Does have a DEXA on our records it was normal in 2020. Will redo DEXA scan and assess. 12/22/2024 Recurrent major depressive disorder, in full remission (ICD-10 - F33.42) Doing well on venlafaxine. This is also helped with her fibromyalgia 08/18/2024 Hyperlipidemia, unspecified (ICD-10 - E78.5) 08/18/2024 Immunization(s) administered (ICD-10 - Z23) - tolerated influenza vaccination today, no immediate complications 12/22/2024 Age-related osteoporosis without current pathological fracture (ICD-10 - M81.0) Up-to-date with DEXA and treatment, check vitamin D levels 12/22/2024 Lymphedema (ICD-10 - I89.0) Intermittently attends lymphedema clinic. Currently seems like this is well-managed 12/22/2024 Hypertension, essent ial (ICD-10 - I10) Stable and well-controlled blood pressure 12/22/2024 GERD without esophagitis (ICD-10 - K21.9) No breakthrough symptoms on current medication 12/22/2024 Fibromyalgia (ICD-10 - M79.7) Fibromyalgia is bothering her. Slight increase in Lyrica will be done up to 225 twice daily. Discussed increasing her exercise program now the warmer weather is here and she is excited about doing this. 01/16/2025 Fibromyalgia (ICD-10 - M79.7) 12/22/2024 Routine medical exam (ICD-10 - Z00.00) Up-to-date with colon, mammogram and DEXA scan. Lifelong non-smoker. Depression symptoms well-managed. No recent falls. Fall prevention plan in place, functional status excellent. 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 Vaccines up-to-date, needs Tdap and this will be sent to her pharmacy 12/22/2024 Encounter for immunization (ICD-10 - Z23) 01/16/2025 Encounter for immunization (ICD-10 - Z23) 03/30/2025 Other Patient had a hysterectomy, no indication for further Pap smear Plan Of Treatment Pending Test Test Name Order Date Physical Therapy 08/04/2019 Mammogram : Bilateral 11/21/2023 H-CBC with AUTO DIFF 07/10/2010 H-CMP 07/10/2010 H-BUN 05/24/2014 H-CREATININE SERUM 05/24/2014 H-LIPID PANEL 07/10/2010 H-TSH 07/10/2010 C-CBC 06/03/2015 C-BASIC METABOLIC 06/15/2020 C-CMP 06/03/2015 C-TSH 06/03/2015 C-VITAMIN B12 06/03/2015 C-PTT 06/03/2015 C-PT/INR 06/03/2015 C-VITAMIN D, 25-HYDROXY 06/03/2015 H-CCCP 04/20/2009 H-SS A 04/20/2009 H-SS B 04/20/2009 VENIPUNCT, ROUTINE* 06/03/2015 Physical Therapy : Lymphedema 10/04/2022 Physical Therapy : Lymphedema 07/01/2018 M-Vitamin B12 09/26/2021 M-Vitamin D 25 Hydroxy 09/26/2021 Next Appt Details Provider Name:Toy Carlos, 08/03/2025 10:45:00 AM, [address], [address], Provider Name:Toy Carlos, 08/10/2025 10:15:00 AM, [address], [address], Insurance Providers Payer Name Payer Address Payer Phone Subscriber Number Group Number Insured Name Patient Relationship to Insured Coverage Start Date Coverage End Date [place] [address] [place] [address] [id number] Ruthy Espitia Self - patient is the insured [facility] [address] [place] [address] [phone] [id number] Ruthy Espitia Self - patient is the insured [employer] [address] [place] [address] [address] [place] [address] [phone] ACL Ruthy Espitia Self - patient is the insured Medications Administered Medication Instructions Date of Administration Dosage Notes Kenalog 40mg 01/24/2018 40 mg Triamcinolone Acetonide 40mg Injection 10/10/2018 1 mL Kenalog 05/10/2015 1 Medical (General) History Medical History History ICD Code hormone replacement therapy Esophageal reflux Depressive disorder HLD Arthritis Trigeminal neuralgia Goiter Neuropathy Depressive disorder NOS Colonoscopy 2008: no polyps. Repeat in 2018. Repeated in 2019 with complex polyps - no polyps in 05/2022 normal bone density via DEXA scan 2016 and normal DEXA scan October 2021 - Diagnosis of osteoporosis based on compression fracture but osteopenia on DEXA scan 04/07 Breast US and mamm wit h suspicious lesions in 2020-biopsy was negative for carcinoma -repeat ultrasound in and December - And a normal mammogram again January 2023 Raynaud's syndrome Normal Mammogram 02/05 Surgical History Surgery Date(Month/Year) right hand right elbow right shoulder right knee tummy tuck/ hernia repair x 3 06/2015 Lt knee replacement LT arm RT knee replacement 10/21/2024 colonscopy 05/2025 Hospitalization History Reason Date(Month/Year) [facility]- knee surgery 10/21-06/2025 above
--- OUTSIDE RECORDS SUMMARY | 2025-08-02 16:12 | XMS_ITS | Referral Summary ---
Author Organization [employer] ([place], [place], [place], [place]) Address [address] [place] [address] Care Team Providers Care Guest Associate Name Role Phone Toy Paredes MD Primary Care Provider [phone] Allergies Active Allergy Reactions Criticality Noted Date Comments Sulfa (Sulfonamide Antibiotics) Hives High 04/2009 Medications furosemide (LASIX) 20 MG tablet 2 tabs in AM 1 Tab in PM. Active pregabalin (LYRICA) 50 MG capsule 1 tablet 2 (two) times daily. Active busPIRone (BUSPAR) 10 MG tablet Take 1 tablet (10 mg total) by mouth 2 (two) times daily. 3 Active dilTIAZem (CARDIZEM) 30 MG tablet Take 1 tablet (30 mg total) by mouth 2 (two) times daily. 3 Active Linzess 72 mcg Cap Take 1 capsule (72 mcg total) by mouth in the morning. 2 Active multivitamin per tablet Take 1 tablet by mouth daily. Active cholecalcifero l, vitamin D3, 50 mcg (2,000 unit) Cap Take 2 capsules (4,000 Units total) by mouth daily. Active ascorbic acid (VITAMIN C ORAL) Take by mouth daily OTC 45mg . Active lactobacillus rhamnosus, GG, (CULTURELLE) 10 billion cell capsule Take 1 capsule by mouth daily. Active selenium 200 mcg Tab Take by mouth in the morning. Active esomeprazole (NexIUM) 20 MG capsule Take 1 capsule (20 mg total) by mouth every other day. Active psyllium (METAMUCIL) powder Take by mouth 2 (two) times daily 1 tablespoon ( mixed w/ Miralax). Active polyethylene glycol (GLYCOLAX) 17 gram packet Take by mouth 2 (two) times daily One cap mixed w/ metamucil . Active Missing or Non-Formulary Medication Take 1 capsule by mouth in the morning Neuriva Plus. Active Missing or Non-Formulary Medication Take 1 Gum by mouth 2 (two) times daily Power C. Active Missing or Non-Formulary Medication Take 1 Gum by mouth Vitamin C, Zinc, Elderberry gummy. Active Ozempic 0.25 mg or 0.5 mg (2 mg/3 mL) PnIj Inject subcutaneously once a week Takes on Saturday. 4 Active venlafaxine (EFFEXOR) 37.5 MG tablet Take 1 tablet (37.5 mg total) by mouth 2 (two) times daily. Active melatonin 3 mg tablet Take 5 mg by mouth nightly. Active ondansetron (ZOFRAN) 4 MG tablet Take 1 tablet (4 mg total) by mouth 4 (four) times daily as needed for nausea for up to 60 doses. 30 tablet 5 Active Active Problems Problem Noted Date Diagnosed Date Diverticulosis 10/21/2024 Type 2 diabetes mellitus with other specified co mplication 10/21/2024 Osteoarthritis of right knee 08/26/2024 Irritable bowel syndrome with constipation 08/08 Fibromyalgia 08/08/2023 Gastro-esophageal reflux disease with esophagiti s 08/08/2023 GERD (gastroesophageal reflux disease) 3 Shortness of breath 11/05/2022 Palpitations 11/05/2022 Social History Tobacco Use Types Packs/Day Years Used Date Smoking Tobacco: Never Passive Smoke Exposure: Never Smokeless Tobacco: Never Alcohol Use Standard Drinks/Week Comments Never 0 (1 standard drink = 0.6 oz pur e alcohol) Family and Community Support Answer Anshul e Recorded Help with Day to Day Activities Not on file 11/01/2023 Feeling Lonely or Isolated Not on file 11/01 Educational Attainment Answer Date John rded Speak language other than [place] at home Not on file 11/01/2023 Want help with school or training Not on file 11/01/2023 Substance Use Answer Date Recorded Used prescription meds for non-medical reasons N ot on file 11/01/2023 Used illegal drugs past 12 months Not on file 11/01/2023 Comments No Sex and Gender Information Value Date Recorded Sex Assigned at Not on file Legal Sex Female 5:45 PM CDT Gender Identity Not on file Sexual Orientation Not on file Last Filed Vital Signs Vital Sign Reading Time Taken Comments Blood Pressure 127/72 10/22/2024 12:00 PM EST Pulse 70 10/22/2024 12:00 PM EST Temperature 36.6 C (97.9 F) 10/22/2024 12:00 PM EST Respiratory Rate 18 10/22/2024 4:27 AM EST Oxygen Saturation 96% 10/22/2024 9:30 AM EST Inhaled Oxygen Concentration - - Weight 75.2 kg (165 lb 12.8 oz) 10/21/2024 9:06 AM EST Height 163.8 cm (5' 4.5 ) 10/21/2024 9:06 AM EST Body Mass Index 28.02 10/21/2024 9:06 AM EST Functional Status * Are you deaf or do you have serious difficulty hearing? Answer Date of Assessment Author No 10/22/2024 11:47 AM Kalli Bazan RN * Are you blind or do you have serious difficulty seeing, even when wearing glasses? Answer Date of Assessment Author No 10/22/2024 11:47 AM Kalli Bazan RN * Do you have serious difficulty walking or climbing stairs? Answer Date of Assessment Author Yes 10/22/2024 11:47 AM Kalli Bazan RN * Do you have serious difficulty dressing or bathing? Answer Date of Assessment Author No 10/22/2024 11:47 AM Kalli Bazan RN * Because of a physical, mental, or emotional condition, do you have serious difficulty doing errandsalone such as visiting the doctor? Answer Date of Assessment Author No 10/22/2024 11:47 AM Kalli Bazan RN Mental Status * Because of a physical, mental, or emotional condition, do you have serious difficulty concentrating, remembering, or making decisions? (5 years old or older) Answer Entry Date Author No 10/22/2024 11:47 AM Kalli Bazan RN Plan of Treatment Not on file Medical Devices Implanted Type Area Public Relations Writer Device Identifier Shelf Expiration Date Model / Serial / Lot Cement Bone Smplx 6194-1-001 - [id number] Implanted:Qt y: 1 on 08/12/2023 by Alanna Patel MD at [facility] IMPLANTS Left: Knee TERESA:[employer] 12/11/2024 6194 1 / / [id number] D Cement Bone Smplx 6194-1-001 - [id number] Implanted:Qt y: 2 on 10/21/2024 by Alanna Patel MD at [facility] IMPLANTS Right: Knee TERESA:[employer] [id number] 03/13/2026 / [id number] F Psn Tib Oss Ti 0 Spk Kl L Verna 17-4318-542- 01 - [id number] Implanted:Qt y: 1 on 08/12/2023 by Alanna Patel MD at [facility] TOTAL JOINT CONSTRUCT Left: Knee ALLIE:ALLIE [id number] 04/04/2033 42-5350-0 71- [id number] Patella Cemented 29mm 37-7440-536- 29 - [id number] Implanted:Qt y: 1 on 08/12/2023 by Alanna Patel MD at [facility] [employer] Left: Knee ALLIE:[employer]IE [place] [id number] 05/11/2028 42-5400-0 00- [id number] Psn Art Surf 12 Ve6-7 Ef Lt 81-0370-954- 12 - [id number] Implanted:Qt y: 1 on 08/12/2023 by Alanna Patel MD at [facility] T[employer] Left: Knee ALLIE:[employer]IE [place] [id number] 03/07/2028 42-5121-0 07- / [id number] Psn Fem Cr Pps Cocr Std Sz7 L 58-6161-491- 01 - [id number] Implanted:Qt y: 1 on 08/12/2023 by Alanna Patel MD at [facility] TOTAL [employer]STRU[employer] Left: Knee ALLIE:ALLIE [place] [id number] 01/09/2033 42-5086-0 62- / [id number] Psn Rev Tib Fx Keel Cmt Sz E R 97-8241-344- 02 - [id number] Implanted:Qt y: 1 on 10/21/2024 by Alanna Patel MD at [facility] [employer]STRU[employer] Right: Knee ALLIE:ALLIE [place] [id number] 08/12/2034 42-5360-0 71- / [id number] Psn Fem Cr Cmt Ccr Nrw Sz 8 R 67-3416-633- 02 - [id number] Implanted:Qt y: 1 on 10/21/2024 by Alanna Patel MD at [facility] TOTAL [employer] Right: Knee ALLIE:ALLIE [place] [id number] 07/18/2034 42-5020-0 64- / [id number] Psn Art Surf Mc 10 Ve8-11ef Rt 18-3578-427- 10 - [id number] Implanted:Qt y: 1 on 10/21/2024 by Alanna Patel MD at [facility] [employer] Right: Knee ALLIE:ALLIE [place] [id number] 07/01/2029 42-5221-0 08-10 / [id number] Patella Cemented 29mm 15-3503-486- 29 - [id number] Implanted:Qt y: 1 on 10/21/2024 by Alanna Patel MD at [facility] T[employer]STRU[employer] Right: Knee ALLIE:ALLIE [place] [id number] 08/06/2029 42-5400-0 00-29 / [id number] Procedures Procedure Name Priority Date/Time Associated Diagnosis Comments HEMOGLOBIN A1C STAT 12/17/2023 10:46 AM EST Pre-op testing from Last 3 Months or Most Recently Relevant to Health Maintenance Results * Hemoglobin A1c (12/17/2023 10:46 AM EST) Hemoglobin A1C 6.2 % 12/17/2023 11:48 AM EST [facility] Comment: Hemoglobin A1C levels are related to mean glucose during the preceding 2-3 months. Less than 7% demonstrates glycemic control in diabetic patients. Hemoglobin AlC % Suggested Diagnosis > or = 6.5 Diabetic 5.7 - 6.4 Prediabetic <5.7 Non-diabetic eAVG Glucose 131.24 mg/dL 12/17/2023 11:48 AM EST [facility] Blood Venipuncture / Unknown 12/17/2023 10:46 AM EST 12/17/2023 11:08 AM EST Alanna Patel MD LAB BLOOD ORDERABLES Final Result [facility] [address] [phone] from Last 3 Months or Most Recently Relevant to Health Maintenance Insurance MEDICARE PART A B [facility] Advance Directives For more information, please contact: [phone] * Full Code (Latest Code Status on File) Date Activated Date Inactivated Comments 10/21/2024 2:46 PM 10/22/2024 4:39 PM * Full Code Date Activated Date Inactivated Comments 10/21/2024 8:07 AM 10/21/2024 2:46 PM * Full Code Date Activated Date Inactivated Comments 01/03/2024 7:05 AM 01/03/2024 4:08 PM * Full Code Date Activated Date Inactivated Comments 08/12/2023 4:11 PM 08/13/2023 4:06 PM * Full Code Date Activated Date Inactivated Comments 08/12/2023 10:39 AM 08/12/2023 4:11 PM Healthcare Agents on File Name Relationship Healthcare Agent Relationshi p Communication [place] Kristal Spouse Healthcare Decision-[facility] Care Teams Guest Associate Relationship Specialty Start Date End Date Toy Paredes MD [address] [place] [id number] PCP - General Primary Care 10/31/22
--- OUTSIDE RECORDS SUMMARY | 2025-08-02 16:12 | XMS_ITS | Clinical Summary ---
Author Organization [employer] ([place], [place], [place], [place]) Address [address] [place] [address] Care Team Providers Care Ground Mixer Name Role Phone Toy Paredes MD Primary Care Provider [phone] Allergies Active Allergy Reactions Criticality Noted Date [...] 3 Shortness of breath 11/05/2022 Palpitations 11/05/2022 Family History Medical History Relation Name Comments Lupus Father Diabetes Mother Heart attack Mother Relation Name Status Comments Father Mother Social History Tobacco Use Types Packs/Day Years [...] Date John rded Speak language other than Armenian at home Not on file 11/01/2023 Want [...] Mass Index 28.02 10/21/2024 9:06 AM EST Plan of Treatment Health Maintenance Due Date Last Done Comments Medicare Initial AWV [id number] CT Colonography 1959 Colonoscopy 1959 Colorectal Cancer Screening 1959 DXA SCAN 1959 Diabetic Kidney Health Evalu ation (KED) 1959 FOBT/FIT 1959 Fit-DNA (Cologuard) 1959 Sigmoidoscopy 1959 Diabetic Eye Exam 1969 Depression Screening (12+) 1971 Hepatitis C Screening 1977 DTAP/TDAP/TD VACCINES (1 - Tdap) 1978 Pneumococcal 50+ years (1 of 2 - PCV) 1978 Breast Cancer Screening 1999 Falls Risk Screening 10/14/2024 Hemoglobin A1C 10/21/2024 12/17/2023, 08/08/2023 COVID-19 VACCINE (4 - 2024-2 6 season) 2025 10/19/2021, 02/09/2021, 01/12/2021 Influenza Vaccine (#1) 2025 , 08/16/2020, 07/01/2018, Additional history exists Tobacco Cessation Counseling and Screening (12+) 10/21/2025 10/21/2024 Respiratory Syncytial Virus (RSV) Adult or (1 - 1-dose 75+ series) 2034 Shingles Vaccine (Zoster) Completed 02/07/2022, Medical Devices Implanted Type Area Beauty Operator Apprentice Device Identifier Shelf Expiration Date Model / Serial / Lot Cement Bone Smplx 6194-1-001 - [id number] Implanted:Qt y: 1 on 08/12/2023 by Alanna Patel MD at [facility] IMPLANTS Left: Knee TERESA:[employer] 12/11/2024 6194-1-00 1 / / [id number] Cement Bone Smplx 6194-1-001 - [id number] Implanted:Qt y: 2 on 10/21/2024 by Alanna Patel MD at [facility] IMPLANTS Right: Knee [employer]A:[employer] [id number] 03/13/2026 6194-1-00 / [id number] F Psn Tib Oss Ti 0 Spk Kl L Verna 26-8329-948- 01 - [id number] Implanted:Qt y: 1 on 08/12/2023 by Alanna Patel MD at [facility] TOTAL JOINT CONSTRUCT Left: Knee ALLIE:ALLIE [id number] 04/04/2033 42-5350-0 71- / [id number] Patella Cemented 29mm 61-9180-735- 29 - [id number] Implanted:Qt y: 1 on 08/12/2023 by Alanna Patel MD at [facility] TOTAL JOINT CONSTRUCT Left: Knee ALLIE:ALLIE [id number] 05/11/2028 42-5400-0 00- / / [id number] Psn Art Surf Mc 12 Ve6-7 Ef Lt 90-0647-250- 12 - [id number] Implanted:Qt y: 1 on 08/12/2023 by Alanna Patel MD at [facility] TOTAL JOINT CONSTRUCT Left: Knee ALLIE:ALLIE [place] [id number] 03/07/2028 42-5121-0 07-12 / [id number] Psn Fem Cr Pps Cocr Std Sz7 L 55-3120-118- 01 - [id number] Implanted:Qt y: 1 on 08/12/2023 by Alanna Patel MD at [facility] TOTAL JOINT CONSTRUCT Left: Knee ALLIE:ALLIE [place] [id number] 01/09/2033 42-5086-0 62-01 / / [id number] Psn Rev Tib Fx Keel Cmt Sz E R 22-9552-851- 02 - [id number] Implanted:Qt y: 1 on 10/21/2024 by Alanna Patel MD at [facility] TOTAL JOINT CONSTRUCT Right: Knee ALLIE:ALLIE [place] [id number] 08/12/2034 42-5360-0 71-02 / / [id number] Psn Fem Cr Cmt Ccr Nrw Sz 8 R 73-5150-605- 02 - [id number] Implanted:Qt y: 1 on 10/21/2024 by Alanna Patel MD at [facility] TOTAL JOINT CONSTRUCT Right: Knee ALLIE:ALLIE [place] [id number] 07/18/2034 42-5020-0 64-02 / / [id number] Psn Art Surf 10 Ve8-11ef Rt 46-6210-097- 10 - [id number] Implanted:Qt y: 1 on 10/21/2024 by Alanna Patel MD at [facility] TOTAL JOINT CONSTRUCT Right: Knee ALLIE:ALLIE [place] [id number] 07/01/2029 42-5221-0 08-10 / / [id number] Patella Cemented 29mm 22-0795-550- 29 - [id number] Implanted:Qt y: 1 on 10/21/2024 by Alanna Patel MD at [facility] TOTAL JOINT CONSTRUCT Right: Knee ALLIE:ALLIE [place] [id number] 08/06/2029 42-5400-0 [id number] Procedures Procedure Name Priority Date/Time Associated Diagnosis Comments HEMOGLOBIN A1C STAT 12/17/2023 10:46 AM EST Pre-op testing from Last 3 Months or Most Recently Relevant to Health Maintenance Results * Hemoglobin A1c (12/17/2023 10:46 AM EST) Hemoglobin A1C 6.2 % 12/17/2023 11:48 AM EST [facility] Comment: Hemoglobin A1C levels are related to mean glucose during the preceding 2-3 months. Less than 7% demonstrates glycemic control in diabetic patients. Hemoglobin AlC % Suggested Diagnosis > or = 6.5 Diabetic 5.7 - 6.4 Prediabetic <5.7 Non-diabetic eAVG Glucose 131.24 mg/dL 12/17/2023 11:48 AM EST [facility] Blood Venipuncture / Unknown 12/17/2023 10:46 AM EST 12/17/2023 11:08 AM EST Alanna Patel MD LAB BLOOD ORDERABLES Final Result Performing Organization Address City/State/[facility] Co de Phone Number [facility] [address] [phone] from Last 3 Months or Most Recently Relevant to Health Maintenance Insurance MEDICARE PART A B BLUE CROSS/BLUE SHIELD Advance Directives For more information, please contact: [phone] * Full Code (Latest Code Status on [...] Name Relationship Healthcare Agent Relationshi p Communication Edgar Giraldo Spouse Healthcare Decision-M [facility] Care Teams Ground Mixer Relationship Specialty Start Date End Date Toy Paredes MD [address] [place] [address] PCP - General Primary Care 10/31/22
--- OUTSIDE RECORDS SUMMARY | 2025-08-02 16:13 | XMS_ITS | Clinical Summary ---
Author Organization [facility] Address [address] [place] [address] Care Team Providers Care Print Machine Operator Name Role Phone Toy Paredes MD Primary Care Provider [phone] Allergies Active Allergy Reactions Criticality Noted Date Comments Sulfa Antibiotics Hives Medium 02/14/2018 Medications propranolol (INDERAL) 20 MG tablet 8 Active furosemide (LASIX) 20 MG tablet 8 Active diltiaZEM (CARDIZEM) 30 MG tablet 8 Active fluticasone (FLONASE) 50 MCG/ACT nasal spray 8 Active IGNITER CAPPER Thyroid 30 MG tablet 1 Active Linzess 72 MCG capsule capsule 1 Active Progesterone (PROMETRIUM) 200 MG capsule Take 1 capsule by mouth every night at bedtime. 2 Active SSD 1 % cream 2 Active vitamin D3 125 MCG (5000 UT) capsule capsule Take 1 capsule by mouth Daily. Active busPIRone (BUSPAR) 10 MG tablet 3 Active neomycin-polymy catrachita-dexamethaso ne (MAXITROL) 3.5-15529-8.1 ophthalmic suspension 3 Active Ozempic, 0.25 or 0.5 MG/DOSE, 2 MG/3ML solution pen-injector Inject under the skin into the appropriate area as directed Every 7 (Seven) Days. 4 Active melatonin 3 MG tablet Take 5 mg by mouth Daily. Active esomeprazole (nexIUM) 20 MG capsule Take 1 capsule by mouth. Active acyclovir (ZOVIRAX) 400 MG tablet Take 1 tablet by mouth Every 4 (Four) Hours While Awake. Take no more than 5 doses a day. Active rosuvastatin (CRESTOR) 10 MG tablet Take 1 tablet by mouth Daily. Active famotidine (PEPCID) 20 MG tablet Take 1 tablet by mouth 2 (Two) Times a Day. Active ondansetron (ZOFRAN) 4 MG tablet Take 1 tablet every 8 hours by oral route as directed for 30 days, for N/V. 5 Active psyllium (Metamucil Smooth Texture) 58.6 % powder Daily. Active polyethylene glycol (MiraLax) 17 GM/SCOOP powder DIRECTED ORALLY TWICE DAILY Active pregabalin (LYRICA) 225 MG capsule Every 12 (Twelve) Hours. 5 Active venlafaxine (EFFEXOR) 37.5 MG tablet Every 12 (Twelve) Hours. Active Active Problems Problem Noted Date Diagnosed Date Arthritis of left foot 02/14/2018 Family History Medical History Relation Name Comments Diabetes Mother Darrell Heart attack Mother Darrell Hypertension Mother Darrell Osteoarthritis Mother Darrell Relation Name Status Comments Mother Darrell Social History Tobacco Use Types Packs/Day Years Used Date Smoking Tobacco: Never Passive Smoke Exposure: Past Smokeless Tobacco: Never Tobacco Cessation:Counseling Given: Not Answered Alcohol Use Standard Drinks/Week Comments Yes 1 (1 standard drink = 0.6 oz pur e alcohol) Occasional Comments Unknown Sex and Gender Information Value Date Recorded Sex Assigned at Not on file Legal Sex Female 11:03 AM EDT Gender Identity Not on file Sexual Orientation Not on file Last Filed Vital Signs Vital Sign Reading Time Taken Comments Blood Pressure 126/82 04/09/2025 9:27 AM EDT Pulse 83 02/06/2021 10:51 AM EDT Temperature 37.4 C (99.4 F) 10/05/2018 12:44 PM EST Respiratory Rate 16 10/05/2018 12:44 PM EST Oxygen Saturation 98% 04/18/2020 11:06 AM EDT Inhaled Oxygen Concentration - - Weight 78 kg (172 lb) 04/09/2025 9:27 AM EDT Height 165.1 cm (5' 5 ) 04/09/2025 9:27 AM EDT Body Mass Index 28.62 04/09/2025 9:27 AM EDT Plan of Treatment Upcoming Encounters Date Type Department Care Team (Late st Contact Info) Description 10/11/2025 10:00 AM EST Office Visit [facility] [address] [address] Sandy Vargas MD [address] [address] Health Maintenance Due Date Last Done Comments DXA SCAN 1959 DIABETIC EYE EXAM 1969 DIABETIC FOOT EXAM 1969 URINE MICROALBUMIN-CREATININ E RATIO (uACR) 1969 MAMMOGRAM 1999 COLOGUARD 2004 COLON CANCER SCREENING 5 YEA R SIGMOIDOSCOPY 2004 COLONOSCOPY 2004 [address] CAN[address]ER SCREENING [address] COLONOGRAPHY 2004 FECAL OCCULT BLOOD TEST 2004 FIT Testing (1 year) 2004 ANNUAL WELLNESS VISIT 02/14/2018 HEPATITIS C SCREENING 02/14/2018 HEMOGLOBIN A1C 06/18/2024 12/17/2023, 03/0 02/2024, 08/08/2023, Additional history exists INFLUENZA VACCINE 05/14/2025 08/18/2024, , 06/20/2021, Additional history exists COVID-19 Vaccine (5 - Pfizer risk 2023- season) 2025 09/09/2024, 10/19/2021, 02/09/2021, Additional history exists TDAP/TD VACCINES (2 - Td or Tdap) 12/22/2034 025 ZOSTER VACCINE Completed 02/07/2022, 11/02/2021 Pneumococcal Vaccine 50+ Completed 05/05/2024 Insurance [facility] CR[employer] BLUE SHIELD PPO Member Subscriber Plan / Payer (Ef fective 2016-Present) Name:Ruthy Giraldo Relation to Subscriber:Self Name:Ruthy Giraldo Payer ID:[id number] (NAIC) Type:Not on file Address: [facility] [address] [place] [id number] MEDICARE A & B Member Subscriber Plan / Payer ( fective 2015-Present) Name:Ruthy Giraldo Member ID:[id number] Relation to Subscriber:Self Name:Ruthy Giraldo Subscriber ID:[id number] Payer ID:[id number] Group ID:Not on file Type:Not on file Address: [facility] [id number] BLUE CROSS Care Teams Print Machine Operator Relationship Specialty Start Date End Date Toy Paredes MD [address] [facility] [address] [place] [address] PCP - General Adolescent Medicine 02/14/18
--- NOTE | 2025-08-02 16:14 | ECG_ITS ---
APPROVED REPORT Exam: Resting ECG HR:115 bpm ECG Measurements Heart Rate 115 AXES ME 174 P 52 QRSd 72 QRS -54 QT 272 T 63 QTc 340 Conclusion Sinus tachycardia at [address] or T wave changes concerning for ischemia Electronically signed by : Kasey Newberry, 08/03/2025 00:37:55
--- NOTE | 2025-08-02 16:39 | CT_ITS ---
PROCEDURE INFORMATION: Exam: CTA Chest With Contrast Exam date and time: 08/02/2025 5:19 PM Age: 65 years old Clinical indication: Injury or trauma; Fall; Blunt trauma (contusions or hematomas); Additional info: Tachycardia, SOB, right upper extremity edema TECHNIQUE: Imaging protocol: Computed tomographic angiography of the chest with contrast. Exam focused on the arteries. 3D rendering (Not supervised by radiologist): MIP and/or 3D reconstructed images were created by the technologist. Radiation optimization: All CT scans at this facility use at least one of these dose optimization techniques: automated exposure control; mA and/or kV adjustment per patient size (includes targeted exams where dose is matched to clinical indication); or iterative reconstruction. Contrast material: ISOVUE 370; Contrast volume: 70 ml; Contrast route: INTRAVENOUS (IV); COMPARISON: CR CXR2 XR chest AP 09/10/2018 7:33 PM FINDINGS: Pulmonary arteries: Satisfactory opacification of the pulmonary arteries. No acute pulmonary embolus appreciated. Aorta: No thoracic aortic aneurysm or dissection is appreciated. Lungs: Scattered calcified granulomata within the lungs. Mild atelectasis within the lower left lung both anteriorly and posteriorly. No focal consolidation appreciated. Moderate eventration of the right hemidiaphragm. 8 x 6 mm triangular shaped semi solid nodule subpleural anterolateral right upper lobe. Pleural spaces: No pneumothorax or pleural effusion. Heart: Lkhw-fl-kybsuooh calcification proximal LAD.. No cardiomegaly. No pericardial effusion. Lymph nodes: Few calcified mediastinal and hilar lymph nodes. No dominant mediastinal or hilar adenopathy appreciated. Liver: Fatty infiltration of the liver. Approximate 5.2 x 4.5 cm cyst medial spleen with a thin septation. Bones/joints: Thoracic spondylosis. No acute compression fracture identified. There are degenerative changes involving the glenohumeral joints. There is a degenerative ossification adjacent to the anterior right humeral head. There is a right shoulder joint effusion. Soft tissues: Dystrophic calcifications right breast suggesting previous trauma or surgery. IMPRESSION: 1. No acute pulmonary embolus identified. 2. No thoracic aortic aneurysm or dissection appreciated. 3. Ffqr-tg-vaugewus calcification proximal LAD. 4. No focal consolidation, pneumothorax or pleural effusion identified. Moderate eventration right hemidiaphragm. 5. 8 x 6 mm semi solid nodule anterolateral right upper lobe. Follow-up noncontrast CT chest in 3-6 months recommended as per Fleischner society guidelines. 6. Degenerative changes right shoulder with a right shoulder joint effusion. 7. Other findings above.
--- NOTE | 2025-08-02 16:39 | CA_ITS ---
FINAL REPORT TECHNIQUE: Graded compression, spectral analysis and ultrasound images of the venous system of the upper extremity were obtained. CLINICAL HISTORY: RT FOREARM SWELLING AND ERYTHEMA X 1 DAY COMPARISON: None FINDINGS: The jugular vein, subclavian vein, axillary vein, brachial vein, cephalic vein and basilic venous system are normal, fully compressible and demonstrate no evidence of thrombosis. IMPRESSION: No evidence of thrombosis of the venous system of the right upper extremity. Reviewed, Interpreted and Dictated by Julita Miller MD Transcribed by Milka Loo Authenticated and [facility]
[2025-08-02 16:51] LABS: Hematocrit 41.8 % (37.0-47.0); Hemoglobin 13.9 g/dL (12.2-16.2); Immature Granulocytes % 1.1 %; Mean Corpuscular HGB Conc 33.3 g/dL (31.8-35.4); Mean Corpuscular Hemoglobin 31.7 pg (27.0-31.2); Mean Corpuscular Volume 95.2 fl (81-99); Nucleated Red Blood Cells % 0 %; Platelet Count 229 K/mm3 (142-424); Red Blood Count 4.39 M/mm3 (4.20-5.40); Red Cell Distribution Width-SD 45.5 fL; White Blood Count 23.8 K/mm3 (4.8-10.8)
--- NOTE | 2025-08-02 16:51 | CT_ITS ---
PROCEDURE INFORMATION: Exam: CT Abdomen And Pelvis With Contrast Exam date and time: 08/02/2025 5:19 PM Age: 65 years old Clinical indication: Abdominal tenderness; Additional info: Abdominal discomfort, generalized TECHNIQUE: Imaging protocol: Computed tomography of the abdomen and pelvis with contrast. 3D rendering (Not supervised by radiologist): MIP and/or 3D reconstructed images were created by the technologist. Radiation optimization: All CT scans at this facility use at least one of these dose optimization techniques: automated exposure control; mA and/or kV adjustment per patient size (includes targeted exams where dose is matched to clinical indication); or iterative reconstruction. Contrast material: ISOVUE; Contrast volume: 70 ml; Contrast route: IV; COMPARISON: CT - ABDPELW CT abdomen pelvis w con 09/10/2018 7:22 PM FINDINGS: Lungs: Calcified granulomata within the lung bases. Scattered basilar atelectasis. No focal consolidation appreciated. Liver: Normal-size liver with diffuse fatty infiltration and scattered calcified granulomata. Gallbladder and biliary ducts: Surgical clips gallbladder fossa. Normal common duct. Pancreas: Normal. No ductal dilation. Spleen: Normal-size spleen with calcified granulomata. There is a 5.2 x 4.7 cm cyst enlarging the medial aspect of the spleen that is a new finding. There is a thin central septation. There is no abnormal enhancement identified. There is no fluid surrounding the spleen. There is a linear calcification adjacent to the inferior medial aspect of the spleen which may be vascular or associated with the splenic capsule which was present previously. Adrenal glands: Normal. No mass. Kidneys and ureters: Normal-size kidneys which demonstrate no evidence of hydronephrosis. Symmetric enhancement with very mild perinephric stranding. 1.7 cm low-attenuation mass lower pole right kidney with Hounsfield unit measurements of less than 20 most consistent with a cyst. No follow-up required. Stomach and bowel: Fluid-filled stomach with some ingested dense material and mild mucosal enhancement. No significant small bowel distension. Mild small bowel wall enhancement. Mobile cecum that is directed anteriorly. The ascending colon is fluid-filled. There are air-fluid levels within the transverse colon. The left colon is mainly decompressed. There are a few left-sided diverticuli. There is no acute diverticulitis. Appendix: The appendix is not visualized. Possible previous appendectomy. No inflammation is seen adjacent to the tip of the cecum. Intraperitoneal space: Unremarkable. No free air. No significant fluid collection. Vasculature: Mild atherosclerotic plaquing abdominal aorta with no aneurysm appreciated. No significant narrowing of the proximal celiac axis or superior mesenteric artery is appreciated. Lymph nodes: Unremarkable. No enlarged lymph nodes. Urinary bladder: No abnormality of the bladder appreciated. Reproductive: Surgical absence of the uterus. Neither ovary is visualized. Bones/joints: No acute bony abnormality appreciated. Facet joint arthritis lumbar spine. Calcification of the disc at L4-L5. Soft tissues: There are subcutaneous calcifications within the upper left pelvic wall in a left paramedian location that is probably the location of a previous incision. There are a few coarse calcifications within the right breast which may be the result of previous surgery or trauma. IMPRESSION: 1. Findings most suggestive of a mild diffuse gastroenteritis. There is no obstruction or evidence of acute diverticulitis appreciated. 2. New 5.2 x 4.7 cm cyst medial aspect of the spleen with a central thin septation. No surrounding fluid or enhancement. No follow-up required. 3. Fatty infiltration of the liver. 4. Previous cholecystectomy, hysterectomy and probable appendectomy. 5. Other findings above. COMMENTS: Consistent with the [employer]'s Incidental Findings Committee white paper (J Am Pal Radiol 2018): Any incidental renal lesion less than 1 cm or classified as too small to characterize, or any incidental cystic renal lesion characterized as simple-appearing, is likely benign. No follow-up imaging is recommended for these lesions per consensus recommendations based on imaging criteria.
[2025-08-02 16:56] LABS: Alanine Aminotransferase 29 U/L (12-78); Albumin Level 4.2 g/dl (3.5-5.0); Albumin/Globulin Ratio 1.4 (1.1-1.8); Alkaline Phosphatase 83 U/L (38-126); Anion Gap 16.3 mEq/L (5-15); Aspartate Amino Transferase 37 U/L (14-36); Bilirubin,Total 1.5 mg/dl (0.2-1.3); Blood Urea Nitrogen 12 mg/dl (7-17); Calcium 8.8 mg/dl (8.4-10.2); Carbon Dioxide 28 mmol/L (22.0-30.0); Chloride 93 mmol/L (98-107); Creatinine Clearance Estimated 65 mL/min (50-200); Creatinine,Serum 0.80 mg/dl (0.52-1.04); Estimated Glomerular Filt Rate 72 ml/min (>60); GFR (African American) 87 ML/MIN (>60); Globulin 3.1 g/dL (1.3-3.2); Glucose 163 mg/dl (74-100); Potassium 3.3 mmoL/L (3.5-5.1); Sodium 134 mmol/L (136-145); Total Protein,Serum 7.3 g/dl (6.3-8.2)
[2025-08-02] MEDS: ONDANSETRON 4MG/2ML VIAL 4 MG IV (17:00)
[2025-08-02 17:02] LABS: C-Reactive Protein 124.6 mg/L (0-4); D-Dimer 0.98 ug/mL (0.0-0.5)
[2025-08-02 17:10] LABS: Troponin I < 0.01 ng/ml (0.00-0.034)
[2025-08-02] MEDS: 0.9 % SODIUM CHLORIDE 1000ML 1,000 ML 999 ML IV (17:12)
[2025-08-02 17:16] LABS: Coronavirus 19, PCR Not Detected (NotDetected); Influenza A, PCR Not Detected (NotDetected); Influenza B, PCR Not Detected (NotDetected)
[2025-08-02] MEDS: SODIUM CHLORIDE 0.9% 10ML SYR (RAD ONLY) 10 ML IV (17:27)
[2025-08-02] MEDS: 0.9 % SODIUM CHLORIDE 50 ML VIAL IV (17:27)
[2025-08-02] MEDS: IOPAMIDOL-370 (76%);100ML BOTTLE 70 ML IV (17:27)
[2025-08-02 17:40] LABS: RBC Morphology Normal; Total Cells Counted 100
[2025-08-02] MEDS: VANCOMYCIN/WATER FOR INJ (PEG) 1.5 GM/300 ML PIGGYBACK IV (18:38)
--- NOTE | 2025-08-02 19:47 | EXP.HP ---
History of Present Illness *Admission Date: 08/02/25 *Reason for visit:: Right arm pain, swelling *History of present illness: Ruthy Giraldo is a 65-year-old female with a medical history significant for hypertension, fibromyalgia, anxiety/depression who presents with progressive right forearm swelling, pain since this morning. Patient states she noticed it this morning after getting out of the shower, and was initially localized in the ventral mid forearm and spread in all directions. Per her and her at bedside, they state it continues to spread even after admission approximately. Patient states she cannot think of anything that could have caused this including trauma, skin breakdown, changes in topicals including lotion/soap/etc. or jewelry, medications. Denies fever/chills, chest pain, shortness of breath. Upon further inquiry, patient does note that she was bitten by her cat a few days ago in her ventral forehead. There also seems to be small area of skin breakdown with scabbing over her ventral wrist. She does state that there is 6/10 pain with extension of her wrist but not significant. Denies pain in other joints. No drainage. Workup in the ED significant for WBC 23.8 with neutrophilic predominance, D-dimer 0.98, total bilirubin 1.5, CRP 124. Given elevated D-dimer, CTA chest and venous Doppler were obtained which did not reveal VTE's. Patient also complained about mild abdominal pain with CT abdomen/pelvis suggesting gastroenteritis and new splenic cyst. She was started on vancomycin, ceftriaxone, and given 1 L LR bolus. Given this presentation, ED provider discussed case with me and I decided to admit patient for cellulitis versus dermatitis. [facility] Disclaimer: The information contained in this section may have been updated after the patient was seen, as this information can be updated by other users. Medical History History of gastroesophageal reflux (GERD) Surgical History Colonoscopy planned History of tubal ligation History of hysterectomy History of cholecystectomy History of appendectomy Family History (Updated 08/02/25 @ 21:33 by Ning Frias RN) Father Lupus Other No significant family history Social History (Updated 08/02/25 @ 21:34 by Ning Frias RN) Smoking Status: Never smoker alcohol intake: never substance use type: denies use current occupational status: retired Travel in the last 8 weeks?: None household members: spouse housing: house current occupational exposures/hazards: No caffeine: Yes Have you lived/traveled outside [place] in past 30 days?: No Contact w/someone who lives/traveled outside US past 30 days?: No Exposure to someone with infectious disease in past 14 days?: No Do you have a fever (greater than 100.4 F or 38 C)?: No Have you tested positive for COVID-19?: No Exposed to someone with COVID-19 in past 14 days?: No Do you have a sore throat?: No Do you have a cough?: No Do you have any weakness?: No Do you have any diarrhea?: No Are you experiencing any unusual bleeding?: No Do you have any muscle aches/pain?: No Do you have any abdominal pain?: No Are you experiencing loss of taste or smell?: No Other Medical History Have you received the Flu Vaccine for this season: Yes Have you received the Pneumonia Vaccine: No Meds Home Medications and Allergies Home Medications ?Medication ?Instructions ?Recorded ?Confirmed ?Type furosemide 20 mg tablet 20 mg PO TID Edema 10/15/17 08/02/25 History diltiazem HCl 30 mg tablet 30 mg PO DAILY High blood pressure 10/01/19 08/02/25 History famotidine 20 mg tablet 20 mg PO BID Reflux/Acid reflux 05/22/22 08/02/25 History uxwrgjmv-llc-uzkvm acid 0.4 1 each PO DAILY supplement' 05/22/22 08/02/25 History mg-lycopene 300 mcg-lutein 250 mcg tablet ondansetron HCl 4 mg tablet 4 mg PO NEEDED PRN . 01/11/25 08/02/25 History pregabalin 200 mg capsule (Lyrica) 225 mg PO BID fibromyalgea 01/11/25 08/02/25 History rosuvastatin 10 mg tablet 10 mg PO HS 01/11/25 08/02/25 History semaglutide 0.25 mg or 0.5 mg (2 0.5 mg SQ WEEKLY 01/11/25 08/02/25 History mg/3 mL) subcutaneous pen injector (Ozempic) venlafaxine 37.5 mg tablet 37.5 mg PO DAILY 01/11/25 08/02/25 History linaclotide 72 mcg capsule 72 mcg PO DAILY . #90 caps 05/03/25 08/02/25 Rx (Linzess) buspirone 10 mg tablet 10 mg PO BID 08/02/25 08/02/25 History New Prescriptions to Start Prescriptions: Allergies Allergy/AdvReac Type Severity Reaction Status Date / Time Sulfa (Sulfonamide Allergy Unknown I-HIVES Verified 05/20/25 12:56 Antibiotics) (SULFA (SULFONAMIDE ANTIBIOTICS)) Exam Data for Last 24 hours Vital signs and Labs for Last 24 Hours: Temp Pulse Resp BP Pulse Ox O2 Del Method 98.7 F 102 H 18 122/78 93 L Room Air 08/02/25 16:01 08/02/25 18:00 08/02/25 16:01 08/02/25 18:00 08/02/25 18:00 08/02/25 16:01 Laboratory Results - last 24 hr 08/02/25 16:15: WBC 23.8 H*, RBC 4.39, Hgb 13.9, Hct 41.8, MCV 95.2, MCH 31.7 H, MCHC 33.3, RDW 12.9, Plt Count 229, MPV 9.5, Neut % (Auto) 80.5 H, Lymph % (Auto) 10.1, [place] % (Auto) 7.8, Eos % (Auto) 0.1, Baso % (Auto) 0.4, Neut # (Auto) 19.2 H, Lymph # (Auto) 2.4, [place] # (Auto) 1.9 H, Eos # (Auto) 0.0, Baso # (Auto) 0.1, Total Counted 100, Neutrophils % (Manual) 85 H, Band Neutrophils % 3.0, Lymphocytes % (Manual) 9 L, Monocytes % (Manual) 3, Platelet Estimate Normal, RBC Morphology Normal, D-Dimer 0.98 H, Sodium 134 L, Potassium 3.3 L, Chloride 93 L, Carbon Dioxide 28, Anion Gap 16.3 H, BUN 12, Creatinine 0.80, Estimated Creat Clear 65, Estimated GFR 72, Est GFR ( Amer) 87, Glucose 163 H, Calcium 8.8, Total Bilirubin 1.5 H, AST 37 H, ALT 29, Alkaline Phosphatase 83, Troponin I < 0.01, C-Reactive Protein 124.6 H, Total Protein 7.3, Albumin 4.2, Globulin 3.1, Albumin/Globulin Ratio 1.4 08/02/25 16:56: SARS-CoV-2 (PCR) Not detected, Influenza A Untype (PCR) Not detected, Influenza Type B (PCR) Not detected I & O for Last 24 hours: Intake & Output 07/30/25 07/31/25 08/01/25 08/02/25 23:59 23:59 23:59 23:59 Intake Total 1100 / 1100 Balance 1100 / 1100 Weight 74.843 kg Constitutional Constitutional: no acute distress *Routine HEENT Exam Head: Present normocephalic Eye: Present EOMI and PERRL ENT: Present mucous membranes moist *Routine Neck Exam Neck: Present supple; Absent lymphadenopathy *Routine Respiratory Exam Respiratory: Present CTA bilaterally *Routine Cardiovascular Exam Cardiovascular: Present RRR *Routine Abdominal Exam Abdominal: Present soft and normoactive bowel sounds; Absent tenderness *Routine Rectal Exam Rectal:: deferred *Routine Genitalia Exam Genitalia:: deferred *Routine Extremities Exam Extremities: Present edema; Absent cyanosis or clubbing *Routine Skin Exam Skin: Present warm and rash *Routine Neurological Exam Neurological: Present alert and oriented X3 Assessment and Plan *Assessment and plan (1) Cellulitis of right arm: Status: Acute Category: Medical Code(s): L03.113 - Cellulitis of right upper limb Plan Ruthy Giraldo is a 65-year-old female with a medical history significant for hypertension, fibromyalgia, anxiety/depression who presents with progressive right forearm swelling, pain since this morning. Patient states she noticed it this morning after getting out of the shower, and was initially localized in the ventral mid forearm and spread in all directions. Per her and her at bedside, they state it continues to spread even after admission approximately. Patient states she cannot think of anything that could have caused this including trauma, skin breakdown, changes in topicals including lotion/soap/etc. or jewelry, medications. Denies fever/chills, chest pain, shortness of breath. Upon further inquiry, patient does note that she was bitten by her cat a few days ago in her ventral forehead. There also seems to be small area of skin breakdown with scabbing over her ventral wrist. She does state that there is 6/10 pain with extension of her wrist but not significant. Denies pain in other joints. No drainage. Workup in the ED significant for WBC 23.8 with neutrophilic predominance, D-dimer 0.98, total bilirubin 1.5, CRP 124. Given elevated D-dimer, CTA chest and venous Doppler were obtained which did not reveal VTE's. Patient also complained about mild abdominal pain with CT abdomen/pelvis suggesting gastroenteritis and new splenic cyst. She was started on vancomycin, ceftriaxone, and given 1 L LR bolus. Given this presentation, ED provider discussed case with me and I decided to admit patient for cellulitis versus dermatitis. #Sepsis #Cellulitis vs dermatitis vs vasculitis ? Presents with progressive right forearm swelling, redness, pain. Does endorse a cat bite few days ago on the ventral hand, but no other specific trigger that patient can recall. ? Initial WBC 23.8, heart rate in the 100s. CRP 124.6. ? On exam, there is ecchymosis overlying some erythema scattered on ventral forearm. Tender to touch, but no induration or drainage. Could represent cellulitis with hemorrhage, vasculitis, or dermatitis. ? Started vancomycin, Zosyn 3.375 every 6 hours. ? Ordered IV Solu-Medrol 60 mg once. ? Follow-up blood cultures. ? Closely monitor evolvement, borders. ? Follow-up morning CBC, CRP. #Abdominal pain #Gastroenteritis #Hyperbilirubinemia ? Diffuse mild abdominal pain/discomfort. Denies diarrhea, constipation. ? CT abdomen/pelvis suggestive of gastroenteritis. Total bilirubin 1.5. Continue to monitor. ? Continue conservative therapy. #Splenic cyst ? New 5.2 x 4.7 cm cyst medial aspect of the spleen with a central thin septation. ? No focal tenderness. Given size, at risk of rupturing. ? Plan to refer to general surgery for further evaluation and management. #Hypertension ? Continue home medications once reconciled. #Fibromyalgia ? Continue home pregabalin 225mg twice daily. #Anxiety/depression ? Continue home medications once reconciled. Full code DVT prophylaxis: IPC's in the setting of large splenic cyst
--- NOTE | 2025-08-02 20:25 | PC.NURSE ---
Report called to Ning BARNES
[2025-08-02 20:30] LABS: Troponin I < 0.01 ng/ml (0.00-0.034)
--- NOTE | 2025-08-02 20:45 | PC.NURSE ---
pt arrived to floor via wheelchair from ED @2038
[2025-08-02 20:51] LABS: Procalcitonin 1.13 ng/mL (0.0-2.0)
[2025-08-02] MEDS: PIPERCILLIN/TAZO 3.375 GM in 0.9 % SODIUM CHLORIDE 50 ML IV (21:18)
[2025-08-02 21:23] LABS: Hemoglobin A1C 5.4 % (4.0-6.0)
--- NOTE | 2025-08-02 21:45 | PC.WOUNDNOTE ---
Addendum entered by Ning Frias RN 08/02/25 22:10: Rash is outlined to monitor progress. Original Note: Depicted is the patient's right upper extremity. At this time, the erythemic rash is localized to the patient's forearm. Forearm region is very [id number] and mildly swollen. Patient denies itching and further pain upon assessment. No open areas, raised areas, blistering, or drainage currently noted. Afebrile as well.
[2025-08-02] MEDS: BUSPIRONE HCL 10 MG TABLET PO (22:30)
[2025-08-02] MEDS: PREGABALIN 100MG CAPSULE 225 MG PO (22:30)
[2025-08-02] MEDS: METHYLPREDNISOLONE SOD SUCC 125MG VIAL 60 MG IV (22:30)
[2025-08-02] MEDS: FUROSEMIDE 20MG TABLET 20 MG PO (22:30)
[2025-08-02 22:37] LABS: Uric Acid 5.2 mg/dl (2.5-6.2)
[2025-08-02 23:24] LABS: Microscopic, Urine URINE MICROSCOPIC (MICROSCOPIC)
[2025-08-02 23:30] LABS: Troponin I < 0.01 ng/ml (0.00-0.034)
[2025-08-02 23:33] LABS: Bilirubin,Urine Negative (Negative); Color,Urine YELLOW (Yellow); Glucose,Urine (UA) Negative (Negative); Ketones,Urine Negative (Negative); Leukocyte Esterase,Urine Negative (Negative); PH,Urine 6.0 (5.0-8.5); Protein,Urine Negative (Negative); Specific Gravity, Urine <= 1.005 (1.005-1.030); Urobilinogen,Urine 0.2 EU/dl (0.2)
[2025-08-02 23:55] LABS: Bacteria,Urine 1+ /lpf
[2025-08-03] VITALS (8 sets, daily range): BP systolic 100–129; BP diastolic 55–71; PULSE 75–95; RESP 12–18; TEMP 36.6–38; O2SAT 92–98; BMI 26.5
[2025-08-03] MEDS: ACETAMINOPHEN 325MG TAB 650 MG PO (00:40)
[2025-08-03] MEDS: PIPERCILLIN/TAZO 3.375 GM in 0.9 % SODIUM CHLORIDE 50 ML IV ×4 (01:07→20:14)
[2025-08-03] MEDS: DOXYCYCLINE HYCLATE 100 MG in 0.9 % SODIUM CHLORIDE 250 ML 166.67 MG IV ×2 (01:35→14:00)
[2025-08-03 06:12] LABS: Hematocrit 36.8 % (37.0-47.0); Immature Granulocytes % 1.7 %; Mean Corpuscular HGB Conc 32.9 g/dL (31.8-35.4); Mean Corpuscular Hemoglobin 32.2 pg (27.0-31.2); Mean Corpuscular Volume 97.9 fl (81-99); Nucleated Red Blood Cells % 0 %; Platelet Count 189 K/mm3 (142-424); Red Blood Count 3.76 M/mm3 (4.20-5.40); Red Cell Distribution Width-SD 47.3 fL; White Blood Count 18.1 K/mm3 (4.8-10.8)
[2025-08-03 06:18] LABS: Albumin Level 3.4 g/dl (3.5-5.0); Chloride 103 mmol/L (98-107); Potassium 3.5 mmoL/L (3.5-5.1); Sodium 138 mmol/L (136-145)
[2025-08-03 06:21] LABS: Alanine Aminotransferase 18 U/L (12-78); Albumin/Globulin Ratio 1.2 (1.1-1.8); Alkaline Phosphatase 79 U/L (38-126); Anion Gap 12.5 mEq/L (5-15); Aspartate Amino Transferase 31 U/L (14-36); Bilirubin,Total 0.6 mg/dl (0.2-1.3); Blood Urea Nitrogen 10 mg/dl (7-17); Calcium 8.2 mg/dl (8.4-10.2); Carbon Dioxide 26 mmol/L (22.0-30.0); Creatinine Clearance Estimated 65 mL/min (50-200); Creatinine,Serum 0.70 mg/dl (0.52-1.04); Estimated Glomerular Filt Rate 84 ml/min (>60); GFR (African American) 101 ML/MIN (>60); Globulin 2.9 g/dL (1.3-3.2); Glucose 156 mg/dl (74-100); Total Protein,Serum 6.3 g/dl (6.3-8.2)
[2025-08-03 07:10] LABS: C-Reactive Protein 227.7 mg/L (0-4)
[2025-08-03 07:29] LABS: Hemoglobin 12.0 g/dL (12.2-16.2)
--- NOTE | 2025-08-03 08:27 | HMH.PHAINT1 ---
Pharmacy Intervention Comments: HOME MEDICATION LIST VERIFIED USING LIST FROM OUTPATIENT PHARMACY
[2025-08-03] MEDS: FUROSEMIDE 20MG TABLET 20 MG PO ×3 (08:32→20:14)
[2025-08-03] MEDS: BUSPIRONE HCL 10 MG TABLET PO ×2 (08:32→20:13)
[2025-08-03] MEDS: PREGABALIN 100MG CAPSULE 200 MG PO ×2 (08:33→20:13)
[2025-08-03] MEDS: PREGABALIN 25MG CAPSULE 25 MG PO ×2 (08:33→20:13)
[2025-08-03] MEDS: KETOROLAC 30MG/ML VIAL 30 MG IV ×2 (08:39→20:13)
--- NOTE | 2025-08-03 10:13 | EXP.PHA.CONS ---
Pharmacy Consult Date: 08/03/25 Time: 10:13 Referring provider: DR. QUINTANILLA Reason for Consult:: VANCOMYCIN DOSING Allergies Allergy/AdvReac Type Severity Reaction Status Date / Time Sulfa (Sulfonamide Allergy Unknown I-HIVES Verified 05/20/25 12:56 Antibiotics) (SULFA (SULFONAMIDE ANTIBIOTICS)) Home Medications ?Medication ?Instructions ?Recorded ?Confirmed ?Type furosemide 20 mg tablet 20 mg PO TID 10/15/17 08/02/25 History diltiazem HCl 30 mg tablet 30 mg PO BID 10/01/19 08/03/25 History famotidine 20 mg tablet 20 mg PO BID Reflux/Acid reflux 05/22/22 08/02/25 History klscoktu-opo-letpp acid 0.4 1 each PO DAILY supplement' 05/22/22 08/02/25 History mg-lycopene 300 mcg-lutein 250 mcg tablet rosuvastatin 10 mg tablet 10 mg PO HS 01/11/25 08/02/25 History semaglutide 0.25 mg or 0.5 mg (2 0.5 mg SQ WEEKLY 01/11/25 08/02/25 History mg/3 mL) subcutaneous pen injector (Ozempic) venlafaxine 37.5 mg tablet 37.5 mg PO BID 01/11/25 08/03/25 History buspirone 10 mg tablet 10 mg PO BID 08/02/25 08/02/25 History linaclotide 72 mcg capsule 72 mcg PO DAILY 08/03/25 08/02/25 History (Linzess) losartan 25 mg tablet 25 mg PO DAILY 08/03/25 08/03/25 History pregabalin 225 mg capsule 225 mg PO BID 08/03/25 08/03/25 History New Prescriptions to Start Prescriptions: Height: 1.68 m Weight: 74.843 kg Laboratory Results:: Laboratory Results - last 24 hr 08/02/25 16:15: WBC 23.8 H*, RBC 4.39, Hgb 13.9, Hct 41.8, MCV 95.2, MCH 31.7 H, MCHC 33.3, RDW 12.9, Plt Count 229, MPV 9.5, Neut % (Auto) 80.5 H, Lymph % (Auto) 10.1, [place] % (Auto) 7.8, Eos % (Auto) 0.1, Baso % (Auto) 0.4, Neut # (Auto) 19.2 H, Lymph # (Auto) 2.4, [place] # (Auto) 1.9 H, Eos # (Auto) 0.0, Baso # (Auto) 0.1, Total Counted 100, Neutrophils % (Manual) 85 H, Band Neutrophils % 3.0, Lymphocytes % (Manual) 9 L, Monocytes % (Manual) 3, Platelet Estimate Normal, RBC Morphology Normal, D-Dimer 0.98 H, Sodium 134 L, Potassium 3.3 L, Chloride 93 L, Carbon Dioxide 28, Anion Gap 16.3 H, BUN 12, Creatinine 0.80, Estimated Creat Clear 65, Estimated GFR 72, Est GFR ( Amer) 87, Glucose 163 H, Hemoglobin A1c 5.4, Uric Acid 5.2, Calcium 8.8, Total Bilirubin 1.5 H, AST 37 H, ALT 29, Alkaline Phosphatase 83, Troponin I < 0.01, C-Reactive Protein 124.6 H, Total Protein 7.3, Albumin 4.2, Globulin 3.1, Albumin/Globulin Ratio 1.4, Procalcitonin 1.13 08/02/25 16:56: SARS-CoV-2 (PCR) Not detected, Influenza A Untype (PCR) Not detected, Influenza Type B (PCR) Not detected 08/02/25 19:46: Troponin I < 0.01 08/02/25 22:53: Troponin I < 0.01 08/02/25 23:12: Urine Color Yellow, Urine Appearance Clear, Urine pH 6.0, Ur Specific [place] <= 1.005, Urine Protein Negative, Urine Glucose (UA) Negative, Urine Ketones Negative, Urine Blood Negative, Urine Nitrate Negative, Urine Bilirubin Negative, Urine Urobilinogen 0.2, Ur Leukocyte Esterase Negative, Urine WBC 5-10, Ur Squamous Epith Cells 3-5, Urine Bacteria 1+ 08/03/25 05:30: WBC 18.1 H, RBC 3.76 L, Hgb 12.0 L D, Hct 36.8 L, MCV 97.9, MCH 32.2 H, MCHC 32.9, RDW 13.2, Plt Count 189, MPV 9.5, Neut % (Auto) 90.6 H, Lymph % (Auto) 6.1 L, [place] % (Auto) 1.4 L, Eos % (Auto) 0.0 L, Baso % (Auto) 0.2, Neut # (Auto) 16.4 H, Lymph # (Auto) 1.1, [place] # (Auto) 0.3, Eos # (Auto) 0.0, Baso # (Auto) 0.0, Sodium 138, Potassium 3.5, Chloride 103, Carbon Dioxide 26, Anion Gap 12.5, BUN 10, Creatinine 0.70, Estimated Creat Clear 65, Estimated GFR 84, Est GFR ( Amer) 101, Glucose 156 H, Calcium 8.2 L, Total Bilirubin 0.6, AST 31, ALT 18 D, Alkaline Phosphatase 79, C-Reactive Protein 227.7 H, Total Protein 6.3, Albumin 3.4 L D, Globulin 2.9, Albumin/Globulin Ratio 1.2 Medical History: Medical History (Updated 08/02/25 @ 19:51 by GILMER Castaneda) History of gastroesophageal reflux (GERD) Assessment and Plan Assessment and plan all Dx Assessment and Plan for all problems:: Pharmacokinetic dosing service Objective: Patient: Floor: Age: 65 yo Serum creatinine: 0.70 mg/dL Height: 66.1 Inches Weight (kg): 74.8 Assessment: IBW (kg): 59.53 Dosing wt(kg): 74.8 Estimated Creatinine clearance (ml/min): 74.3 CRCL method: Cockcroft and Gault using ibw(default). Drug selected: Vancomycin Loading dose (mg): Vd (liters): 59.8 (factor used: 0.8 L/kg) Sean (hr-1): 0.066 Half life (hrs): 10.50 CLvanco=?? 3.947 L/hr Recommended dose: 1500 mg Interval: 18 hrs Infusion time (hrs): 2.0 Predicted peak (mcg/mL): 33.8 Predicted trough (mcg/mL): 11.76 Total body weight is being used for vancomycin dosing. Recommendations: Give Vancomycin 1500 mg q 18 hrs with an expected Cpeak of 33.8 mcg/ml and an expected Ctrough of 11.76 mcg/ml AUC 0-24 /DUTCH Data: DUTCH 0.5 mcg/mL:?? AUC/DUTCH:? 1013.4 DUTCH 1.0 mcg/mL:?? AUC/DUTCH:? 506.7 --------- DUTCH 1.5 mcg/mL:?? AUC/DUTCH:? 337.8 DUTCH 2.0 mcg/mL:?? AUC/DUTCH:? 253.4 Thank you for the consult, will continue to follow. -MARBIN GOMEZ, JUNAIDD
--- NOTE | 2025-08-03 11:55 | P.PN_ITS ---
Subjective *Date: 08/03/25 *Time: 11:55 Interval history: Patient feels about the same today, continues to have right arm pain with swelling now in the right hand. Swelling in forearm seems to have improved today however. Follow-up CTs to rule out necrotizing fasciitis. Continue broad-spectrum antibiotics. Exam Data for Last 24 hours Vital signs and Labs for Last 24 Hours: Temp Pulse Resp BP Pulse Ox O2 Del Method 98 F 82 18 129/60 98 Room Air 08/03/25 08:00 08/03/25 08:00 08/03/25 08:00 08/03/25 08:00 08/03/25 08:00 08/03/25 08:00 Laboratory Results - last 24 hr 08/02/25 16:15: WBC 23.8 H*, RBC 4.39, Hgb 13.9, Hct 41.8, MCV 95.2, MCH 31.7 H, MCHC 33.3, RDW 12.9, Plt Count 229, MPV 9.5, Neut % (Auto) 80.5 H, Lymph % (Auto) 10.1, [place] % (Auto) 7.8, Eos % (Auto) 0.1, Baso % (Auto) 0.4, Neut # (Auto) 19.2 H, Lymph # (Auto) 2.4, [place] # (Auto) 1.9 H, Eos # (Auto) 0.0, Baso # (Auto) 0.1, Total Counted 100, Neutrophils % (Manual) 85 H, Band Neutrophils % 3.0, Lymphocytes % (Manual) 9 L, Monocytes % (Manual) 3, Platelet Estimate Normal, RBC Morphology Normal, D-Dimer 0.98 H, Sodium 134 L, Potassium 3.3 L, Chloride 93 L, Carbon Dioxide 28, Anion Gap 16.3 H, BUN 12, Creatinine 0.80, Estimated Creat Clear 65, Estimated GFR 72, Est GFR ( Amer) 87, Glucose 163 H, Hemoglobin A1c 5.4, Uric Acid 5.2, Calcium 8.8, Total Bilirubin 1.5 H, AST 37 H, ALT 29, Alkaline Phosphatase 83, Troponin I < 0.01, C-Reactive Protein 124.6 H, Total Protein 7.3, Albumin 4.2, Globulin 3.1, Albumin/Globulin Ratio 1.4, Procalcitonin 1.13 08/02/25 16:56: SARS-CoV-2 (PCR) Not detected, Influenza A Untype (PCR) Not detected, Influenza Type B (PCR) Not detected 08/02/25 19:46: Troponin I < 0.01 08/02/25 22:53: Troponin I < 0.01 08/02/25 23:12: Urine Color Yellow, Urine Appearance Clear, Urine pH 6.0, Ur Specific [place] <= 1.005, Urine Protein Negative, Urine Glucose (UA) Negative, Urine Ketones Negative, Urine Blood Negative, Urine Nitrate Negative, Urine Bilirubin Negative, Urine Urobilinogen 0.2, Ur Leukocyte Esterase Negative, Urine WBC 5-10, Ur Squamous Epith Cells 3-5, Urine Bacteria 1+ 08/03/25 05:30: WBC 18.1 H, RBC 3.76 L, Hgb 12.0 L D, Hct 36.8 L, MCV 97.9, MCH 32.2 H, MCHC 32.9, RDW 13.2, Plt Count 189, MPV 9.5, Neut % (Auto) 90.6 H, Lymph % (Auto) 6.1 L, [place] % (Auto) 1.4 L, Eos % (Auto) 0.0 L, Baso % (Auto) 0.2, Neut # (Auto) 16.4 H, Lymph # (Auto) 1.1, [place] # (Auto) 0.3, Eos # (Auto) 0.0, Baso # (Auto) 0.0, Sodium 138, Potassium 3.5, Chloride 103, Carbon Dioxide 26, Anion Gap 12.5, BUN 10, Creatinine 0.70, Estimated Creat Clear 65, Estimated GFR 84, Est GFR ( Amer) 101, Glucose 156 H, Calcium 8.2 L, Total Bilirubin 0.6, AST 31, ALT 18 D, Alkaline Phosphatase 79, C-Reactive Protein 227.7 H, Total Protein 6.3, Albumin 3.4 L D, Globulin 2.9, Albumin/Globulin Ratio 1.2 I & O for Last 24 hours: Intake & Output 07/31/25 08/01/25 08/02/25 08/03/25 23:59 23:59 23:59 23:59 Intake Total 1450 / 1672 892 / 892 Output Total 100 / 100 Balance 1350 / 1572 892 / 892 Weight 74.843 kg 74.843 kg Constitutional Constitutional: no acute distress *Routine HEENT Exam Head: Present normocephalic Eye: Present EOMI and PERRL ENT: Present mucous membranes moist *Routine Neck Exam Neck: Present supple; Absent lymphadenopathy *Routine Respiratory Exam Respiratory: Present CTA bilaterally *Routine Cardiovascular Exam Cardiovascular: Present RRR *Routine Abdominal Exam Abdominal: Present soft and normoactive bowel sounds; Absent tenderness *Routine Extremities Exam Extremities: Present edema; Absent cyanosis or clubbing *Routine Skin Exam Skin: Present warm and rash *Routine Neurological Exam Neurological: Present alert and oriented X3 Assessment and Plan *Assessment and plan (1) Cellulitis of right arm: Status: Acute Category: Medical Code(s): L03.113 - Cellulitis of right upper limb Plan Ruthy Giraldo is a 65-year-old female with a medical history significant for hypertension, fibromyalgia, anxiety/depression who presents with progressive right forearm swelling, pain since this morning. Patient states she noticed it this morning after getting out of the shower, and was initially localized in the ventral mid forearm and spread in all directions. Per her and her at bedside, they state it continues to spread even after admission approximately. Patient states she cannot think of anything that could have caused this including trauma, skin breakdown, changes in topicals including lotion/soap/etc. or jewelry, medications. Denies fever/chills, chest pain, shortness of breath. Upon further inquiry, patient does note that she was bitten by her cat a few days ago in her ventral forehead. There also seems to be small area of skin breakdown with scabbing over her ventral wrist. She does state that there is 6/10 pain with extension of her wrist but not significant. Denies pain in other joints. No drainage. Workup in the ED significant for WBC 23.8 with neutrophilic predominance, D-dimer 0.98, total bilirubin 1.5, CRP 124. Given elevated D-dimer, CTA chest and venous Doppler were obtained which did not re veal VTE's. Patient also complained about mild abdominal pain with CT abdomen/pelvis suggesting gastroenteritis and new splenic cyst. She was started on vancomycin, ceftriaxone, and given 1 L LR bolus. Given this presentation, ED provider discussed case with me and I decided to admit patient for cellulitis versus dermatitis. #Sepsis #Cellulitis with subcutaneous hemorrhage/purpura ? Presents with progressive right forearm swelling, redness, pain. Does endorse a cat bite few days ago on the ventral hand, but no other specific trigger that patient can recall. ? Initial WBC 23.8, heart rate in the 100s. CRP 124.6. WBC improved to 18.1, CRP up to 227 today. Fever of 100.4 overnight. Tachycardia resolved. ? On exam, there is ecchymosis overlying erythema scattered on ventral forearm. Swelling has now spread to the hand without tenderness. Swelling and forearm seems to have improved today. Forearm is tender to touch, but no induration or drainage. Could represent cellulitis with hemorrhage, vasculitis, or dermatitis. ? Continue vancomycin, Zosyn 3.375 every 6 hours. ? Ordered IV Solu-Medrol 60 mg once, will hold off on further steroids for now as cellulitis seems to be more likely than dermatitis. ? Follow-up CT forearm, wrist, hand to rule out necrotizing fasciitis. ? Follow-up blood cultures. ? Closely monitor evolvement, borders. ? Follow-up morning CBC, CRP. #Abdominal pain #Gastroenteritis #Hyperbilirubinemia ? Diffuse mild abdominal pain/discomfort. Denies diarrhea, constipation. ? CT abdomen/pelvis suggestive of gastroenteritis. Total bilirubin resolved to 0.6 today. Continue to monitor. ? Continue conservative therapy. #Splenic cyst ? New 5.2 x 4.7 cm cyst medial aspect of the spleen with a central thin septation. ? No focal tenderness. Given size, at risk of rupturing. ? Plan to refer to general surgery for further evaluation and management. #Hypertension ? Hold home diltiazem, losartan as blood pressures normal. #Fibromyalgia ? Continue home pregabalin 225mg twice daily. #Anxiety/depression ? Continue home venlafaxine 37.5 mg twice daily, buspirone 10 mg twice daily. #GERD ? Continue home famotidine 20 mg twice daily. #Chronic constipation ? Continue home Linzess 72 mcg daily. Full code DVT prophylaxis: IPC's in the setting of large splenic cyst
--- NOTE | 2025-08-03 12:18 | CT_ITS ---
FINAL REPORT TECHNIQUE: Thin-section axial images were obtained of the right upper extremity after the administration of IV contrast. Coronal and sagittal images were obtained and reviewed. This study was performed with techniques to keep radiation doses as low as reasonably achievable, (ALARA). Individualized dose reduction techniques using automated exposure control or adjustment of mA and/or kV according to the patient's size were employed. CLINICAL HISTORY: Spreading edema, cellulitis with pain, forearm to hand. COMPARISON: None FINDINGS: There is stranding in the subcutaneous tissues overlying the dorsomedial ulna compatible with cellulitis. No evidence of abscess. This extends to the deeper soft tissue myofascial plane. Myositis can not be excluded. No foreign body or gas is seen in the soft tissues. The visualized distal upper arm is unremarkable. There is no evidence of bony destruction. IMPRESSION: Cellulitis along the dorsomedial forearm without abscess or gas producing infection. Reviewed, Interpreted and Dictated by Julita Miller MD Transcribed by Trixie Gonzalez Authenticated and [facility]
[2025-08-03] MEDS: VANCOMYCIN/WATER FOR INJ (PEG) 1.5 GM/300 ML PIGGYBACK IV (13:15)
[2025-08-03] MEDS: ONDANSETRON 4MG/2ML VIAL 4 MG IV (13:15)
[2025-08-03] MEDS: HYDROCODONE/APAP 5/325 MG TABLET 1 TAB PO (14:00)
--- OUTSIDE RECORDS SUMMARY | 2025-08-03 15:24 | XMS_ITS | Clinical Summary ---
Author Organization [facility] Address [address] [place] [address] Care Team Providers Care Web Merchant Name Role Phone Toy Paredes MD Primary Care Provider + [phone] Allergies Active Allergy Reactions Criticality Noted Date [...] Years (1 of 1 - PCV) 2009 [id number] Vaccine (4 - season) 2025 10/19/2021, 02/09/2021, [...] age to complete this topic [place] [address] ANTHEM Care Teams Web Merchant Relationship Specialty Start Date End Date Toy Paredes MD [address] [place] [address] [place] [id number] PCP - General 02/24/21
--- OUTSIDE RECORDS SUMMARY | 2025-08-03 15:25 | XMS_ITS | Clinical Summary ---
Author Organization [facility] ([place], [place], [place], [place]) Address [address] [place] [address] Care Team Providers Care Accelerator Technician Name Role Phone Toy Paredes MD Primary Care Provider [phone] Allergies Active Allergy Reactions Criticality Noted Date [...] Date John rded Speak language other than Malaysian at home Not on file 11/01/2023 Want [...] Completed 02/07/2022, Medical Devices Implanted Type Area Rn Intern Device Identifier Shelf Expiration Date Model / Serial / Lot Cement Bone Smplx 6194-1-001 - [id number] Implanted:Qt y: 1 on 08/12/2023 by Alanna Patel MD at [facility] IMPLANTS Left: Knee [employer]ESA:[employer] 12/11/2024 6194-1-00 1 / / [id number] Cement Bone Smplx 6194-1-001 - [id number] Implanted:Qt y: 2 on 10/21/2024 by Alanna Patel MD at [facility] IMPLANTS Right: Knee [employer] [id number] 03/13/2026 6194-1-00 / [id number] Psn Tib Oss Ti 0 Spk Kl L Verna 58-9278-874- 01 - [id number] Implanted:Qt y: 1 on 08/12/2023 by Alanna Patel MD at [facility] TOTAL JOINT CONSTRUCT Left: Knee ALLIE:ALLIE [id number] 04/04/2033 42-5350-0 71- / [id number] Patella Cemented 29mm 59-6237-221- 29 - [id number] Implanted:Qt y: 1 on 08/12/2023 by Alanna Patel MD at [facility] [employer] Left: Knee ALLIE:ALLIE [id number] 05/11/2028 42-5400-0 00- / / [id number] Psn Art Surf Mc 12 Ve6-7 Ef Lt 01-4711-381- 12 - [id number] Implanted:Qt y: 1 on 08/12/2023 by Alanna Patel MD at [facility] T[employer] Left: Knee ALLIE:ALLIE [place] [id number] 03/07/2028 42-5121-0 07-12 / [id number] Psn Fem Cr Pps Cocr Std Sz7 L 23-5228-578- 01 - [id number] Implanted:Qt y: 1 on 08/12/2023 by Alanna Patel MD at [facility] [employer] Left: Knee ALLIE:ALLIE [place] [id number] 01/09/2033 42-5086-0 62-01 / / [id number] Psn Rev Tib Fx Keel Cmt Sz E R 68-4748-210- 02 - [id number] Implanted:Qt y: 1 on 10/21/2024 by Alanna Patel MD at [facility] [employer] Right: Knee ALLIE:ALLIE [place] [id number] 08/12/2034 42-5360-0 71-02 / / [id number] Psn Fem Cr Cmt Ccr Nrw Sz 8 R 44-4010-715- 02 - [id number] Implanted:Qt y: 1 on 10/21/2024 by Alanna Patel MD at [facility] [employer] Right: Knee ALLIE:ALLIE [place] [id number] 07/18/2034 42-5020-0 64-02 / / [id number] Psn Art Surf 10 Ve8-11ef Rt 11-1495-483- 10 - [id number] Implanted:Qt y: 1 on 10/21/2024 by Alanna Patel MD at [facility] [employer] Right: Knee ALLIE:ALLIE [place] [id number] 07/01/2029 42-5221-0 08-10 / / [id number] Patella Cemented 29mm 78-8411-594- 29 - [id number] Implanted:Qt y: 1 on 10/21/2024 by Alanna Patel MD at [facility] [employer] Right: Knee ALLIE:ALLIE [place] [id number] 08/06/2029 42-5400-0 [id number] Procedures Procedure Name Priority Date/Time Associated Diagnosis Comments HEMOGLOBIN A1C STAT 12/17/2023 10:46 AM EST Pre-op testing from Last 3 Months or Most Recently Relevant to Health Maintenance Results * Hemoglobin A1c (12/17/2023 10:46 AM EST) Hemoglobin A1C 6.2 % 12/17/2023 11:48 AM EST [facility] Comment: Hemoglobin A1C levels are related to mean glucose during the preceding 2-3 months. Less than 7% demonstrates glycemic control in diabetic patients. Hemoglobin AlC % Suggested Diagnosis > or = 6.5 Diabetic 5.7 - 6.4 Prediabetic <5.7 Non-diabetic eAVG Glucose 131.24 mg/dL 12/17/2023 11:48 AM EST [facility] Blood Venipuncture / Unknown 12/17/2023 10:46 AM EST 12/17/2023 11:08 AM EST Alanna Patel MD LAB BLOOD ORDERABLES Final Result Performing Organization Address City/State/[facility] Co de Phone Number [facility] [address] [phone] from Last 3 Months or Most Recently Relevant to Health Maintenance Insurance MEDICARE PART A B BLUE CROSS/BLUE SHIELD Advance Directives For more information, please contact: [phone] * Full Code (Latest Code Status on [...] p Communication Edgar Giraldo Spouse Healthcare Decision-[facility] Care Teams Accelerator Technician Relationship Specialty Start Date End Date Toy Paredes MD [address] [place] [address] PCP - General Primary Care 10/31/22
--- OUTSIDE RECORDS SUMMARY | 2025-08-03 15:25 | XMS_ITS | Patient Health Record ---
Author Organization [facility] Address [address] [facility] [address] [facility] [address] [place] [address] Care Team Providers Care Gas Meter Prover Name Role Phone Toy Carlos Primary Care Provider Migration, Provider Unavailable Unavailable Allergies Allergen (clinical drug ingredient) Drug/Non Drug Allergy documented on EMR Reaction Allergy Type Onset Date Status SULFA (uncoded) Unknown Allergy Acti ve Results Component Value Reference Range Notes DEXA VERTEBRAL FX ASSESS Reviewed date:04/15/2025 09:33:41 AM Interpretation: Performing Lab: Notes/Report: [address] [place] [address] Name: RUTHY SINGH Exam Date: 04/05/2025 : 1960 Age 64 years Gender: F Physician: TOY CARLOS Facility: [facility] Facility HSV: Outpatient Exam: DEXA VERTEBRAL FX ASSESS EXAMINATION: DUAL X-RAY ABSORPTIOMETRY (DXA) FOR BONE MINERAL DENSITY. CLINICAL INDICATION: 64 years old, Female. Postmenopausal. M81.0 - Age-related osteoporosis without current pathological fracture. TECHNIQUE: An axial (e.g., hips, spine) and/or appendicular (e.g., radius) exam was performed, as appropriate, using [email or web address] densitometer. Images are obtained for bone mineral [...] risk is performed using the [employer] FRAX calculator based on patient-reported risk factors. [...] Armaan Frias MD 04/09/2025 03:16 PM EDT RP Dictated By: Armaan Frias Transcribed By: Transcribed On: 04/05/2025 2:26 PM Electronically signed by: Armaan Frias 04/05/2025 Thank you for referring KRISTAL RUTHY to [facility]. Legally authenticated by DILCIA COTA MD 2025-04-05 14:26:39 COMPREHENSIVE METABOLIC PANE L ([id number]) Reviewed date:08/19/2024 04:07:46 PM Interpretation: Performing Lab:CB, [facility] Ozhd[address]69 [address] [facility], Ken SalazarVovvJW[address] Marty John Notes/Report: NON-FASTING; NON-FASTING; NON-FASTING; NON-FASTING GLUCOSE 83 65-99 mg/dL Fasting reference interval UREA NITROGEN (BUN) 8 7-25 mg/dL CREATININE 0.67 0.50-1.05 mg/dL EGFR 97 > OR = 60 mL/min/1.73m2 BUN/CREATININE RATIO SEE NOTE: 6 (calc) Not Reported: BUN and Creatinine are [...] 24 10-35 U/L ALT 23 6-29 U/L CBC (INCLUDES DIFF/PLT) (639 9) Reviewed date:08/19/2024 04:07:47 PM Interpretation: Performing Lab:STEVEN, LayerBoome1355 [employer]el[address] Incorporatedtel Riskonnect, Melior PharmaceuticalsUntmRT[address] Marty John Notes/Report: NON-FASTING; NON-FASTING; NON-FASTING; NON-FASTING [...] MPV 9.6 7.5-12.5 fL ABSOLUTE NEUTROPHILS 3063 4230-2309 cells/uL ABSOLUTE LYMPHOCYTES 2406 850-3900 cells/uL ABSOLUTE MONOCYTES 583 200-950 cells/uL ABSOLUTE EOSINOPHILS 81 15-500 cells/uL ABSOLUTE BASOPHILS 68 0-200 cells/uL NEUTROPHILS 49.4 LYMPHOCYTES 38.8 MONOCYTES 9.4 EOSINOPHILS 1.3 BASOPHILS 1.1 HEMOGLOBIN A1c (496) Reviewed date:08/19/2024 04:07:47 PM Interpretation: Performing Lab:STEVEN, [employer]-Bernard Healthe1355 [address]tel Risk[employer], Melior PharmaceuticalsGtihYS[address] Marty John Notes/Report: NON-FASTING; NON-FASTING; NON-FASTING; NON-FASTING [...] diagnosis of diabetes in children. According to [place] Diabetes Association (ADA) guidelines, hemoglobin A1c <7.0% represents optimal control in non- diabetic patients. Different metrics may apply to specific patient populations. Standards of Medical Care in Diabetes(ADA). VITAMIN B12/FOLATE, SERUM PA SILVANO (7065) Reviewed date:08/19/2024 04:07:47 PM Interpretation: Performing Lab:STEVEN [employer]Vibron[employer]-Taofang.com [id number] Amelox Incorporatedte Jhoan [place] LmvvEJ[address] Marty John Notes/Report: NON-FASTING; NON-FASTING; NON-FASTING; NON-FASTING VITAMIN B12 207 423-4469 pg/mL Please Note: Although the reference range [...] Range Low: <3.4 Borderline: 3.4-5.4 Normal: >5.4 LIPID PANEL, STANDARD (7600) Reviewed date:12/24/2024 10:38:25 AM Interpretation: Performing Lab:STEVEN [employer]-Ta[employer].com Vyex4364 Amelox IncorporatedteChristian [facility] Essentia HealthJcwyCZ[address] Marty John Notes/Report: NON-FASTING; NON-FASTING; NON-FASTING; NON-FASTING; NON-FAST FASTING:NO FASTING: NO CHOLESTEROL, TOTAL 145 <200 mg/dL HDL CHOLESTEROL 61 > OR = 50 mg/dL TRIGLYCERIDES 172 <150 mg/dL LDL-CHOLESTEROL 59 Reference range: <100 Desirable range <100 mg/dL for primary prevention; <70 mg/dL for patients with CHD or diabetic patients with > or = 2 CHD risk factors. LDL-C is now calculated using the Abad-Scarlet calculation, which is a validated novel method providing better accuracy than the Friedewald equation in the estimation of LDL-C. Abad ANNA et al. NATALIA. 2013;310(19): 5638-3870 (http://education.Liquid Engines.Fantex/faq/XUI185) CHOL/HDLC RATIO 2.4 <5.0 (calc) NON HDL CHOLESTEROL 84 <130 mg/dL (calc) For patients with diabetes plus 1 major ASCVD risk factor, treating to a non-HDL-C goal of <100 mg/dL (LDL-C of <70 mg/dL) is considered a therapeutic option. COMPREHENSIVE METABOLIC PANE (16774) Reviewed date:12/24/2024 10:38:25 AM Interpretation: Performing Lab:CB, NanoVibronix-Bernard Healthe[address], Melior PharmaceuticalsFjbjDX[address] Marty John Notes/Report: NON-FASTING; NON-FASTING; NON-FASTING; NON-FASTING; [...] 23 10-35 U/L ALT 30 6-29 U/L CBC (INCLUDES DIFF/PLT) (639 9) Reviewed date:12/24/2024 10:38:25 AM Interpretation: Performing Lab:STEVEN, NanoVibronix-Bernard [address], Bernard HealthShmaNS[address] Marty John Notes/Report: NON-FASTING; NON-FASTING; NON-FASTING; NON-FASTING; [...] MPV 9.5 7.5-12.5 fL ABSOLUTE NEUTROPHILS 3842 3555-7819 cells/uL ABSOLUTE LYMPHOCYTES 2035 850-3900 cells/uL ABSOLUTE MONOCYTES 553 200-950 cells/uL ABSOLUTE EOSINOPHILS 33 15-500 cells/uL ABSOLUTE BASOPHILS 39 0-200 cells/uL NEUTROPHILS 59.1 LYMPHOCYTES 31.3 MONOCYTES 8.5 EOSINOPHILS 0.5 BASOPHILS 0.6 HEMOGLOBIN A1c (496) Reviewed date:12/24/2024 10:38:25 AM Interpretation: Performing Lab:CB, [facility] [address], [facility] Medical CenterUcpaJQ[address] Marty John Notes/Report: NON-FASTING; NON-FASTING; NON-FASTING; NON-FASTING; [...] diagnosis of diabetes in children. According to [place] Diabetes Association (ADA) guidelines, hemoglobin A1c <7.0% represents optimal control in non- diabetic patients. Different metrics may apply to specific patient populations. Standards of Medical Care in Diabetes(ADA). VITAMIN B12 (927) Reviewed date:12/24/2024 10:38:25 AM Interpretation: Performing Lab:STEVEN, [email or web address] [id number] [employer], [place] GclfBL[address] Marty John Notes/Report: NON-FASTING; NON-FASTING; NON-FASTING; NON-FASTING; NON-FAST FASTING:NO FASTING: NO VITAMIN B12 143 148-1772 pg/mL Please Note: Although the reference range for vitamin B12 is 200-1100 pg/mL, it has been reported that between 5 and 10% of patients with values between 200 and 400 pg/mL may experience neuropsychiatric and hematologic abnormalities due to occult B12 deficiency; less than 1% of patients with values above 400 pg/mL will have symptoms. VITAMIN D,25-OH,TOTAL,IA (17 306) Reviewed date:12/24/2024 10:38:26 AM Interpretation: Performing Lab:STEVEN, NanoVibronix-Bernard Healthe1355 [address] Incorporatedtel [facility], [place] TepgQK[address] Marty John Notes/Report: NON-FASTING; NON-FASTING; NON-FASTING; NON-FASTING; NON-FAST FASTING:NO FASTING: NO VITAMIN D,25-OH,TOTAL,IA 68 30-100 ng/mL Vitamin D Status 25-OH Vitamin D: Deficiency: <20 ng/mL Insufficiency: 20 - 29 ng/mL Optimal: > or = 30 ng/mL For 25-OH Vitamin D testing on patients on D2-supplementation and patients for whom quantitation of D2 and D3 fractions is required, the QuestAssureD(TM) 25-OH VIT D, (D2,D3), LC/MS/MS is recommended: order code 55808 (patients >2yrs). See Note 1 Note 1 For additional information, please refer to http://education.Visual Threat.com/faq/ARQ932 (This link is being provided for informational/ educational purposes only.) Microalbumin (In-House) Reviewed date:06/29/2025 10:51:03 AM Interpretation:Abnormal Performing Lab: Notes/Report: Abnormal ALB 80 CRE 50 A:C 30-300 THYROID PANEL WITH TSH (7444 ) Reviewed date:07/01/2025 10:37:45 AM Interpretation: Performing Lab:STEVEN, [email or web address] [id number] [address] [employer], Bernard HealthGlxaFB[address] Marty John Notes/Report: NON-FASTING; NON-FASTING; NON-FASTING; NON-FASTING; NON-FAST FASTING:YES FASTING: YES T3 UPTAKE 29 22-35 % T4 (THYROXINE), TOTAL 5.3 5.1-11.9 mcg/dL FREE T4 INDEX (T7) 1.5 1.4-3.8 TSH 1.46 0.40-4.50 mIU/L LIPID PANEL, STANDARD (7600) Reviewed date:07/01/2025 10:32:50 AM Interpretation: Performing Lab:STEVEN, NanoVibronix-Bernard Healthe1355 [address] [employer], [place] HealthNcoqWS[address] Marty John Notes/Report: NON-FASTING; NON-FASTING; NON-FASTING; NON-FASTING; [...] of LDL-C. Abad SS et al. NATALIA. 2013;310(19): 4926-2400 (http://education.Liquid Engines.Fantex/faq/WGG499) CHOL/HDLC RATIO 2.1 <5.0 (calc) NON HDL CHOLESTEROL 66 <130 mg/dL (calc) For patients with diabetes plus 1 major ASCVD risk factor, treating to a non-HDL-C goal of <100 mg/dL (LDL-C of <70 mg/dL) is considered a therapeutic option. COMPREHENSIVE METABOLIC PANE Jony (32762) Reviewed date:07/01/2025 10:32:56 AM Interpretation: Performing Lab:STEVEN, NanoVibronix-Bernard Healthe[address], Essentia HealthIofyJM[address] Marty John Notes/Report: NON-FASTING; NON-FASTING; NON-FASTING; NON-FASTING; [...] ALT 24 6-29 U/L CBC (INCLUDES DIFF/PLT) (349 9) Reviewed date:07/01/2025 10:32:43 AM Interpretation: Performing Lab:CB, [facility] Dyot1542 [facility] Marty John Notes/Report: NON-FASTING; NON-FASTING; NON-FASTING; NON-FASTING; [...] MPV 9.3 7.5-12.5 fL ABSOLUTE NEUTROPHILS 3584 6066-3223 cells/uL ABSOLUTE LYMPHOCYTES 2145 850-3900 cells/uL ABSOLUTE MONOCYTES 673 200-950 cells/uL ABSOLUTE EOSINOPHILS 139 15-500 cells/uL ABSOLUTE BASOPHILS 59 0-200 cells/uL NEUTROPHILS 54.3 LYMPHOCYTES 32.5 MONOCYTES 10.2 EOSINOPHILS 2.1 BASOPHILS 0.9 HEMOGLOBIN A1c (496) Reviewed date:07/01/2025 10:32:26 AM Interpretation: Performing Lab:STEVEN [email or web address] Edrv4669 Amelox IncorporatedteChristian [facility], Bernard HealthMfkeQW[address] Marty John Notes/Report: NON-FASTING; NON-FASTING; NON-FASTING; NON-FASTING; [...] for children. VITAMIN B12/FOLATE, SERUM PA SILVANO (7065) Reviewed date:07/01/2025 10:32:37 AM Interpretation: Performing Lab:STEVEN [email or web address] Aywz4972 [address] [facility], [place] XdgcUX[address] Marty John Notes/Report: NON-FASTING; NON-FASTING; NON-FASTING; NON-FASTING; NON-FAST FASTING:YES FASTING: YES VITAMIN B12 389 603-9565 pg/mL Please Note: Although the reference range [...] Range Low: <3.4 Borderline: 3.4-5.4 Normal: >5.4 Mammogram : Bilateral Reviewed date:02/08/2025 02:01:22 PM Interpretation: Performing Lab: Notes/Report: Medications Medication SIG (Take, Route, Frequency, Duration) [...] review and pick correct strength-formulati on from [employer] options. If intended option is not shown, [...] complication (E11.69) Active confirmed Problem Mixed hyperlipidemia (013496834) Mixed hyperlipidemia (E78.2) Active confirmed Problem Localized, primary osteoarthritis of the hand (138589543) Primary osteoarthritis, left hand (M19.042) Active confirmed Problem Fibromyalgia (007134638) Fibromyalgia (M79.7) Active confirmed Problem Age-related osteoporosis (485286777) Age-related osteoporosis without current pathological fracture (M81.0) Active confirmed Problem Vitamin B12 deficiency (113481937) Vitamin B12 deficiency (E53.8) Active confirmed Problem Arthritis (6985530) Arthritis (M19.90) Active c onfirmed Problem Insomnia (684192987) Insomnia (G47.00) Active c onfirmed Problem Neuropathy (857260770) Neuropathy (G62.9) Active confirmed Problem Gastroesophageal reflux disease (702522047) GERD without esophagitis (K21.9) Active confirmed Problem Essential hypertension (53868474) Hypertension, essential (I10) Active confirmed Problem Lymphedema (15345192) Lymphedema (I89.0) Active confirmed Problem Mammography abnormal (308246520) Abnormal mammogram of right breast (R92.8) Active confirmed Problem Hyperlipidemia (77258813) Hyperlipidemia, unspecified (E78.5) Active confirmed Problem Obesity (417442606) Obesity (BMI 30-39.9) (E66.9) Active confirmed Problem Acquired hypothyroidism (221418319) Acquired hypothyroidism (E03.9) Active confirmed Problem Physical examination (3984314) Routine physical examination (Z00.00) Active confirmed Problem Recurrent major depression in full remission (90047610) Recurrent major depressive disorder, in full remission (F33.42) Active confirmed Problem Type II diabetes mellitus without complication (490787669) Type 2 diabetes mellitus without complication, without long-term current use of insulin (E11.9) Active confirmed Problem Pure hypercholesterolemia (102966990) Pure hypercholesterolemia (E78.00) Active confirmed Problem Artificial knee join t present (585373238254) Status post right knee replacement (Z96.651) Active confirmed Problem Acquired hammer toe of left foot (8748179312711632) Hammertoe of left foot (M20.42) Active confirmed Vital Signs Heart Rate 78 /min 06/29/2025 Temperature 98 degrees Fahrenheit 06/29/2025 Blood pressure diastolic 78 mm Hg 06/29/2025 Height 65 in 06/29/2025 Blood pressure systolic 112 mm Hg 06/29/2025 Weight 170 lbs 06/29/2025 BMI 28.29 kg/m2 06/29/2025 Encounters Encounter [facility] Date [facility] [address] [place], [place] [address] 01/16/2025 Provider Migration Fibromyalgia M79.7 and Encounter for immunization Z23 [facility] [address] [address] 08/18/2024 Toy Carlos Hypertension, essent ial I10 ; Pure hypercholesterolemia E78.00 ; Vitamin B12 deficiency E53.8 ; Fibromyalgia M79.7 ; Type 2 diabetes mellitus with other specified complication E11.69 ; Hyperlipidemia, unspecified E78.5 and Immunization(s) administered Z23 [facility] [address] [address] 11/03/[address] [facility] discharge follow-up Z09 and Status post right knee replacement Z96.[address] [address] 12/22/2024 Toy Carlos Vitamin B12 deficien cy [...] exam Z00.00 and Encounter for immunization Z23 [address] [address] 03/30/2025 Toy Carlos Fibromyalgia M79.7 ; Neuropathy G62.9 ; Lymphedema I89.0 ; Hypertension, essential I10 and Age-related osteoporosis without current pathological fracture M81.0 [facility] [address] [address] 06/29/2025 Toy Carlos Acute bronchitis, unspecified organism J20.9 ; Type 2 diabetes mellitus with other specified complication E11.69 ; Hyperlipidemia, unspecified E78.5 ; Acquired hypothyroidism E03.9 and Vitamin B12 deficiency E53.[address] [facility] [address] [address] 08/04/2024 [facility] [address] [address] 01/18/2025 Toy Carlos Breast cancer screen ing by mammogram Z12.31 [facility] PRAFUL [address] [place], [place] [address] 02/16/[address] [facility] [address] [address] 07/30/2025 Toy Carlos Fibromyalgia M79.7 Assessments Encounter [...] has been compliant with our office and [place] regulations r.e. meds. No concerns on my [...] E53.8) - recheck Vitamin B12 level today 12/22/2024 Type 2 diabetes mellitus with other specified complication (ICD-10 - E11.69) Will reevaluate A1c and kidney function 08/18/2024 Fibromyalgia (ICD-10 - M79.7) - reports symptoms fluctuate, no acute pains at this time - well controlled with Lyrica and Venlafaxine - continue current management at this time 06/29/2025 Acquired hypothyroid ism (ICD-10 - E03.9) Check labs to monitor her therapy 03/30/2025 Hypertension, dimas tranl (ICD-10 - I10) Stable blood pressure 03/30/2025 Age-related osteoporosis without current pathological fracture (ICD-10 - M81.0) Has a history of osteoporosis. Does have a DEXA on our records it was normal in 2020. Will redo DEXA scan and assess. 06/29/2025 Vitamin B12 deficien cy (ICD-10 - E53.8) 08/18/2024 Type 2 diabetes mellitus with other specified complication (ICD-10 - E11.69) - last Hgb A1c 6.3% - repeating Hgb A1c today - continue Ozempic, tolerating well 12/22/2024 Mixed hyperlipidemia (ICD-10 - E78.2) 08/18/2024 Hyperlipidemia, unspecified (ICD-10 - E78.5) 12/22/2024 Recurrent major depressive disorder, in full remission (ICD-10 - F33.42) Doing well on venlafaxine. This is also helped with her fibromyalgia 08/18/2024 Immunization(s) administered (ICD-10 - Z23) - tolerated influenza vaccination today, no immediate complications 12/22/2024 Age-related osteoporosis without current pathological fracture (ICD-10 - M81.0) Up-to-date with DEXA and treatment, check vitamin D levels 12/22/2024 Lymphedema (ICD-10 - I89.0) Intermittently attends lymphedema clinic. Currently seems like this is well-managed 12/22/2024 Hypertension, dimas ial (ICD-10 - I10) Stable and well-controlled blood pressure 12/22/2024 GERD without esophagitis (ICD-10 - K21.9) No breakthrough symptoms on current medication 01/16/2025 Fibromyalgia (ICD-10 - M79.7) 12/22/2024 Fibromyalgia (ICD-10 - M79.7) Fibromyalgia is bothering her. Slight increase in Lyrica will be done up to 225 twice daily. Discussed increasing her exercise program now the warmer weather is here and she is excited about doing this. 12/22/2024 Routine medical exam (ICD-10 - Z00.00) Up-to-date with colon, mammogram and DEXA scan. Lifelong non-smoker. Depression symptoms well-managed. No recent falls. Fall prevention plan in place, functional status excellent. 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 Vaccines up-to-date, needs Tdap and this will be sent to her pharmacy 01/16/2025 Encounter for immunization (ICD-10 - Z23) 12/22/2024 Encounter for immunization (ICD-10 - Z23) 03/30/2025 [...] VENIPUNCT, ROUTINE* 06/03/2015 Physical Therapy : Lymphedema 07/01/2018 Physical Therapy : Lymphedema 10/04/2022 M-Vitamin B12 09/26/2021 M-Vitamin D 25 Hydroxy 09/26/2021 Next Appt Details Provider Name:Toy Carlos, 08/10/2025 10:15:00 AM, [address], [address], Insurance Providers Payer Name Payer Address Payer Phone Subscriber Number Group Number Insured Name Patient Relationship to Insured Coverage Start Date Coverage End Date [place] [address] [place] [place] [address] [phone] [id number] Ruthy Espitia Self - patient is the insured [facility] [address] [place] [address] [id number] Ruhty Espitia Self - patient is the insured Hey, Neighbor! [address] [place] [address] [address] [place] [address] ACL Ruthy Espitia Self - patient is [...] 10/21/2024 colonscopy 05/2025 Hospitalization History Reason Date(Month/Year) [facility]- knee surgery 10/21-06/2025 above
--- OUTSIDE RECORDS SUMMARY | 2025-08-03 15:25 | XMS_ITS | Referral Summary ---
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 Maker Name Role Phone Toy Paredes MD Primary Care Provider [phone] Allergies Active Allergy Reactions Criticality Noted Date [...] Date John rded Speak language other than Kazakh at home Not on file 11/01/2023 Want [...] Date Author No 10/22/2024 11:47 AM Kalli Bazna RN Plan of Treatment Not on file Medical Devices Implanted Type Area Quality Supervisor Device Identifier Shelf Expiration Date Model / Serial / Lot Cement Bone Smplx 6194-1-001 - [id number] Implanted:Qt y: 1 on 08/12/2023 by Alanna Patel MD at [facility] IMPLANTS Left: Knee TERESA:[employer] 12/11/2024 6194 1 / / [id number] Cement Bone Smplx 6194-1-001 - [id number] Implanted:Qt y: 2 on 10/21/2024 by Alanna Patel MD at [facility] IMPLANTS Right: Knee TERESA:[employer] [id number] 03/13/2026 / [id number] F Psn Tib Oss Ti 0 Spk Kl L Verna 38-1285-004- 01 - [id number] Implanted:Qt y: 1 on 08/12/2023 by Alanna Patel MD at [facility] TOTAL JOINT CONSTRUCT Left: Knee ALLIE:ALLIE [id number] 04/04/2033 42-5350-0 71- [id number] Patella Cemented 29mm 57-1247-293- 29 - [id number] Implanted:Qt y: 1 on 08/12/2023 by Alanna Patel MD at [facility] TOTAL JO[employer]STRU[employer] Left: Knee ALLIE:ALLIE [place] [id number] 05/11/2028 42-5400-0 00- [id number] Psn Art Surf 12 Ve6-7 Ef Lt 16-4340-785- 12 - [id number] Implanted:Qt y: 1 on 08/12/2023 by Alanna Patel MD at [facility] TOTAL [employer] Left: Knee ALLIE:ALLIE [place] [id number] 03/07/2028 42-5121-0 07- / [id number] Psn Fem Cr Pps Cocr Std Sz7 L 98-2518-821- 01 - [id number] Implanted:Qt y: 1 on 08/12/2023 by Alanna Patel MD at [facility] TOTAL [employer]STRU[employer] Left: Knee ALLIE:ALLIE [place] [id number] 01/09/2033 42-5086-0 62- / [id number] Psn Rev Tib Fx Keel Cmt Sz E R 63-6252-449- 02 - [id number] Implanted:Qt y: 1 on 10/21/2024 by Alanna Patel MD at [facility] TOTAL [employer] Right: Knee ALLIE:ALLIE [place] [id number] 08/12/2034 42-5360-0 71- / [id number] Psn Fem Cr Cmt Ccr Nrw Sz 8 R 36-0517-790- 02 - [id number] Implanted:Qt y: 1 on 10/21/2024 by Alanna Patel MD at [facility] TOTAL [employer]STRU[employer] Right: Knee ALLIE:ALLIE [place] [id number] 07/18/2034 42-5020-0 64- / [id number] Psn Art Surf Mc 10 Ve8-11ef Rt 79-8311-393- 10 - [id number] Implanted:Qt y: 1 on 10/21/2024 by Alanna Patel MD at [facility] TOTAL JO[employer]STRU[employer] Right: Knee ALLIE:ALLIE [place] [id number] 07/01/2029 42-5221-0 08-10 / [id number] Patella Cemented 29mm 54-6169-424- 29 - [id number] Implanted:Qt y: 1 on 10/21/2024 by Alanna Patel MD at [facility] TOTAL JO[employer] CONSTRU[employer] Right: Knee ALLIE:ALLIE [place] [id number] 08/06/2029 42-5400-0 00-29 / [id number] Procedures Procedure Name Priority Date/Time Associated Diagnosis Comments HEMOGLOBIN A1C STAT 12/17/2023 10:46 AM EST Pre-op testing from Last 3 Months or Most Recently Relevant to Health Maintenance Results * Hemoglobin A1c (12/17/2023 10:46 AM EST) Hemoglobin A1C 6.2 % 12/17/2023 11:48 AM EST [facility] Comment: Hemoglobin A1C levels are related to mean glucose during the preceding 2-3 months. Less than 7% demonstrates glycemic control in diabetic patients. Hemoglobin AlC % Suggested Diagnosis > or = 6.5 Diabetic 5.7 - 6.4 Prediabetic <5.7 Non-diabetic eAVG Glucose 131.24 mg/dL 12/17/2023 11:48 AM EST [facility] Blood Venipuncture / Unknown 12/17/2023 10:46 AM EST 12/17/2023 11:08 AM EST Alanna Patel MD LAB BLOOD ORDERABLES Final Result [facility] [address] [phone] from Last 3 Months or Most Recently Relevant to Health Maintenance Insurance MEDICARE PART A B [facility] Advance Directives For more information, please contact: [phone] * Full Code (Latest Code Status on [...] Name Relationship Healthcare Agent Relationshi p Communication [place] Kristal Spouse Healthcare Decision-M [facility] Care Teams Lockstitch Sleeve Maker Relationship Specialty Start Date End Date Toy Paredes MD [address] [place] [address] PCP - General Primary Care 10/31/22
--- OUTSIDE RECORDS SUMMARY | 2025-08-03 15:25 | XMS_ITS | Data Portability ---
Author Organization ELENI DANYA Coley [facility] Address [address] [facility] [place] [address] Care Team Providers Care Tradeshow Worker Name Role Phone LBENRIQUETA ALLEN Primary Care Provider MAAME MCDUFFIE Orthopedic Surgeon MAAME MCDUFFIE Referring Provider [phone] JENNIFER ALAS Orthopedic Surgeon Assessment No assessment recorded. Plan of Treatment Reminders Order Date Submit Date Provider Last Modified By Organization Details Last Modified Time Details Appointments None recorded. Lab None recorded. Referral None recorded. Procedures None recorded. Surgeries None recorded. Imaging None recorded. Medication Orders ondansetron HCl 4 mg tablet [id number] [facility] [address] [facility], [address] [place] [address], [address], 10:31:20 Patient TargetsNo targets recorded. Patient InstructionsNo instructions recorded. Reason for Referral None Reported. Results Created Date Observation Date Name Description Value Unit Range Abnormal Flag Note LastModifiedBy Organization Detail LastModifiedTime 11/11/19 25 11/11/2024 XR, knee, 3 [facility] [address] [place] [address] Soledad francis Name: PHILLIP BENAVIDEZ WONEDIE Soledad francis : [address]58 [address] Orderi ng Provid er: DIEGO SPANN EXAM DATE: 2024 EXAM: XR RT KNEE 3 VIEWS COMPAR ALYSE: 2023 HISTOR Y: Follow -up of prior surger lyn DEVLIN GS: There has been interv al placem ent of a right knee total arthro plasty . There is no eviden ce of loosen ing. No fractu re is identi fied. Contra latera l knee: There is a total knee arthro plasty is place. IMPRES SYLVIA: 1. There is a right total knee arthro plasty in place withou t eviden ce of loosen ing. Interp reted By: Panfilo sanchez MD Electr onical ly Signed By: Panfilo sanchez MD on 9:00 AM [facility] [address] , [place], [address], 11/12/2024 07:51:00 12/01/19 25 12/01/2024 XR, knee, 3 view [facility] [address] [facility] [place] [address] Patien t Name: PHILLIP francis : 958 Patien t Orderi ng Provid er: DIEGO SPANN EXAM DATE: 2024 EXAM: XR RT KNEE 3 VIEWS COMPAR ALYSE: HISTOR Y: Follow -up of prior surger lyn DEVLIN GS: Again seen is a right knee total arthro plasty . There is no eviden ce of loosen ing. No fractu re is identi fied. Contra latera l knee: There is a total knee arthro plasty is place. IMPRES SYLVIA: 1. There is a right total knee arthro plasty in place withou t eviden ce of loosen ing. Interp reted By: Panfilo sanchez MD Electr onical ly Signed By: Panfilo sanchez MD on 9:55 AM [facility] Radiology [facility] [address] , [place], [address], 12/01/2024 12:10:59 02/14/20 25 02/12/2025 US, duple x, venou s, lower extre mity, unila teral No observ ation record ed. [email or web address] [facility] Radiology Cardiology [address] , [place], [address], 02/23/2025 09:06:46 03/01/20 25 03/01/2025 XR, joint , multi ple, 1 view [facility] [address] [facility] [place] [address] Patien t Name: PHILLIP Rowe t : 958 Soledad francis [facility] Wilber er: DIEGO SPANN EXAM DATE: 2024 EXAM: XR LONG LEG RIGHT/ JOINT SURVEY COMPAR ALYSE: 025 HISTOR Y: Follow -up of prior surger y. QUITA GS: There is a right total knee arthro plasty in place. There is no eviden ce of loosen ing or compli cation . The mechan ical axis of the right knee is normal . No fractu re is identi fied. There are mild degene rative change s in the right hip and mild degene rative change s in the ankle. IMPRES SYLVIA: 1. There is a right knee arthro plasty in place withou t eviden ce of compli cation . Interp reted By: Panfilo sanchez MD Electr onical ly Signed By: Panfilo sanchez MD on 025 10:07 AM [email or web address] [facility] Radiology [address] [place], [address], 03/01/2025 14:19:46 05/24/20 25 05/24/2025 XR, shoul sharan, [facility] [address] [facility] [place], [place] [id number] Patien t Name: PHILLIP Rowe t : 959 Patien t Orderi ng Provid er: EVENS THOMAS EXAM DATE: 2024 EXAM: XR RT SHOULD ER COMPLE TE RADIOG RAPHIC VIEWS: 3 COMPAR ALYSE: 02/12/20 24 HISTOR Y: Right should er pain. FINDIN GS: The bones of the should er are normal in alignm ent. There is no eviden ce of fractu re. There is modera te to severe degene rative change s at the glenoh umeral joint. There are mild degene rative change s at the acromi oclavi cular joint and along the greate r tubero sity of the humeru s. The acromi oclavi cular and coraco clavic ular spacin g is normal . The visual ized right ribs and right lung appear s normal . IMPRES SYLVIA: 1. There are modera te to severe degene rative change s in the right glenoh umeral joint. Interp reted By: Panfilo sanchez MD Electr onical ly Signed By: Panfilo sanchez MD on 025 2:38 PM [email or web address] [facility] Radiology [address] [place], [address], 06/30/2025 18:56:46 Result Notes Documentation Provider Name and Address Organization Details Recorded Time Xr, Knee, 3 View : [facility] [place] [address] [place] [address] Patient Name: RUTHY GIRALDO Patient : 1960 Patient Ordering Provider: DIEGO SPANN EXAM DATE: 11/11/2024 EXAM: XR RT KNEE 3 VIEWS COMPARISON: 08/27/2024 HISTORY: Follow-up of prior surgery. FINDINGS: There has been interval placement of a right knee total arthroplasty. There is no evidence of loosening. No fracture is identified. Contralateral knee: There is a total knee arthroplasty is place. IMPRESSION: 1. There is a right total knee arthroplasty in place without evidence of loosening. Interpreted By: Juan Alberto Vela MD O SPANN PA-C [address] [place], [address], [facility] 11/12/2024 07:51:00 Xr, Knee, 3 View : [facility] [place] [address] [place] [address] Patient Name: RUTHY GIRALDO Patient : 1960 Patient Ordering Provider: DIEGO SPANN EXAM DATE: 12/01/2024 EXAM: XR RT KNEE 3 VIEWS COMPARISON: 11/11/2024 HISTORY: Follow-up of prior surgery. FINDINGS: Again seen is a right knee total arthroplasty. There is no evidence of loosening. No fracture is identified. Contralateral knee: There is a total knee arthroplasty is place. IMPRESSION: 1. There is a right total knee arthroplasty in place without evidence of loosening. Interpreted By: Juan Alberto Vela MD O SPANN PA-C [address] [place], [address], [facility] 12/01/2024 12:10:59 Xr, Joint, Multiple, 1 View : [facility] [address] [place] [address] Patient Name: RUTHY GIRALDO Patient : 1960 Patient Ordering Provider: DIEGO SPANN EXAM DATE: 03/01/2025 EXAM: XR LONG LEG RIGHT/ JOINT SURVEY COMPARISON: 12/01/2024 HISTORY: Follow-up of prior surgery. FINDINGS: There is a right total knee arthroplasty in place. There is no evidence of loosening or complication. The mechanical axis of the right knee is normal. No fracture is identified. There are mild degenerative changes in the right hip and mild degenerative changes in the ankle. IMPRESSION: 1. There is a right knee arthroplasty in place without evidence of complication. Interpreted By: Juan Alberto Vela MD O SPANN PA-C [address] [place], [address], [facility] 03/01/2025 14:19:46 Xr, Shoulder, 2 Or More View : [facility] [address] [place] [address] Patient Name: RUTHY GIRALDO Patient : 1960 Patient Ordering Provider: EVENS THOMAS EXAM DATE: 05/24/2025 EXAM: XR RT SHOULDER COMPLETE RADIOGRAPHIC VIEWS: 3 COMPARISON: 02/12/2024 HISTORY: Right shoulder pain. FINDINGS: The bones of the shoulder are normal in alignment. There is no evidence of fracture. There is moderate to severe degenerative changes at the glenohumeral joint. There are mild degenerative changes at the acromioclavicular joint and along the greater tuberosity of the humerus. The acromioclavicular and coracoclavicular spacing is normal. The visualized right ribs and right lung appears normal. IMPRESSION: 1. There are moderate to severe degenerative changes in the right glenohumeral joint. Interpreted By: Juan Alberto Vela MD S THOMAS PA-C [address] [place], [address], [facility] 06/30/2025 18:56:46 Problems Name Problem SNOMED Code Status Onset Date Resolution Date Notes Provider Name and Address Organization Details Recorded Time Pain in left knee Active 2015 From [employer];Prov ider: Maame Mcduffie;Sta tus: Active Not Available [facility] 3 18:07:51 Osteoarth ritis of right knee joint [id number] 9100 Active 2023 JENNIFER Castaneda MD [address] [place], [address] , [facility] 4 18:00:15 Problem Notes None recorded. Procedures Surgical History Date Name Laterality Status Provider Name and Address Organization Details Recorded Time 05/24/20 25 Injection - Joint/Bursa, Major completed EVENS THOMAS PA-C [address] [place], [address], [facility] 05/24/2025 14:00:00 10/21/19 25 TOTAL KNEE ARTHROPLASTY (SURG) completed Pauline Stafford [facility] 11/10/2024 15:25:54 10/15/19 25 PCM Visit completed Caitlin Cole [facility] 10/20/2024 14:43:42 02/12/20 24 Injection - Joint/Bursa, Major completed Ketan Welsh [facility] 02/12/2024 11:29:39 08/12/20 23 total replacement of left knee joint completed Pauline Stafford [facility] 11/28/2023 10:42:39 06/25/20 22 Injection - Joint/Bursa, Major completed MAAME MCDUFFIE MD [address] [place], [address], [facility] 06/25/2022 14:48:05 09/22/20 20 Injection - Joint/Bursa, Major completed MAAME MCDUFFIE MD [address] [place] [address], [address], [facility] 09/23/2020 20:17:27 09/22/20 20 Aspiration Joint/Bursa, Major completed MAAME MCDUFFIE MD [address] [place] [address], [address], [facility] 09/23/2020 20:17:16 08/11/20 20 Suture/Staple removal completed Jd Whelan [facility] 08/11/2020 11:28:28 08/05/20 20 Knee arthroscopy/surgery completed Pauline Stafford [facility] 06/27/2023 13:53:52 07/26/20 20 VAS - Low Ext Layo Dup completed NICOLETTE PRICE MD [facility] [place], [address], [facility] 07/26/2020 15:38:09 05/09/20 20 Injection - Joint/Bursa, Major completed MAAME MCDUFFIE MD [address] [place] [address], [address], [facility] 05/09/2020 10:14:41 Cholecystectomy completed Deseriderek Putnamdle [facility] 04/17/2018 16:46:29 Orthopedic Surgery completed Javi Luo [facility] 06/27/2023 13:48:19 Imaging Results None recorded. Procedure Notes None recorded. Medical Equipment None Reported. Allergies Allergen ID Allergen Name Allergen Category Reaction Reaction Severity Criticality Documentation Date Start Date Code Code System Note Provider Name and Address Organization Details Recorded Time 845302 Substance with sulfonami de structure and antibacte rial mechanism of action (substanc e) medicatio n Not available Not available Not available 09/06/20162008 66025 8003 SNOMED Comme nt: Creat ed By: Aarti stollCre ated Date: 009 4:00: 53 PM; Not Available [facility] 6 13:21:35 Medications Name Sig Start Date Stop Date Status Note LastModified by Organization Details LastModified Time Miralax 17 gram/dose oral powder Take by oral route. active Not Available Not Available No t Available oxybutyni n chloride ER 10 mg tablet,ex tended release 24 hr Take 1 tablet by mouth once daily for 90 days 06/27 completed Not Available Not Available Not Available ondansetr on HCl 4 mg tablet Take 1 tablet every 8 hours by oral route as directed for 30 days, for N/V. 2024 active Not Available Not Available Not Avai lable Medrol (Adalid) 4 mg tablets in a dose pack use as directed 06/27 completed Not Available Not Available Not Available amoxicill in 500 mg tablet Take 1 tablet every 8 hours by oral route. 03/26 completed Not Available Not Available Not Available famotidin e 20 mg tablet Take 1 tablet twice a day by oral route. active Pepcid Not Available Not Available No t Available Silvadene 1 % topical cream APPLY A 1/16 INCH (1.5 MM) THICK LAYER TO ENTIRE BURN AREA BY TOPICALR OUTE 2 TIMES PER DAY 2022 active Not Available Not Available Not Avai lable ranitidin e 150 mg tablet Take 1 tablet twice a day by oral route. 06/27 completed Not Available Not Available Not Available buspirone 10 mg tablet Take 1 tablet every day by oral route. active Not Available Not Available No t Available gabapenti n 100 mg capsule Take 1 capsule every day by oral route at bedtime. 06/27 completed Not Available Not Available Not Available diltiazem 30 mg tablet Take 2 tablets every day by oral route. active Not Available Not Available No t Available Percocet 5 mg-325 mg tablet Take 1 tablet every 6 hours by oral route as needed. 02/11 completed Not Available Not Available Not Available Taft 5 mg-325 mg tablet Take 1 tablet every 4-6 hours by oral route as needed. 06/27 completed Not Available Not Available Not Available pregabali n 200 mg capsule Take 1 capsule every day by oral route. active Not Available Not Available No t Available Lyrica 50 mg capsule As Directed 06/27 completed Instruct ions: handout provided to patient with titratio n instruct ions. Max 600mg/da y in three doses;Fr equency: as direct.; Medicati on Descript ion: pregabal in; Dosage:a s directed ; Route:or al; refills: 0 Not Available Not Available Not Available Vitamin B-12 06/27 completed Duration : 10 days;Med ication Descript ion: cyanocob alamin; Route:or al; refills: 0; Quantity :30 tablet Not Available Not Available Not Available acyclovir added - JW active Not Available Not Available No t Available progester one 200mg 1 daily active Not Available Not Available No t Available Beano PRN- JW active Not Available Not Avail able Not Available venlafaxi ne added - JW active Not Available Not Available No t Available furosemid e added - JW active Not Available Not Available No t Available Metamucil active Not Available Not Ning ilable Not Available Biotect Plus active Not Available Not Available Not Available rosuvasta tin added -JW active Not Available Not Available No t Available Probiotic active Not Available Not Ning ilable Not Available Nexium 24HR active Not Available Not Available Not Available Centrum Silver Women multivit barbour active Not Available Not Available No t Available Linzess 72 mcg capsule Take 1 capsule every day by oral route. active Not Available Not Available No t Available Ozempic 0.25 mg or 0.5 mg (2 mg/3 mL) subcutane ous pen injector Inject by subcutan eous route. active Not Available Not Available No t Available Vitals Date Recorded Body height Body mass index (BMI) Body weight Pain severity - 0-10 verbal numeric rating [Score] - Reported Provider Name and Address Organization Details Last Updated DateTime 11/11/2024 167.64 cm 28.4 kg/m2 27583.26 g 2 Pauline Stafford [facility] 11/11/2024 08:52:57 Date Recorded Body height Body mass index (BMI) Body weight Provider Name and Address Organization Details Last Updated DateTime 12/01/2024 167.64 cm 26.6 kg/m2 34680.74 g Mara Sebastian [facility] 12/01/2024 09:53:21 Date Recorded Body height Body mass index (BMI) Body weight Provider Name and Address Organization Details Last Updated DateTime 03/01/2025 167.64 cm 26.6 kg/m2 56562.74 g Herber Mark Anthony [facility] 03/01/2025 10:18:29 Social History Question Answer Notes LastModified by Organizat ion Details LastModified Time Tobacco Smoking Status Never Smoker Diogenesprasanna Fuentes [facility] 04/17/2018 16:46:14 Marital Status moise Informatio n not available 04/17/2018 What Was The Date Of Your Most Recent Tobacco Screening? 11/11/2024 [email or web address] Information not available 11/11/2024 Has Tobacco Cessation Counseling Been Provided? No [email or web address] Information not available 06/27/2023 Sex: Female Functional Status Question Answer Note LastModified by Organizat ion Details LastModified Time Do you use any illicit or recreational drugs? No [email or web address] Information not available 06/27/2023 Do you or have you ever used any other forms of tobacco or nicotine? No [email or web address] Information not available 06/27/2023 What is your level of alcohol consumption? Occasional [email or web address] Information not available 04/17/2018 Mental Status None recorded. Family History Relationship Description Onset Age of this Age Resolved Age Notes LastModified by Organization Details LastModified Time Unspecified Relation Diabetes mellitus [email or web address] Not available 2017 16:45:56 Unspecified Relation Kidney stone [email or web address] Not available 02/2018 16:46:01 Medical History Condition Response Allergies/Hayfever N Anxiety/Depression N Gout N Other N Thyroid Disease N Heart Conditions N Kidney Stones N Hernia N Migraines N COPD N Glaucoma Y Pneumonia N Skin Problems Y Immune System Disorder N Anesthesia Complications N Heart Attack ([place]) N Mental Illness N Neurological Problems N Diabetes N Rheumatic Fever N Bleeding Disorder N Arthritis Y Seizures/Epilepsy N Blood Clot N Tuberculosis N Genetic Disorder N AIDS/HIV N Acid Reflux (GERD) Y Cancer N Stroke N Asthma N Blood Thinners N Alcohol Overuse/Alcohol Abuse N Sleep Apnea N High Cholesterol N Liver Disease N Included as Review of Systems N Hypertension Y Osteoporosis N Kidney Disease N Gynecological HistoryNo gynecological history recorded. Obstetrics History GPAL:G 0 P 0 0 0 0 Immunizations Vaccine Type Date Status Note Provider Nam e and Address Organization Details Recorded Time Influenza, split virus, quadrivalent, preservative 8 completed Pauline Rivera [facility] 06/27/2023 13:45:54 Influenza, split virus, quadrivalent, preservative 7 completed [facility]27[facility] 13:45:54 Influenza, recombinant, quadrivalent, PF 1 completed Pauline Rivera [facility] 06/27/2023 13:45:54 Influenza, recombinant, quadrivalent, PF 0 completed Paulineannmarie Wellingtonon [facility] 06/27/2023 13:45:54 zoster recombinant 2 completed Pauline Rivera [facility] 06/27/2023 13:45:54 zoster recombinant 2 completed [facility] 06/27/2023 13:45:54 COVID-19, mRNA, LNP-S, PF, 30 mcg/0.3 mL dose 2 completed [facility] 06/27/2023 13:45:54 COVID-19, mRNA, LNP-S, PF, 30 mcg/0.3 mL dose 1 completed Pauline Rivera [facility] 06/27/2023 13:45:54 COVID-19, mRNA, LNP-S, PF, 30 mcg/0.3 mL dose 1 completed Pauline Stafford [facility] 06/27/2023 13:45:54 Hep A, adult 8 completed Paulineannmarie Stafford [facility] 06/27/2023 13:45:54 Past Encounters Encounter ID Performer Location Encounter Start Date Encounter Closed Date Diagnosis/Indication Diagnosis SNOMED-CT Code Diagnosis ICD10 Code Diagnosis IMO Codes Diagnosis Note [id number] VANESSA BRIAN MD [facility] [address] [place] [address] 04/17/2018 14:55:09 04/24/2018 09:17:05 Bladder muscle dysfunction - overactive [id number] N32.81 Mixed urin mat incontinence 306324283 N39.46 [id number] VANESSA BRIAN MD [facility] [address] [place] [address] 06/05/2018 14:36:46 06/17/2018 08:25:00 Bladder muscle dysfunction - overactive [id number] N32.81 [id number] VANESSA BRIAN MD [facility] [address] [place] [address] 10/16/2018 13:00:19 10/16/2018 14:39:29 Bladder muscle dysfunction - overactive [id number] N32.81 [id number] VANESSA BRIAN MD [facility] [place] [address] [address] [place] [address] 03/26/2019 13:45:52 04/22/2019 09:02:05 Bladder muscle dysfunction - overactive [id number] N32.81 [id number] MAAME MCDUFFIE MD [facility] [address] [place] [address] 05/09/2020 08:36:27 05/09/2020 16:04:05 Pain in right knee [id number] 64713 M25.561 Pain in left knee 030259 3429 77105 M25.382 [id number] MAAME MCDUFFIE MD [facility] [address] [place] [address] 06/21/2020 07:39:17 06/21/2020 09:05:52 Pain in right knee [id number] 06540 M25.816 [id number] MAAME MCDUFFIE MD [facility] [address] [place] [address] 07/26/2020 09:41:56 07/26/2020 11:37:55 Pain in right knee [id number] 40605 M25.308 [id number] NICOLETTE PRICE MD [facility] [address] [place] [address] 07/26/2020 15:09:47 07/28/2020 08:21:11 Pain in right lower limb 815089275 M79.266 [id number] MAAME MCDUFFIE MD SURGERY SCHEDULE [address] [facility] [place] [address] 08/05/2020 08:58:13 08/05/2020 08:58:47 [id number] MAAME MCDUFFIE MD [facility] [address] [place] [address] 08/11/2020 10:39:02 08/11/2020 11:31:31 Postoperative care [id number] Z48.89 [id number] MAAME MCDUFFIE MD [facility] [address] [place] [address] 09/01/2020 10:39:41 09/01/2020 12:12:24 Pain in left knee [id number] 11234 M25.562 Pain in right knee 27167 48380 85857 M25.363 [id number] MAAME MCDUFFIE MD [facility] [address] [place] [address] 09/22/2020 11:32:51 09/22/2020 13:35:49 Chondromalacia of left patella [id number] 87961 M22.42 Effusion o f joint of left knee 0025894179 93916 M25.462 [id number] MAAME MCDUFFIE MD [facility] [address] [place] [address] 06/25/2022 13:39:37 06/28/2022 16:44:17 Pain of left knee joint 5614363880 11012 M25.562 Pain of ri ght knee joint 8577344481 33076 M25.561 [id number] MAAME MCDUFFIE MD [facility] [address] [place] [address] 05/20/2023 09:55:19 05/20/2023 11:39:16 Bilateral osteoarthritis of knees 8761219588 24096 M17.0 [id number] JENNIFER Castaneda MD [facility] [address] [place] [address] 06/27/2023 13:17:32 06/27/2023 14:41:19 Pain of left knee joint [id number] 07512 M25.562 Osteoarthr itis of left knee joint 4406802742 89678 M17.12 ASSESSMENT : DJD LEFT knee PLAN:He does have moderate degenerati ve change in both knees, primarily patellofem oral. This is more symptomati c on the left side. On that side, she has a bit more tibiofemor al disease as well. While her degenerati ve changes are moderate, she has exhausted all conservati ve treatments . In this scenario, I believe that proceeding to TKA is a reasonable alternativ e. We did discuss the unique challenges posed knee arthroplas ty for isolated patellofem oral arthritis. This includes higher level of persistent pain dissatisfa ction despite an otherwise well-funct ioning TKA. If she does well on the left side, we can consider proceeding to right TKA in 3 to 4 months. That side will be more complicate d due to the presence of hardware from her tibial tubercle transfer. The patient has end stage osteoarthr itis of the LEFT knee. The patient has failed conservati ve measures including NSAIDs, activity modificati on, corticoste roid injections , etc. The patient has pain daily, affecting his/her activities of daily living. They wish to proceed with total knee arthroplas ty, which I believe to be reasonable . We reviewed the risks, benefits, and alternativ es to knee replacemen t surgery. We discussed the risk of infection, fracture, neurovascu lar injury, chronic pain, stiffness, instabilit y, aseptic loosening, and component wear. We discussed the risk of medical complicati ons, including but not limited to, VTE, pulmonary complicati ons, cardiac complicati ons, and stroke. All questions were answered to the best of my ability. Surgery date: 08-12-23[facility] location: [facility] equipment: {{ Micheal MC, press-fit, next, patella was everted, measured, and inspected. It was found to have minimal chondrosis , so we elected to leave it unresurfac ed. Tracking was assessed. Lateral release performed at this point if necessary. #}}Pre-op clearance: PASSOther medical clearance: DVT prophylaxi s: ASA, TEDAdmissi on status: OUTPATIENT Discharge plan: overnight admissionP T: home health Allergies: otherSkin testing: No [id number] JENNIFER Castaneda MD SURGERY SCHEDULE [address] [place] [address] 08/13/2023 15:04:42 08/19/2023 13:46:14 [id number] C MIKE KOO PA-C [facility] [address] [place] [address] 08/30/2023 13:12:41 08/30/2023 14:05:47 Postoperative care [id number] Z48.89 3 weeks status post left TKA doing well. Patient can get her incision wet discontinu e SHELLEY hose. Continue to focus on ice elevation and stretching . Can start DepoCyt strengthen ing somewhat 6 weeks postop. Continue DVT prophylaxi s for additional week. Follow-up in 4 to 6 weeks for radiograph s [id number] GARRET BOWDEN PA-C [facility] [address] [place] [address] 09/27/2023 14:58:43 09/27/2023 16:18:38 Postoperative care [id number] Z48.89 Assessment : 6-week status post total knee arthroplas tyPlan: Doing well. Continue with PT towards goals. Okay to submerge incision at this point. Patient has completed DVT prophylaxi s. Follow-up 6 to 8 weeks with long-leg x-rays. Call with any questions or concerns. Edema of l eft lower limb [id number] R60.0 Like to be overly cautious, would like to order venous duplex of the left lower extremity to rule out DVT. If negative, likely calf strain due to increased activity. Edema likely postoperat jose [id number] GARRET BOWDEN PA-C [facility] [address] [place] [address] 11/22/2023 14:45:20 11/22/2023 15:29:07 Postoperative care [id number] Z48.89 Doing great. Controvers y surroundin g dental prophylaxi s reviewed. NSAIDs or analgesics for residual pain and swelling. Discussed this can last for up to 1 year. Follow-up 1 year or as needed. Osteoarthr itis of right knee joint [id number] 76576 M17.11 Patient does have moderate osteoarthr itic changes in the right knee, previously discussed with Dr. Dylon castaneda for right total knee arthroplas ty following left knee arthroplas ty. She is doing great over the past few weeks for her left total knee, just had some worsening pitting edema postoperat ively is the only notable issues in the perioperat jose period. I will have her follow-up with Dr. Dylon castaneda and next available appointmen t to discuss right total knee arthroplas ty for his previous note and help get this scheduled. [id number] JENNIFER Castaneda MD ORTHOPEDI [address] [place] [address] 11/28/2023 10:14:15 11/28/2023 12:31:55 Pain of right knee joint [id number] 96337 M25.561 Osteoarthr itis of right knee joint [id number] 49691 M17.11 ASSESSMENT : DJD RIGHT knee PLAN:He does have moderate degenerati ve change in both knees, primarily patellofem oral. This is more symptomati c on the left side. On that side, she has a bit more tibiofemor al disease as well. While her degenerati ve changes are moderate, she has exhausted all conservati ve treatments . In this scenario, I believe that proceeding to TKA is a reasonable alternativ e. We did discuss the unique challenges posed knee arthroplas ty for isolated patellofem oral arthritis. This includes higher level of persistent pain dissatisfa ction despite an otherwise well-funct ioning TKA. The patient has end stage osteoarthr itis of the LEFT knee. The patient has failed conservati ve measures including NSAIDs, activity modificati on, corticoste roid injections , etc. The patient has pain daily, affecting his/her activities of daily living. They wish to proceed with total knee arthroplas ty, which I believe to be reasonable . We reviewed the risks, benefits, and alternativ es to knee replacemen t surgery. We discussed the risk of infection, fracture, neurovascu lar injury, chronic pain, stiffness, instabilit y, aseptic loosening, and component wear. We discussed the risk of medical complicati ons, including but not limited to, VTE, pulmonary complicati ons, cardiac complicati ons, and stroke. We did discuss hardware management on the right side. I suspect we may need to remove the proximal screw, but likely retain the distal screw. Our initial plan will be to proceed with cementless fixation, but I did explain that we may need to consider cemented fixation on the tibial side, depending on the presence of any stress riser. She does understand that the excellent result she has experience d following her left TKA, is not a guarantee the same result on the right. All questions were answered to the best of my ability. Surgery date: 12-30-23 [facility] location: [facility] equipment: Micheal MC, press-fit, screwdrive rs, patellar resurfacin gPre-op clearance: PASSOther medical clearance: DVT prophylaxi s: ASA, TEDAdmissi on status: OUTPATIENT Discharge plan: overnight admissionP T: home health Allergies: otherSkin testing: No [id number] JUANITA PERKINS MD [facility] [address] [place] [address] 12/31/2023 13:55:27 12/31/2023 15:01:09 Complete tear, elbow joint, medial collateral ligament [id number] S53.442A Complete t ear, elbow joint, lateral collateral ligament [id number] S53.432A Closed tra umatic dislocation of elbow joint [id number] S53.105A [id number] JUANITA PERKINS MD SURGERY SCHEDULE [address] [place] [address] 01/03/2024 12:05:44 01/03/2024 12:06:31 Injury of elbow [id number] S53.105A [id number] EVENS THOMAS PA-C [facility] [address] [address] 01/15/2024 10:31:34 01/15/2024 11:46:47 Pain of left elbow joint [id number] M25.522 Postoperative care [id number] Z48.89 Assessment : Status 2 weeks post left elbow LCL and MCL repairs on 01/03/2024 Plan: She will be placed in a hinged elbow brace and sent to 40 to 100 degrees. She will start physical therapy with Aubrey Carson PT. Vitamin E lotion or oil as needed for scar healing. May get the incision site(s) wet, no scrubbing, dab to dry. Ice and heat as needed, using barrier over top of the skin to avoid heat or cool injury to the skin. Follow-up in 4 weeks for recheck with Dr. Perkins. Traumatic rupture of ulnar collateral ligament of elbow [id number] S53.32XD [id number] JUANITA PERKINS MD [facility] [address] [place] [address] 02/12/2024 10:32:31 02/12/2024 11:33:16 Postoperative care [id number] Z48.89 Assessment : Status 6 weeks post left elbow LCL and MCL repairs on 01/03/2024 Plan: She is doing well postoperat ively. I showed her in office exercises to improve ROM. Able to discontinu e brace unless warranted. I informed her she may have limited ROM due to heterotopi c ossificati on that presents on XR. F/U with Evens in 2 months with XOA. In regards to her right shoulder, I recommende d proper mechanics in order to limit sx. I informed her injections are for inflammati on and are not a fix to the overall anatomical problem. After discussing CSI, pt would like to move forward with this in office today. I injected her right shoulder. She tolerated the procedure well. Traumatic rupture of ulnar collateral ligament of elbow [id number] S53.32XD Osteoarthr itis of joint of right shoulder region [id number] 30186 M19.011 [id number] EVENS THOMAS PA-C [facility] [address] [address] 04/20/2024 15:11:32 04/21/2024 04:26:19 Postoperative care [id number] Z48.89 Assessment : Status 14 weeks post left elbow LCL and MCL repairs on 01/03/2024 Plan: She has reached an acceptable level of function. Follow-up as needed. [id number] JENNIFER Castaneda MD [facility]THOPEDI [facility] [address] [place] [address] 08/27/2024 09:30:29 08/27/2024 12:31:26 Osteoarthritis of right knee joint [id number] 53898 M17.11 ASSESSMENT : DJD RIGHT knee PLAN:Peri parham does have moderate degenerati ve change in both knees, primarily patellofem oral. This is more symptomati c on the left side. On that side, she has a bit more tibiofemor al disease as well. While her degenerati ve changes are moderate, she has exhausted all conservati ve treatments . In this scenario, I believe that proceeding to TKA is a reasonable alternativ e. We did discuss the unique challenges posed knee arthroplas ty for isolated patellofem oral arthritis. This includes higher level of persistent pain dissatisfa ction despite an otherwise well-funct ioning TKA. The patient has end stage osteoarthr itis of the RIGHT knee. The patient has failed > 3 months of conservati ve measures including NSAIDs, activity modificati on, corticoste roid injections , etc. The patient has pain daily, affecting his/her activities of daily living, and interferin g with sleep. They wish to proceed with total knee arthroplas ty, which I believe to be reasonable . Per ACR/AAHKS guidelines , arthroplas ty in patients with moderate to severe arthritis should not be delayed simply to engage in additional nonoperati ve treatment options. We reviewed the risks, benefits, and alternativ es to knee replacemen t surgery. We discussed the risk of infection, fracture, neurovascu lar injury, chronic pain, stiffness, instabilit y, aseptic loosening, and component wear. We discussed the risk of medical complicati ons, including but not limited to, VTE, pulmonary complicati ons, cardiac complicati ons, and stroke. We did discuss hardware management on the right side. I suspect we may need to remove the proximal screw at a minimum.Ho allison, she feels that both screws are a bit prominent and irritating , and she would prefer that we remove them both.Our initial plan will be to proceed with cementless fixation, but I did explain that we may need to consider cemented fixation on the tibial side, depending on the presence of any stress riser. She does understand that the excellent result she has experience d following her left TKA, is not a guarantee the same result on the right. All questions were answered to the best of my ability. The patient expresses understand ing and awareness of PCM services, including but not limited to potential cost sharing responsibi lities; only one [facility] er can furnish and bill for PCM services during a calendar month, and the patient can stop these services at any time. The patient understand s and has verbally consented to accept PCM services and has been provided a copy of a written explanatio n of this service today. [facility]: [facility] Cemented Micheal MC, screwdrive rs, patellar resurfacin gPre-op clearance: Joan Vaughn medical clearance: DVT prophylaxi s: ASA, TEDAdmissi on status: OUTPATIENT Discharge plan: overnight admissionP T: home health Allergies: otherSkin testing: No [id number] GARRET BOWDEN PA-C [facility] [address] [place] [address] 09/30/2024 11:02:27 09/30/2024 11:44:32 Pre-surgery evaluation [id number] Z01.818 Chronic conditions appear stable. Preoperati ve lab work reviewed with the patient. Any modifiable risk factors discussed. No indication for any additional labs or testing at this time. Continue with planned joint arthroplas ty. Discussed postoperat jose plan for physical therapy. All questions answered to the best of my ability. Gastroesop hageal reflux disease without esophagitis [id number] K21.9 Famotidine BID Obesity [id number] E66.9 Ozempic daily, hold for 2 weeks prior to surgery Edema of l ower extremity [id number] R60.0 Taking lasix daily - will hold day of surgery [id number] JENNIFER Castaneda MD [facility] [address] [place] [address] 10/15/2024 14:26:06 10/26/2024 07:59:15 Osteoarthritis of knee [id number] M17.11 Alicia was seen by Dr Dylon castaneda where surgical plan was discussed and finalized for right total knee arthroplas ty on 10/21/24. [id number] JENNIFER Castaneda MD SURGERY SCHEDULE [address] [place] [address] 10/21/2024 10:13:02 10/27/2024 14:04:49 [id number] DIEGO SPANN PA-C [facility] [address] [place] [address] 11/11/2024 08:30:35 11/11/2024 09:16:09 History of right total knee replacement [id number] 476186 Z96.651 Patient is 3 weeks post op RTKA. Patient reports they are doing well, without complaints . She is already in OPPT, 0 - 115~120 with PT @ [facility], very pleased with results. Minimal pain or swelling. Radiograph s obtained today reveal intact BTKA implants in good positionin g and alignment, with no evidence of loosening, lysis or RLLs.Physi shae exam reveals good ROM without pain and a well-heale d surgical incision. We reviewed the expected progressio n of recovery and rehabilita tion from a total knee replacemen t and explained that any symptoms such as nighttime aching and morning stiffness are due to soft tissue weakness, are within expectatio ns at this point post-op and should resolve over time asthey build strength and stamina. RTC in 3 weeks for routine 6 week post op follow up with radiograph s. [id number] DIEGO SPANN PA-C [facility] [address] [place] [address] 12/01/2024 09:27:03 12/01/2024 10:31:44 Nausea [id number] R11.0 History of right total knee replacement [id number] 125657 Z96.651 Pt is here today for 6 week post op RTKA follow up. She reports she is doing excellent, no issues or concerns. She has about completed her PT, they wanted to discharge her since she has met all of her goals and this is her second side. With as great as she is doing, I am agreeable with this.Radio graphs obtained today reveal intact B TKA implants in good positionin gand alignment, with no evidence of loosening, lysis or RLLs.Physi shae exam reveals good ROM without pain and a well-heale d surgicalin cision. At this time, the patient is encouraged to gradually resumeacti vities of daily living as comfortabl e, including walking for increasing periods of time,swimm ing, and driving. The patient should begin working on strengthen ing the leg; weemphasiz ed the importance of continuing their HEP to build and maintain strength.W e reviewed scar massages and tissue mobilizati on. F/u in 2-3 months for recheck and LLXR films [id number] DIEGO SPANN PA-C ORTHOPEDI [address] [place] [address] 03/01/2025 09:50:58 03/01/2025 10:57:01 History of total knee arthroplasty [id number] 105 Z96.651 [id number] Patient is here today for routine 4 month follow up RTKA. She reports she is doing very well, with no issues or concerns. She had a bakers cyst noted on recent doppler, but negative for blood clots. Radiograph s obtained today reveal intact RTKA implants in good positionin g and alignment, with no evidence of loosening, lysis or RLLs.Physi shae exam reveals good ROM without pain and a well-heale d surgical scar. At this time, the patient is encouraged to gradually resumeacti vities of daily living as comfortabl e, including walking for increasing periods of time,swimm ing, and driving. The patient should begin working on strengthen ing the leg; weemphasiz ed the importance of continuing their HEP to build and maintain strength. We reviewed scar massages and tissue mobilizati on. RTC in 1 year or sooner if symptoms warrant for radiograph s for BTKA. [id number] EVENS THMOAS PA-C ORTHOPEDI [address] [place] [address] 05/24/2025 13:21:48 05/24/2025 14:28:36 Osteoarthritis of joint of right shoulder region [id number] 12275 M19.168 [id number] Steroid injection tolerated well without complicati on. The patient may repeat this injection every 3 months. Terminal treatment for this shoulder is likely arthroplas ty. Follow-up as needed. Health Concerns Section Related Observation LastModified by Organization Detai ls LastModified Time None Recorded Concern Status LastModified by Organization Details LastModified Time None Recorded Advance Directives Directive None Recorded Payers Insurance Date Sequence Insurance Name Policy Number Policy Purvis Covered Member ID Purvis Member ID Guarantor Name 05/22/2025 2 [facility] [place] [employer] [address] [place] [address] Kristal [id number] Ruthy Benavidezbotham 05/22/2025 [employer] ASSIGNED (MEDICARE DME REGION B) Ruthy Reynoldsginbotham [id number] Ruthy Reynoldsginbotham 05/20/2023 1 [place] Ruthy Benavidezbotham [id number] Ruthy J Kristal 08/27/2024 2 [facility] (PPO) [id number] ER Ruthy Benavidezbotham [id number] Ruthy Reynoldsginbotham 05/21/2025 1 [place] Ruthy Reynoldsginbotham [id number] Ruthy Tripathi Kristal Notes Date Note Type Note Provider Name and Address Organization Details Recorded Time 11/11/2024 text/html 11/11/24Patient is 3 weeks s/p R TKA s/p on 10/21/2024.Pain is improvingCurrently taking no as needed doses per day of narcotic. Tylenol.Ambulating with canePT: outpatient [facility] PT. Denies fevers, chills, or wound drainage.They do not request a refill of pain medicine. Operative cultures Not Obtained DIEGO SPANN PA-C [address] [place], [address], [facility] 11/11/2024 09:12:05 12/01/2024 text/html 12/01/24Patient is 6 weeks s/p R TKA s/p on 10/21/2024.Pain is completely betterCurrently taking no as needed doses per day of narcotic. Tylenol.Ambulating with no assistive devicePT: outpatient [facility]. Denies fevers, chills, or wound drainage.They do not request a refill of pain medicine. Operative cultures Not Obtained DIEGO SPANN PA-C [address] [place], [address], [facility] 12/01/2024 10:38:13 03/01/2025 text/html 03/01/25Patient is 12 weeks s/p R TKA s/p on 10/21/2024.Pain is completely betterCurrently taking no as needed doses per day of narcotic. Tylenol.Ambulating with no assistive devicePT: outpatient [facility]. Denies fevers, chills, or wound drainage.They do not request a refill of pain medicine. Patient states that she has a lomax's cysts is present on the right knee, she also states that she is having some swelling. US vs DVT venous duplex RT lower [id number] cultures Not Obtained 12/01/24Patient is 6 weeks s/p R TKA s/p on 10/21/2024.Pain is completely betterCurrently taking no as needed doses per day of narcotic. Tylenol.Ambulating with no assistive devicePT: outpatient [facility]. Denies fevers, chills, or wound drainage.They do not request a refill of pain medicine. Operative cultures Not Obtained DIEGO SPANN PA-C [address] [place], [address], [facility] 03/01/2025 10:49:37 05/24/2025 text/html Patient comes in today for FU Right Shoulder.Patient states they are worse than last visit.Patient denies new injury since last visitPain is intermittent throbbing in nature.The patient does not have numbness or tinglingThey have popping and clickingThey are not able to sleep comfortably with this injury.Their pain is made better with resting the limbTheir pain is exacerbated by putting weight on and moving the affected limbOverall, the patient would say that their pain is well-controlled at this time. EVENS THOMAS PA-C [address] [place], [address], [facility] 05/24/2025 14:17:38 OBGyn Episode No OBEpisode recorded.
--- OUTSIDE RECORDS SUMMARY | 2025-08-03 15:26 | XMS_ITS | Clinical Summary ---
[facility] Address [address] [place] [address] Care Team Providers Care Fixed Income Portfolio Manager Name Role Phone Toy Paredes MD Primary Care Provider [phone] Allergies Active Allergy Reactions Criticality Noted Date Comments Sulfa Antibiotics Hives Medium 02/14/2018 Medications propranolol (INDERAL) 20 MG tablet 8 Active furosemide (LASIX) 20 MG tablet 8 Active diltiaZEM (CARDIZEM) 30 MG tablet 8 Active fluticasone (FLONASE) 50 MCG/ACT nasal spray 8 Active IT INSTRUCTOR Thyroid 30 MG tablet 1 Active Linzess 72 MCG capsule capsule 1 Active Progesterone (PROMETRIUM) 200 MG capsule Take 1 capsule by mouth every night at bedtime. 2 Active SSD 1 % cream 2 Active vitamin D3 125 MCG (5000 UT) capsule capsule Take 1 capsule by mouth Daily. Active busPIRone (BUSPAR) 10 MG tablet 3 Active neomycin-polymy catrachita-dexamethaso ne (MAXITROL) 3.5-14434-7.1 ophthalmic suspension 3 Active Ozempic, 0.25 or [...] Description 10/11/2025 10:00 AM EST Office Visit [facility] [address] [address] Sandy Vargas MD [address] [address] Health Maintenance Due Date Last Done Comments [...] 11/02/2021 Pneumococcal Vaccine 50+ Completed 05/05/2024 Insurance [facility] [employer] [employer] P[employer] Member Subscriber Plan / Payer (Ef fective 2016-Present) Name:Ruthy Giraldo Relation to Subscriber:Self Name:Ruthy Giraldo Payer ID:[id number] (NAIC) Type:Not on file Address: [facility] [id number] [place] [id number] MEDICARE A & B Member Subscriber Plan / Payer ( fective 2015-Present) Name:Ruthy Giraldo Member ID:[id number] Relation to Subscriber:Self Name:Ruthy Giraldo Subscriber ID:[id number] Payer ID:[id number] Group ID:Not on file Type:Not on file Address: [facility] [id number] [employer] Care Teams Fixed Income Portfolio Manager Relationship Specialty Start Date End Date Toy Paredes MD [address] [facility] [address] [place] [address] PCP - General Adolescent Medicine 02/14/18
--- NOTE | 2025-08-03 16:58 | PC.NURSE ---
pts arm continues to be red and swollen, PRN meds given as needed this shift, family at bedside, call light in reach
[2025-08-03] MEDS: VENLAFAXINE 37.5MG TABLET 37.5 MG PO (20:13)
[2025-08-03] MEDS: FAMOTIDINE 20MG TABLET 20 MG PO (20:13)
[2025-08-03 21:07] LABS: Procalcitonin 0.874 ng/mL (0.0-2.0)
[2025-08-04] VITALS: BP 123/66; PULSE 75; RESP 16; TEMP 36.7; O2SAT 94
[2025-08-04] MEDS: PIPERCILLIN/TAZO 3.375 GM in 0.9 % SODIUM CHLORIDE 50 ML IV ×3 (01:20→13:06)
[2025-08-04] MEDS: DOXYCYCLINE HYCLATE 100 MG in 0.9 % SODIUM CHLORIDE 250 ML 166.67 MG IV (01:21)
[2025-08-04 04:00] VITALS: BP 114/66; PULSE 66; RESP 16; TEMP 36.8; O2SAT 94; BMI 27.0
[2025-08-04 06:39] LABS: Chloride 104 mmol/L (98-107)
[2025-08-04 06:40] LABS: Albumin Level 3.1 g/dl (3.5-5.0); Potassium 3.1 mmoL/L (3.5-5.1); Sodium 138 mmol/L (136-145)
[2025-08-04 06:42] LABS: Alanine Aminotransferase 16 U/L (12-78); Anion Gap 11.1 mEq/L (5-15); Aspartate Amino Transferase 33 U/L (14-36); Blood Urea Nitrogen 13 mg/dl (7-17); Carbon Dioxide 26 mmol/L (22.0-30.0); Creatinine Clearance Estimated 65 mL/min (50-200); Creatinine,Serum 0.60 mg/dl (0.52-1.04); Estimated Glomerular Filt Rate 100 ml/min (>60); GFR (African American) 121 ML/MIN (>60)
[2025-08-04 06:43] LABS: Albumin/Globulin Ratio 1.1 (1.1-1.8); Alkaline Phosphatase 88 U/L (38-126); Bilirubin,Total 0.3 mg/dl (0.2-1.3); Calcium 7.8 mg/dl (8.4-10.2); Globulin 2.9 g/dL (1.3-3.2); Glucose 119 mg/dl (74-100); Total Protein,Serum 6.0 g/dl (6.3-8.2)
[2025-08-04 06:44] LABS: Hematocrit 31.7 % (37.0-47.0); Hemoglobin 10.8 g/dL (12.2-16.2); Immature Granulocytes % 1.1 %; Mean Corpuscular HGB Conc 34.1 g/dL (31.8-35.4); Mean Corpuscular Hemoglobin 32.6 pg (27.0-31.2); Mean Corpuscular Volume 95.8 fl (81-99); Nucleated Red Blood Cells % 0 %; Platelet Count 208 K/mm3 (142-424); Red Blood Count 3.31 M/mm3 (4.20-5.40); Red Cell Distribution Width-SD 45.9 fL; White Blood Count 17.3 K/mm3 (4.8-10.8)
[2025-08-04] MEDS: VANCOMYCIN/WATER FOR INJ (PEG) 1.5 GM/300 ML PIGGYBACK IV (07:34)
[2025-08-04 07:57] VITALS: BP 126/75; PULSE 71; RESP 16; TEMP 36.7; O2SAT 94
[2025-08-04 08:30] VITALS: O2SAT 94
[2025-08-04 09:07] LABS: C-Reactive Protein 163.0 mg/L (0-4)
[2025-08-04] MEDS: BUSPIRONE HCL 10 MG TABLET PO (09:13)
[2025-08-04] MEDS: FAMOTIDINE 20MG TABLET 20 MG PO (09:13)
[2025-08-04] MEDS: POTASSIUM CHLORIDE 20MEQ TAB 40 MEQ PO ×2 (09:13→12:28)
[2025-08-04] MEDS: FUROSEMIDE 20MG TABLET 20 MG PO ×2 (09:14→12:28)
[2025-08-04] MEDS: PREGABALIN 25MG CAPSULE 25 MG PO (09:14)
[2025-08-04] MEDS: VENLAFAXINE 37.5MG TABLET 37.5 MG PO (09:14)
[2025-08-04] MEDS: PREGABALIN 100MG CAPSULE 200 MG PO (09:14)
--- NOTE | 2025-08-04 11:31 | EXP.DC.SUM ---
General Admission date:: 08/02/25 HPI HPI HPI: Ruthy Giraldo is a 65-year-old female with a medical history significant for hypertension, fibromyalgia, anxiety/depression who presents with progressive right forearm swelling, pain since this morning. Patient states she noticed it this morning after getting out of the shower, and was initially localized in the ventral mid forearm and spread in all directions. Per her and her at bedside, they state it continues to spread even after admission approximately. Patient states she cannot think of anything that could have caused this including trauma, skin breakdown, changes in topicals including lotion/soap/etc. or jewelry, medications. Denies fever/chills, chest pain, shortness of breath. Upon further inquiry, patient does note that she was bitten by her cat a few days ago in her ventral forehead. There also seems to be small area of skin breakdown with scabbing over her ventral wrist. She does state that there is 6/10 pain with extension of her wrist but not significant. Denies pain in other joints. No drainage. Workup in the ED significant for WBC 23.8 with neutrophilic predominance, D-dimer 0.98, total bilirubin 1.5, CRP 124. Given elevated D-dimer, CTA chest and venous Doppler were obtained which did not reveal VTE's. Patient also complained about mild abdominal pain with CT abdomen/pelvis suggesting gastroenteritis and new splenic cyst. She was started on vancomycin, ceftriaxone, and given 1 L LR bolus. Given this presentation, ED provider discussed case with me and I decided to admit patient for cellulitis versus dermatitis. Hospital Course Hospital Course Hospital Course: Ruthy Giraldo is a 65-year-old female with a medical history significant for hypertension, fibromyalgia, anxiety/depression who presents with progressive right forearm swelling, pain since this morning. Patient states she noticed it this morning after getting out of the shower, and was initially localized in the ventral mid forearm and spread in all directions. Per her and her at bedside, they state it continues to spread even after admission approximately. Patient states she cannot think of anything that could have caused this including trauma, skin breakdown, changes in topicals including lotion/soap/etc. or jewelry, medications. Denies fever/chills, chest pain, shortness of breath. Upon further inquiry, patient does note that she was bitten by her cat a few days ago in her ventral forehead. There also seems to be small area of skin breakdown with scabbing over her ventral wrist. She does state that there is 6/10 pain with extension of her wrist but not significant. Denies pain in other joints. No drainage. Workup in the ED significant for WBC 23.8 with neutrophilic predominance, D-dimer 0.98, total bilirubin 1.5, CRP 124. Given elevated D-dimer, CTA chest and venous Doppler were obtained which did not reveal VTE's. Patient also complained about mild abdominal pain with CT abdomen/pelvis suggesting gastroenteritis and new splenic cyst. She was started on vancomycin, ceftriaxone, and given 1 L LR bolus. Given this presentation, ED provider discussed case with me and I decided to admit patient for cellulitis versus dermatitis. #Sepsis #Cellulitis with subcutaneous hemorrhage/purpura ? Presents with progressive right forearm swelling, redness, pain. Does endorse a cat bite few days ago on the ventral hand, but no other specific trigger that patient can recall. ? Initial WBC 23.8, heart rate in the 100s. CRP 124.6. WBC improved to 17.3, CRP to 163. One-time fever of 100.4 during admission. Tachycardia resolved. ? On exam, there was ecchymosis overlying erythema scattered on ventral forearm. Swelling briefly spread to left hand. Overall, swelling, pain and erythema have significantly improved with IV vancomycin, Zosyn, doxycycline. Patient also feels a lot better. ? Dermatitis vasculitis was also considered but with fevers infection is most probable. Given one-time dose of IV Solu-Medrol 60 mg. ? CT left upper extremity did not indicate abscess or necrotizing fasciitis. ? No drainage to culture, blood cultures NGTD. ? Discharged with Augmentin 500 mg 3 times daily, doxycycline 100 mg twice daily for 7 more days. ? Will closely follow-up with PCP next Saturday. #Abdominal pain #Gastroenteritis #Hyperbilirubinemia ? Diffuse mild abdominal pain/discomfort, improved. Denies diarrhea, constipation. ? CT abdomen/pelvis suggestive of gastroenteritis. Total bilirubin resolved to 0.6 today. ? Continue conservative therapy. #Splenic cyst ? New 5.2 x 4.7 cm cyst medial aspect of the spleen with a central thin septation. ? No focal tenderness. Given size, at risk of rupturing. Referred to general surgery for further evaluation. #Hypertension ? Continue home diltiazem, hold home losartan as BP stable. #Fibromyalgia ? Continue home pregabalin 225mg twice daily. #Anxiety/depression ? Continue home venlafaxine 37.5 mg twice daily, buspirone 10 mg twice daily. #GERD ? Continue home famotidine 20 mg twice daily. #Chronic constipation ? Continue home Linzess 72 mcg daily. Exam Data for Last 24 hours Vital signs and Labs for Last 24 Hours: Temp Pulse Resp BP Pulse Ox O2 Del Method O2 Flow Rate 98.1 F 71 16 126/75 94 L Room Air 2 08/04/25 07:57 08/04/25 07:57 08/04/25 07:57 08/04/25 07:57 08/04/25 08:30 08/04/25 11:00 08/04/25 03:00 Laboratory Results - last 24 hr 08/03/25 20:22: Procalcitonin 0.874 08/04/25 05:57: WBC 17.3 H, RBC 3.31 L, Hgb 10.8 L, Hct 31.7 L, MCV 95.8, MCH 32.6 H, MCHC 34.1, RDW 13.0, Plt Count 208, MPV 9.8, Neut % (Auto) 82.3 H, Lymph % (Auto) 10.4, Placer % (Auto) 6.0, Eos % (Auto) 0.1, Baso % (Auto) 0.1, Neut # (Auto) 14.2 H, Lymph # (Auto) 1.8, Placer # (Auto) 1.0, Eos # (Auto) 0.0, Baso # (Auto) 0.0, Sodium 138, Potassium 3.1 L, Chloride 104, Carbon Dioxide 26, Anion Gap 11.1, BUN 13 D, Creatinine 0.60, Estimated Creat Clear 65, Estimated GFR 100, Est GFR ( Amer) 121, Glucose 119 H, Calcium 7.8 L, Total Bilirubin 0.3, AST 33, ALT 16, Alkaline Phosphatase 88, C-Reactive Protein 163.0 H, Total Protein 6.0 L, Albumin 3.1 L, Globulin 2.9, Albumin/Globulin Ratio 1.1 I & O for Last 24 hours: Intake & Output 08/01/25 08/02/25 08/03/2508/04/25 23:59 23:59 23:59 23:59 Intake Total 1450 / 1672 1911 650 / 650 Output Total 100 / 100 0 / 0 0 / 0 Balance 1350 / 1572 1911 650 / 650 Weight 74.843 kg 74.843 kg 76.204 kg Microbiology Reports for the Last 24 Hours: Microbiology 08/02/25 17:47 Blood Blood Culture - Preliminary NO GROWTH AFTER 24 HOURS 08/02/25 17:40 Blood Blood Culture - Preliminary NO GROWTH AFTER 24 HOURS Results Data Completed and Pending Labs on day of discharge: Labs from last 24 hours 08/04/25 08/03/25 05:57 20:22 WBC 17.3 H RBC 3.31 L Hgb 10.8 L Hct 31.7 L MCV 95.8 MCH 32.6 H MCHC 34.1 RDW 13.0 Plt Count 208 MPV 9.8 Neut % (Auto) 82.3 H Lymph % (Auto) 10.4 Placer % (Auto) 6.0 Eos % (Auto) 0.1 Baso % (Auto) 0.1 Neut # (Auto) 14.2 H Lymph # (Auto) 1.8 Placer # (Auto) 1.0 Eos # (Auto) 0.0 Baso # (Auto) 0.0 Sodium 138 Potassium 3.1 L Chloride 104 Carbon Dioxide 26 Anion Gap 11.1 BUN 13 D Creatinine 0.60 Estimated Creat Clear 65 Estimated GFR 100 Est GFR ( Amer) 121 Glucose 119 H Calcium 7.8 L Total Bilirubin 0.3 AST 33 ALT 16 Alkaline Phosphatase 88 C-Reactive Protein 163.0 H Total Protein 6.0 L Albumin 3.1 L Globulin 2.9 Albumin/Globulin Ratio 1.1 Procalcitonin 0.874 Preliminary micro results at discharge 08/02/25 17:47 Blood Culture - Preliminary Blood NO GROWTH AFTER 24 HOURS 08/02/25 17:40 Blood Culture - Preliminary Blood NO GROWTH AFTER 24 HOURS DS: Diagnosis Discharge Diagnosis (1) Cellulitis of right arm: Status: Acute Code(s): L03.113 - Cellulitis of right upper limb (2) Splenic cyst: Status: Acute Code(s): D73.4 - Cyst of spleen Meds Home Medications and Allergies Home Medications ?Medication ?Instructions ?Recorded ?Confirmed ?Type furosemide 20 mg tablet 20 mg PO TID 10/15/17 08/02/25 History diltiazem HCl 30 mg tablet 30 mg PO BID 10/01/19 08/03/25 History famotidine 20 mg tablet 20 mg PO BID Reflux/Acid reflux 05/22/22 08/02/25 History sztbmcut-yvb-qunhg acid 0.4 1 each PO DAILY supplement' 05/22/22 08/02/25 History mg-lycopene 300 mcg-lutein 250 mcg tablet rosuvastatin 10 mg tablet 10 mg PO HS 01/11/25 08/02/25 History semaglutide 0.25 mg or 0.5 mg (2 0.5 mg SQ WEEKLY 01/11/25 08/02/25 History mg/3 mL) subcutaneous pen injector (Ozempic) venlafaxine 37.5 mg tablet 37.5 mg PO BID 01/11/25 08/03/25 History buspirone 10 mg tablet 10 mg PO BID 08/02/25 08/02/25 History linaclotide 72 mcg capsule 72 mcg PO DAILY 08/03/25 08/02/25 History (Linzess) losartan 25 mg tablet 25 mg PO DAILY 08/03/25 08/03/25 History Held on 08/04/25. Instructions: Resume on 08/18/25. Your blood pressures have been stable without this medication. Follow-up with your PCP for further guidance. pregabalin 225 mg capsule 225 mg PO BID 08/03/25 08/03/25 History amoxicillin 500 mg-potassium 1 tab PO TID 7 days #21 tabs 08/04/25 Rx clavulanate 125 mg tablet (Augmentin) doxycycline hyclate 100 mg capsule 100 mg PO BID 7 days #14 caps 08/04/25 Rx New Prescriptions to Start Prescriptions: amoxicillin-pot clavulanate [Augmentin] Victor Hugo Webb doxycycline hyclate Victor Hugo Webb Allergies Allergy/AdvReac Type Severity Reaction Status Date / Time Sulfa (Sulfonamide Allergy Unknown I-HIVES Verified 05/20/25 12:56 Antibiotics) (SULFA (SULFONAMIDE ANTIBIOTICS)) Discharge Plan Disposition Patient Disposition: Home, Self-Care Condition: Fair Discharge Order Discharge Orders: Discharge Order (Routine); Ordered 08/04/25 Ordered By: Victor Hugo Webb Follow up Plan Follow up with: Toy Paredes MD [Primary Care Provider, Internal Medicine] - 08/10/25 10:15 am Ronaldo Morrell MD [Staff Physician, General Surgery] - 1 week Prescriptions/Medication Reconciliation: New amoxicillin-pot clavulanate [Augmentin] 500-125 mg tablet 1 tab PO TID 7 Days Qty: 21 0RF doxycycline hyclate 100 mg capsule 100 mg PO BID 7 Days Qty: 14 0RF Continued diltiazem HCl 30 mg tablet 30 mg PO BID venlafaxine 37.5 mg tablet 37.5 mg PO BID rosuvastatin 10 mg tablet 10 mg PO HS Ozempic 0.25 mg or 0.5 mg (2 mg/3 mL) pen injector 0.5 mg SQ WEEKLY furosemide 20 mg tablet 20 mg PO TID famotidine 20 MG tablet 20 mg PO BID onjvevhm-ucc-DK-lycopen-lutein 1 EACH tablet 1 each PO DAILY buspirone 10 mg tablet 10 mg PO BID pregabalin 225 mg capsule 225 mg PO BID Linzess 72 mcg capsule 72 mcg PO DAILY Held losartan 25 mg tablet 25 mg PO DAILY Hold Instructions: Resume on 08/18/25. Your blood pressures have been stable without this medication. Follow-up with your PCP for further guidance. Problem Reconciliation Problems Reviewed?: Yes Patient Discharge Instructions Patient Instructions: DI for Cellulitis in Adults, DI for Sepsis in Adults Print Language: Prydeinig Providers Primary Care Provider: Toy Paredes Admit Provider: Victor Hugo Webb Attending Provider: Victor Hugo Webb
[2025-08-04] MEDS: DOXYCYCLINE HYCLATE 100 MG in 0.9 % SODIUM CHLORIDE 250 ML 167 MG IV (12:32)
--- NOTE | 2025-08-05 10:23 | SW/DCPLANNER ---
Spoke with patient on the phone. Patient stated that she is doing well. patient stated that she is aware of her upcoming appointments. Patient stated that she was able to get her new medicine picked up from [facility]. Patient stated that she has no concerns or questions at this time. Dae Chao
== END 2025-08-04 14:35 | disposition home or self-care (01) | DRG 872 ==
LOC: ER 19:51 → 2ND 20:31
PROVIDERS: Physician Assistant; Admitting Provider Student in an Organized Health Care Education/Training Program; Emergency Provider Student in an Organized Health Care Education/Training Program; PCP Internal Medicine Adolescent Medicine; Visit Provider Student in an Organized Health Care Education/Training Program
DX: A41.9 Sepsis, unspecified organism (principal); L03.113 Cellulitis of right upper limb; I10 Essential (primary) hypertension; M79.7 Fibromyalgia; F41.9 Anxiety disorder, unspecified; F32.A Depression, unspecified; K52.9 Noninfective gastroenteritis and colitis, unspecified; D73.4 Cyst of spleen; K21.9 Gastro-esophageal reflux disease without esophagitis; E80.6 Other disorders of bilirubin metabolism; K59.09 Other constipation; Z87.11 Personal history of peptic ulcer disease; Z79.899 Other long term (current) drug therapy; Z79.85 Long-term (current) use of injectable non-insulin antidiabetic drugs; Z88.2 Allergy status to sulfonamides; W55.03XA Scratched by cat, initial encounter
CPT/HCPCS: 36415; 71275; 73201; 74177; 80053; 81001; 83036; 84145; 84484; 84550; 85007; 85025; 85378; 86140; 87040; 87636; 93005; 93971; 99285; J0696; J1200; J1885; J2405; J2543; J2919; J3375; J7030; J7050; Q9967